=== PATIENT | female | born 1950 | race Hispanic/Latino ===

== ENCOUNTER 2019-11-22 14:35 | Outpatient (CLI) | payer MEDICARE, MEDICAID, SELFPAY ==
--- NOTE | ~2019-11-22 | CT_ITS ---
EXAMINATION: CT lung screening DATE: 11/22/2019 15:05 INDICATION: Personal history of tobacco dependence, prior smoker with 105 pack year smoking history TECHNIQUE: Computed tomography (CT) of the chest was performed without intravenous contrast. The dose -length product (DLP) was 175.42 mGy-cm. Automated exposure control and iterative reconstruction tech FOBO were employed. COMPARISON: 11/04/2018 FINDINGS: There are stable scattered pulmonary nodules measuring up to 4 mm. No new pulmonary nodule is identified. The lungs are free of acute opacities. There is mild emphysema. No pleural effusion or pneumothorax is seen. Calcified mediastinal lymph nodes are consistent with old granulomatous diseas e. No pathologically enlarged thoracic lymph nodes are identified. The heart size is normal. There is moderate thoracic spondylosis. IMPRESSION: 1. Lung-RADS category 2: Benign appearance or behavior. Continue annual screening with noncontrast lo w-dose chest CT in 12 months. Reviewed, dictated and finalized at location A. IMPRESSION: 1. Lung-RADS category 2: Benign appearance or behavior. Continue annual screeni ng with noncontrast low-dose chest CT in 12 months.
== END 2019-11-22 14:36 | disposition home or self-care (01) ==
LOC: ANHIMG 14:46
PROVIDERS: PCP Family Medicine; Visit Provider Family Medicine
DX: Z12.2 Encounter for screening for malignant neoplasm of respiratory organs (principal); Z87.891 Personal history of nicotine dependence
CPT/HCPCS: G0297

== ENCOUNTER 2020-06-27 14:24 | Outpatient (CLI) | payer MEDICARE, MEDICAID, SELFPAY ==
--- NOTE | ~2020-06-27 | MM_ITS ---
EXAMINATION: MM screening [facility] BI w [facility] HISTORY: Screening mammogram TECHNIQUE: Craniocaudal and mediolateral oblique 3-D tomosynthesis images were obtained and synthetic 2-D images were generated. CAD analysis was submitted and interpreted. COMPARISON: 05/10/2019, 04/30/2018, 01/22/2017 bilateral digital screening mammogram examinations BREAST PARENCHYMAL COMPOSITION: There are scattered areas of fibroglandular density. FINDINGS: Occasional bilateral benign calcifications. There is no evidence of suspicious mass, calcif ication, or architectural distortion to suggest malignancy in either breast. There has been no suspic ious interval change. IMPRESSION: 1. No mammographic evidence of malignancy. 2. Recommend routine screening mammography in one year. BI-RADS Category 2: Benign finding(s). Reviewed, dictated and finalized at location A.
== END 2020-06-27 14:25 | disposition home or self-care (01) ==
LOC: ANHIMG 14:26
PROVIDERS: PCP Family Medicine; Visit Provider Family Medicine
DX: Z12.31 Encounter for screening mammogram for malignant neoplasm of breast (principal)
CPT/HCPCS: 77063; 77067

== ENCOUNTER 2020-11-16 15:42 | Outpatient (CLI) | payer MEDICARE, MEDICAID, SELFPAY ==
--- NOTE | ~2020-11-16 | CT_ITS ---
EXAMINATION: CT lung screening DATE: 11/16/2020 16:05 INDICATION: History of tobacco dependence TECHNIQUE: Computed tomography (CT) of the chest was performed without intravenous contrast. The dose -length product was 213.50 mGy-cm. Automated exposure control and iterative reconstruction technique were employed. COMPARISON: Comparison to multiple prior studies sequentially, with oldest reviewed study dated 10/23. FINDINGS: Stable small bilateral pulmonary nodules, largest measuring 5 mm in the left lower lobe. No endobronchial lesions. There is a 4 mm fissural nodule on the left. No new pulmonary nodules or mass es. There is atherosclerosis. No mediastinal lymphadenopathy. The upper abdomen is unremarkable. Mild thoracic spondylosis. No acute osseous abnormality. Stable discoid atelectasis/scarring in the lingu la. IMPRESSION: 1. Lung-RADS category 2: Benign appearance or behavior. Continue annual screening with noncontrast lo w-dose chest CT in 12 months. Reviewed, dictated and finalized at location A. ATOR STARTER IMPRESSION: 1. Lung-RADS category 2: Benign appearance or behavior. Continue annual screeni ng with noncontrast low-dose chest CT in 12 months.
== END 2020-11-16 15:43 | disposition home or self-care (01) ==
LOC: ANHIMG 15:43
PROVIDERS: PCP Family Medicine; Visit Provider Family Medicine
DX: Z12.2 Encounter for screening for malignant neoplasm of respiratory organs (principal); Z87.891 Personal history of nicotine dependence
CPT/HCPCS: 71271

== ENCOUNTER 2021-09-17 15:31 | Outpatient (CLI) | payer MEDICARE, MEDICAID, SELFPAY ==
--- NOTE | ~2021-09-17 | MM_ITS ---
EXAMINATION: MM screening [facility] BI w [facility] HISTORY: Screening TECHNIQUE: Craniocaudal and mediolateral oblique 3-D tomosynthesis images were obtained and synthetic 2-D images were generated. CAD analysis was submitted and interpreted. COMPARISON: Comparison to multiple prior studies sequentially, with oldest reviewed study dated 07/09. BREAST PARENCHYMAL COMPOSITION: Breast composed of scattered areas of fibroglandular density. FINDINGS: There is no evidence of suspicious mass, calcification, or architectural distortion to sugg est malignancy in either breast. There has been no suspicious interval change. IMPRESSION: 1. No mammographic evidence of malignancy. 2. Recommend routine screening mammography in one year. BI-RADS Category 1: Negative Reviewed, dictated and finalized at location A. AZZO INSTALLER
== END 2021-09-17 15:32 | disposition home or self-care (01) ==
PROVIDERS: PCP Family Medicine; Visit Provider Family Medicine
DX: Z12.31 Encounter for screening mammogram for malignant neoplasm of breast (principal)
CPT/HCPCS: 77063; 77067

== ENCOUNTER 2022-10-03 15:33 | Outpatient (CLI) | payer MEDICARE, MEDICAID, SELFPAY ==
--- NOTE | ~2022-10-03 | CT_ITS ---
EXAMINATION: CT lung screening DATE: 10/03/2022 15:56 INDICATION: Nicotine dependence TECHNIQUE: Computed tomography (CT) of the chest was performed without intravenous contrast. Addition al 3D reconstructions utilizing coronal maximum intensity projection (MIP) were performed. Automated exposure control and iterative reconstruction technique were employed. The dose-length product was 26 4.41 mGy-cm. COMPARISON: 11/16/2020 FINDINGS: No interval change in a few calcified and noncalcified small bilateral pulmonary nodules, the largest in the left lower lobe measuring 4-5 mm. No new or enlarging pulmonary nodules. Mild atelectasis in the lingula and right middle lobe. No pulmonary edema, pneumonia or pleural effusion. Heart size is n ormal. Atherosclerotic coronary artery calcific location. No pericardial effusion. Thoracic aorta is normal in caliber. Calcified mediastinal lymph nodes and a few small splenic calcific lesions consist ent with old granulomatous disease. There are bridging osteophytes at multiple levels in the spine, c onsistent with diffuse idiopathic skeletal hyperostosis (DISH). IMPRESSION: 1. Lung-RADS category 2: Benign appearance or behavior. Continue annual screening with noncontrast lo w-dose chest CT in 12 months. Reviewed, dictated and finalized at location B. PRESS FEEDER IMPRESSION: 1. Lung-RADS category 2: Benign appearance or behavior. Continue annual screeni ng with noncontrast low-dose chest CT in 12 months.
== END 2022-10-03 15:34 | disposition home or self-care (01) ==
PROVIDERS: PCP Family Medicine; Visit Provider Family Medicine
DX: Z12.2 Encounter for screening for malignant neoplasm of respiratory organs (principal); Z87.891 Personal history of nicotine dependence
CPT/HCPCS: 71271

== ENCOUNTER 2022-10-23 13:53 | Outpatient (CLI) | payer MEDICARE, MEDICAID, SELFPAY ==
--- NOTE | ~2022-10-23 | US_ITS ---
US arterial ankle brachial ind INDICATION: Lower extremity edema TECHNIQUE: Segmental pressures and plethysmographic and Doppler waveforms of the brachial and lower e xtremity arteries were obtained. COMPARISON: None. FINDINGS: Right and left brachial artery pressures of 125 mm Hg and 122 mm Hg, respectively, are concordant (no rmal difference <= 30 mmHg). The right ankle-brachial index (SANDY) is 1.22 (normal >= 0.9-1.0). The right great toe-brachial index (TBI) is 0.93 (normal >= 0.60). The left SANDY is 1.26. The left TBI is 0.92. IMPRESSION: 1. Normal bilateral ankle-brachial indices. Reviewed, dictated and finalized at location A. BIKE RACER
--- NOTE | ~2022-10-23 | US_ITS ---
EXAMINATION:US venous doppler LE BI INDICATION:Lower extremity edema TECHNIQUE: Multiple grayscale, color flow and Doppler images of the right and left lower extremity de ep venous systems were obtained and reviewed. COMPARISON:No prior studies for comparison. FINDINGS: The common femoral, superficial femoral and popliteal veins demonstrate normal respiratory variation, augmentation and compressibility. Color flow is also seen within the posterior tibial, pe roneal, greater saphenous and profunda veins. IMPRESSION: 1: No lower extremity deep venous thrombosis. Reviewed, dictated and finalized at location A. AL GUNNER SUPERINTENDENT
== END 2022-10-23 13:54 | disposition home or self-care (01) ==
PROVIDERS: PCP Family Medicine; Visit Provider Family Medicine
DX: R60.0 Localized edema (principal); M79.605 Pain in left leg; I73.9 Peripheral vascular disease, unspecified; M79.604 Pain in right leg
CPT/HCPCS: 93922; 93970

== ENCOUNTER 2022-11-12 15:10 | Outpatient (CLI) | payer MEDICARE, MEDICAID, SELFPAY ==
--- NOTE | ~2022-11-12 | MM_ITS ---
EXAMINATION: MM screening [facility] BI w [facility] HISTORY: Screening mammogram TECHNIQUE: Craniocaudal and mediolateral oblique 3-D tomosynthesis images were obtained and synthetic 2-D images were generated. CAD analysis was submitted and interpreted. COMPARISON: 09/17/2021, 06/27/2020, 05/10/2019 BREAST PARENCHYMAL COMPOSITION: The breasts are almost entirely fatty. FINDINGS: No suspicious mass, calcification, or architectural distortion are identified in either mansi ast to suggest malignancy. There has been no suspicious interval change. IMPRESSION: 1. No mammographic evidence of malignancy. 2. Recommend routine screening mammography in one year. BI-RADS Category 1: Negative Reviewed, dictated and finalized at location A. A [employer]
== END 2022-11-12 15:11 | disposition home or self-care (01) ==
LOC: ANHIMG 15:16
PROVIDERS: PCP Family Medicine; Visit Provider Family Medicine
DX: Z12.31 Encounter for screening mammogram for malignant neoplasm of breast (principal)
CPT/HCPCS: 77063; 77067

== ENCOUNTER 2022-11-13 17:19 | Outpatient (CLI) | payer MEDICARE, MEDICAID, SELFPAY ==
--- NOTE | ~2022-11-13 | DEXA_ITS ---
Bone Density Report Name: ANGELY JETER Age: 72 Sex: Female Ethnicity: White Date of : 1950 Indication: monitoring treatment; height loss; asthma or emphysema; rheumatoid arthritis; postmenopausal Referring Provider: SAE, LUIS F Ocasio Study: Bone densitometry was performed. Exam Date: November 13, 2022 Accession number: [id number] Bone Density: Region BMD T-score Z-score Classification AP Spine(L1-L4) 1.012 -0.3 2.0 Normal Femoral Neck (Left) 0.689 -1.4 0.5 Osteopenia Total Hip (Left) 0.884 -0.5 1.2 Normal Femoral Neck (Right) 0.618 -2.1 -0.1 Osteopenia Total Hip (Right) 0.772 -1.4 0.3 Osteopenia Total Hip Mean 0.828 -1.0 0.8 Normal World Health Organization criteria for BMD impression classify patients as: Normal (T-score at or above -1.0), Osteopenia (T-score between -1.0 and -2.5), or Osteoporosis (T-score at or below -2.5). 10-year Fracture Risk: FRAX not reported because: Treated for osteoporosis Previous Exams: Region Exam Age BMD T-score BMD Change BMD Change Date g/cm2 vs Baseline vs Previous Total Hip(Left) 11/13/2022 72 0.884 -0.5 -0.041 (-4.5%) -0.056 (-5.9%) 11/04/2018 68 0.940 0.0 0.015 (1.6%) 0.016 (1.7%) 08/19/2016 66 0.924 -0.1 -0.001 (-0.1%) -0.001 (-0.1%) 08/02/2014 64 0.925 -0.1 Total Hip(Right) 11/13/2022 72 0.772 -1.4 -0.072 (-8.5%) -0.066 (-7.9%) 11/04/2018 68 0.838 -0.9 -0.006 (-0.7%) -0.001 (-0.1%) 08/19/2016 66 0.839 -0.8 -0.004 (-0.5%) -0.004 (-0.5%) 08/02/2014 64 0.843 -0.8 *Denotes significance at 95% confidence level, LSC for Total Hip = 0.027 g/cm2 Clinical Information Provided by Patient: Has rheumatoid arthritis Is being treated for osteoporosis Has used the following medications: Vitamin D, Calcium Has the following medical conditions: Asthma or Emphysema Patient maximum height was 65 Menopause Age: 46 No regular weight bearing exercise Does not regularly consume dairy products Drinks caffeinated beverages Onset of menses at age 13 Number of children 0 Impression: The patient has low bone mass, based on the Right Femoral Neck T-score. The BMD for the Total Hip(Left) decreased, changing by -5.9% since the last DXA exam. The BMD for the Total Hip(Right) decreased, changing by -7.9% since the last DXA exam. Discussion: SIGNIFICANT BONE LOSS OBSERVED. Adherence to therapy (including calcium and vitamin D intake) should be assessed. If compliance is not a factor, review management an
== END 2022-11-13 17:20 | disposition home or self-care (01) ==
PROVIDERS: PCP Family Medicine; Visit Provider Family Medicine
DX: Z78.0 Asymptomatic menopausal state (principal); F17.200 Nicotine dependence, unspecified, uncomplicated; M85.852 Other specified disorders of bone density and structure, left thigh; M85.851 Other specified disorders of bone density and structure, right thigh
CPT/HCPCS: 77080

== ENCOUNTER 2024-02-24 13:35 | Outpatient (CLI) | payer MEDICARE, MEDICAID, SELFPAY ==
--- NOTE | ~2024-02-24 | MM_ITS ---
EXAMINATION: MM screening [facility] BI w [facility] HISTORY: Screening TECHNIQUE: Craniocaudal and mediolateral oblique 3-D tomosynthesis images were obtained and synthetic 2-D images were generated. CAD analysis was submitted and interpreted. COMPARISON: Comparison to multiple prior studies sequentially, with oldest reviewed study dated 04/2017. BREAST PARENCHYMAL COMPOSITION: Not dense: There are scattered areas of fibroglandular density. FINDINGS: There is no evidence of suspicious mass, calcification, or architectural distortion to sugg est malignancy in either breast. There has been no suspicious interval change. IMPRESSION: 1. No mammographic evidence of malignancy. 2. Recommend routine screening mammography in one year. BI-RADS Category 1: Negative Reviewed, dictated and finalized at location B.
== END 2024-02-24 13:36 | disposition home or self-care (01) ==
PROVIDERS: PCP Family Medicine; Visit Provider Family Medicine
DX: Z12.31 Encounter for screening mammogram for malignant neoplasm of breast (principal)
CPT/HCPCS: 77063; 77067

== ENCOUNTER 2024-06-13 00:50 | Day surgery (SDC) | payer MEDICARE, SELFPAY ==
[2024-05-25 13:00] VITALS: BMI 42.0
--- NOTE | 2024-06-13 09:17 | SUR.PREOP ---
[place] consent offered. Pt refused.
[2024-06-13 09:33] VITALS: BP 153/75; PULSE 58; RESP 20; TEMP 36.4; O2SAT 99; BMI 39.9
--- NOTE | 2024-06-13 09:40 | WPDANESEPPF ---
Anes - Initial Pre Proc Eval Procedure: Operation Date: 06/13/24 10:30 Proposed Procedures p Colonoscopy - Jayy Goff MD Date/Time: 06/13/24 09:40 Surgeon: Jayy Goff MD Pre Op Diagnosis: Personal history colon polyps Patient Data Age: 73 Gender: F Height: 1.63 m Weight: 105.6 kg Last Vital Signs Temp 36.4 C 06/13/24 09:33 Pulse 58 L 06/13/24 09:33 Resp 20 06/13/24 09:33 BP 153/75 H 06/13/24 09:33 Pulse Ox 99 06/13/24 09:33 O2 Del Method Room Air 06/13/24 09:33 Allergies Allergy/AdvReac Type Severity Reaction Status Date / Time aspirin Allergy Unknown BLEEDING Verified 06/13/24 09:17 lisinopril Allergy Unknown Swelling Verified 06/13/24 09:17 Home Medications Medication Instructions Recorded Confirmed Type amlodipine 10 mg tablet 10 mg PO DAILY 05/25/24 06/13/24 History atorvastatin 20 mg tablet 20 mg PO DAILY 05/25/24 06/13/24 History clobetasol 0.05 % topical cream 1 applic topical DAILY PRN Itching 05/25/24 06/13/24 History dulaglutide 0.75 mg/0.5 mL 0.75 mg subcut WEEKLY 05/25/24 06/13/24 History subcutaneous pen injector (Trulicity) ergocalciferol (vitamin D2) 1,250 1,250 mcg PO DAILY 05/25/24 06/13/24 History mcg (50,000 unit) capsule famotidine 20 mg tablet 20 mg PO DAILY 05/25/24 06/13/24 History fluticasone propionate 50 50 mcg intranasal DAILY 05/25/24 06/13/24 History mcg/actuation nasal spray,suspension levothyroxine 112 mcg tablet 112 mcg PO DAILY 05/25/24 06/13/24 History metformin 500 mg tablet,extended 500 mg PO BID 05/25/24 06/13/24 History release 24 hr metoprolol succinate 100 mg 100 mg PO DAILY 05/25/24 06/13/24 History tablet,extended release 24 hr zolpidem 5 mg tablet 5 mg PO DAILY 05/25/24 06/13/24 History Calcium Adult 1 tab-cap PO DAILY 06/13/24 06/13/24 History Vitamin B-6 1 tab-cap PO DAILY 06/13/24 06/13/24 History Vitamin C 1 tab-cap PO DAILY 06/13/24 06/13/24 History albuterol 90 mcg/actuation aerosol 90 mcg inhalation DAILY PRN SOB 06/13/24 06/13/24 History inhaler hydrochlorothiazide 25 mg tablet 25 mg PO DAILY 06/13/24 06/13/24 History potassium chloride 20 mEq 20 meq PO DAILY 06/13/24 06/13/24 History tablet,extended release umeclidinium 62.5 mcg-vilanterol 1 inh inhalation DAILY 06/13/24 06/13/24 History 25 mcg/actuation powdr for inhalation (Anoro Ellipta) zinc 1 tab-cap PO DAILY 06/13/24 06/13/24 History Patient hx anesthesia problems: none Family hx anesthesia problems: none Results Review: All pre-operative results and documents have been reviewed as part of the pre-operative evaluation. [facility] Past Medical History Medical History (Updated 06/13/24 @ 09:40 by Yousif Vergara MD) HTN (hypertension) Morbid obesity EILEEN (obstructive sleep apnea) Family History Family History Other Cerebrovascular accident Diabetes mellitus Family history of arthritis Family history of blood dyscrasia Family history of cardiovascular disease Family history of elevated blood lipids Family history of genitourinary disease Family history of hearing loss Family history of migraine headaches Family history of obesity Hypertension Malignant neoplasm of prostate Social History Social History Smoking packs per day: 3 Smoking cigarettes per day: 60.0 Smoking status: Former smoker Tobacco type: cigarettes Alcohol intake: current Living arrangements: alone Spiritual care concerns: No Anes - Eval Final PreProcedure Day of Procedure 06/13/24 09:40 Patient weight: morbidly obese Heart: regular rate and rhythm Lungs: clear to auscultation Airway: Mallampati scale class II Neurological: alert and oriented Last oral intake: >/= 8 hours ASA classification: III Emergent: no Anesthetic plan: proceed Anesthesia type and monitoring: general GIVS
[2024-06-13] MEDS: LACTATED RINGERS 1,000 ML 150 ML IV CONT (09:50)
[2024-06-13 09:51] LABS: Glucose Point of Care 94 mg/dl (65-105)
--- NOTE | 2024-06-13 10:31 | PM.HPGS ---
History of Present Illness History of Present Illness Consent: Risks, benefits, and alternatives have been discussed and questions answered. Patient agrees to proceed with procedure. Chief complaint: Personal history colon polyps Narrative: Kimberly Delgado is a 73 year old female with history of colon polyp Review of Systems Review of Systems: All systems reviewed & are unremarkable except as noted in HPI and below PMFSH Past Medical History Medical History (Updated 06/13/24 @ 10:31 by Jayy Goff MD) Colon polyp HTN (hypertension) Morbid obesity EILEEN (obstructive sleep apnea) Family History Family History Other Cerebrovascular accident Diabetes mellitus Family history of arthritis Family history of blood dyscrasia Family history of cardiovascular disease Family history of elevated blood lipids Family history of genitourinary disease Family history of hearing loss Family history of migraine headaches Family history of obesity Hypertension Malignant neoplasm of prostate Social History Social History Smoking packs per day: 3 Smoking cigarettes per day: 60.0 Smoking status: Former smoker Tobacco type: cigarettes Alcohol intake: current Living arrangements: alone Spiritual care concerns: No Meds Home Medications and Allergies Home Medications Medication Instructions Recorded Confirmed Type amlodipine 10 mg tablet 10 mg PO DAILY 05/25/24 06/13/24 History atorvastatin 20 mg tablet 20 mg PO DAILY 05/25/24 06/13/24 History clobetasol 0.05 % topical cream 1 applic topical DAILY PRN Itching 05/25/24 06/13/24 History dulaglutide 0.75 mg/0.5 mL 0.75 mg subcut WEEKLY 05/25/24 06/13/24 History subcutaneous pen injector (Trulicity) ergocalciferol (vitamin D2) 1,250 1,250 mcg PO DAILY 05/25/24 06/13/24 History mcg (50,000 unit) capsule famotidine 20 mg tablet 20 mg PO DAILY 05/25/24 06/13/24 History fluticasone propionate 50 50 mcg intranasal DAILY 05/25/24 06/13/24 History mcg/actuation nasal spray,suspension levothyroxine 112 mcg tablet 112 mcg PO DAILY 05/25/24 06/13/24 History metformin 500 mg tablet,extended 500 mg PO BID 05/25/24 06/13/24 History release 24 hr metoprolol succinate 100 mg 100 mg PO DAILY 05/25/24 06/13/24 History tablet,extended release 24 hr zolpidem 5 mg tablet 5 mg PO DAILY 05/25/24 06/13/24 History Calcium Adult 1 tab-cap PO DAILY 06/13/24 06/13/24 History Vitamin B-6 1 tab-cap PO DAILY 06/13/24 06/13/24 History Vitamin C 1 tab-cap PO DAILY 06/13/24 06/13/24 History albuterol 90 mcg/actuation aerosol 90 mcg inhalation DAILY PRN SOB 06/13/24 06/13/24 History inhaler hydrochlorothiazide 25 mg tablet 25 mg PO DAILY 06/13/24 06/13/24 History potassium chloride 20 mEq 20 meq PO DAILY 06/13/24 06/13/24 History tablet,extended release umeclidinium 62.5 mcg-vilanterol 1 inh inhalation DAILY 06/13/24 06/13/24 History 25 mcg/actuation powdr for inhalation (Anoro Ellipta) zinc 1 tab-cap PO DAILY 06/13/24 06/13/24 History Allergies Allergy/AdvReac Type Severity Reaction Status Date / Time aspirin Allergy Unknown BLEEDING Verified 06/13/24 09:17 lisinopril Allergy Unknown Swelling Verified 06/13/24 09:17 Vital Signs Vital Signs - 24 hr 06/13/24 09:33 Temperature 97.6 F Pulse Rate 58 L Respiratory Rate 20 Blood Pressure 153/75 H Pulse Oximetry 99 Oxygen Delivery Room Air Exam Const: General: comfortable and no acute distress HENMT: Face/Nose/Sinus: Normal nares present Eyes: General: appearance normal, both eyes and all related structures Neck: Neck: no JVD Resp: Auscultation: clear to auscultation bilaterally Cardio: Rate: regular rate Rhythm: regular rhythm GI: Inspection: non-distended GI Palp: Yes Soft to palpation Skin: General skin exam: normal color Neuro: General: gait no
--- NOTE | 2024-06-13 10:51 | SUR.OPER ---
Ascending colon polyp not retrieved. Dr. Herrera notified.
[2024-06-13 10:53] VITALS: BP 84/35; PULSE 58; RESP 17; O2SAT 98
[2024-06-13 11:03] VITALS: BP 104/51; PULSE 48; RESP 16; O2SAT 97
[2024-06-13 11:13] VITALS: BP 118/46; PULSE 48; RESP 16; O2SAT 97
== END 2024-06-13 11:28 | disposition home or self-care (01) ==
PROVIDERS: PCP Nurse Practitioner Family; Visit Provider Internal Medicine Gastroenterology
PROC: 0DJD8ZZ Inspection of Lower Intestinal Tract, Via Natural or Artificial Opening Endoscopic (ICD-10-PCS; CPT 45378; principal; 2024-06-13 10:30)
DX: Z12.11 Encounter for screening for malignant neoplasm of colon (principal); K63.5 Polyp of colon; K64.8 Other hemorrhoids; K57.30 Diverticulosis of large intestine without perforation or abscess without bleeding; I10 Essential (primary) hypertension; G47.33 Obstructive sleep apnea (adult) (pediatric); E66.01 Morbid (severe) obesity due to excess calories; Z68.41 Body mass index [BMI] 40.0-44.9, adult; Z79.85 Long-term (current) use of injectable non-insulin antidiabetic drugs; Z79.84 Long term (current) use of oral hypoglycemic drugs; Z79.51 Long term (current) use of inhaled steroids; Z87.891 Personal history of nicotine dependence; Z80.42 Family history of malignant neoplasm of prostate; Z82.49 Family history of ischemic heart disease and other diseases of the circulatory system
CPT/HCPCS: 45385; 82948; J2704; J7120

== ENCOUNTER 2025-02-08 13:25 | Inpatient (IN) | payer MEDICARE, MEDICAID, SELFPAY ==
[2025-02-08] VITALS (28 sets, daily range): BP systolic 116–158; BP diastolic 46–85; PULSE 60–112; RESP 14–22; TEMP 36.4; O2SAT 90–100; BMI 42.7
--- NOTE | ~2025-02-08 | US_ITS ---
EXAMINATION: US abdomen limited DATE: 02/09/2025 08:56 INDICATION: Gallstones, epigastric pain, nausea and vomiting. TECHNIQUE: Multiple grayscale and Doppler ultrasound images of the abdomen were obtained. COMPARISON: None FINDINGS: The pancreatic head and body are normal in appearance. The pancreatic tail is not visualized. Liver has normal contour, with a smooth surface. There is increased parenchymal echogenicity and coarsened echotexture consistent with diffuse hepatic steatosis. Geographic regions of more hypoechoic focal fa tty sparing along the gallbladder fossa. There is a 6 cm and 7 mm more echogenic focus in the right h epatic lobe which appears to correspond to a macroscopic fat attenuation lesion on the prior CT which could represent either focally more increased hepatic steatosis or a small lipoma. No correlate is i dentified for the additional more peripheral high attenuation/enhancing subcapsular hepatic lesions i dentified on prior CT. No intrahepatic biliary duct dilation suspected. Portal venous flow was seen i n the hepatopetal, normal direction and has normal Doppler waveform. 2.5 cm shadowing gallstone at th e neck of the otherwise normal-appearing gallbladder. Sonographic Perdue sign was reported as negativ e by the wheel molder. The common bile duct measures 3-4 mm, which is normal. Visualized portion of th e right kidney demonstrates normal contour and echogenicity with no hydronephrosis. Visualized cephal ad inferior vena cava is normal. IMPRESSION: 1. Cholelithiasis with normal appearing gallbladder and no sonographic Perdue sign to suggest acute c holecystitis. 2. Diffuse hepatic steatosis with focal sparing along the gallbladder fossa. No correlate identified for the small regions of subcapsular hyperdensity/enhancement on prior CT most likely related to foca l fatty sparing or transient hepatic attenuation difference. Consider pre and postcontrast MRI for fu rther evaluation. Reviewed, dictated and finalized at location A. IMPRESSION: 1. Cholelithiasis with normal appearing gallbladder and no sonographic Perdue s ign to suggest acute cholecystitis. 2. Diffuse hepatic steatosis with focal sparing along the gallbladder fossa. No correlate identified for the small regions of subcapsular hyperdensity/enhance ment on prior CT most likely related to focal fatty sparing or transient hepati c attenuation difference. Consider pre and postcontrast MRI for further evaluat ion.
--- NOTE | ~2025-02-08 | CT_ITS ---
CTA chest abdomen pelvis Ordering provider: Citlalli Grimm PA-C History: 74 years Female with . chest pain, abd pain . Comparison: None. Technique: CT chest with IV contrast. CT abdomen and pelvis CT abdomen and pelvis with IV and with or al contrast. Radiation reduction technique utilized The dose-length product was 1840.39 mGy-cm. 100 mL Omnipaque 350 was given IV. FINDINGS: CHEST: --VISUALIZED THORACIC INLET: Normal. --MEDIASTINUM: Aorta/coronary arteries: Mild atheromatous disease. Heart/other: The heart is slightly enlarged. Lymph nodes: No mediastinal or hilar adenopathy. --LUNGS: No pulmonary nodules or masses. No infiltrates or effusions. No pneumothorax. Dependent atel ectatic changes. --MUSCULOSKELETAL: Soft tissues: The superficial soft tissues are normal. Bones: Age appropriate degenerative changes of the spine. ABDOMEN/PELVIS: --MUSCULOSKELETAL: Bones: Age appropriate degenerative changes of the spine. No suspicious bony lytic or sclerotic lesio ns. Superficial soft tissues: The superficial soft tissues are normal. --UPPER ABDOMINAL ORGANS: Liver: 9 mm enhancing lesions seen in the left lobe of the liver which may be HCC versus arteriovenou s shunting. Follow-up advised. Another focal infiltrate is also seen in the subcapsular area of the r ight lobe measuring 1.3 cm. Follow-up advised. Filling defect in the portal vein versus mixing of blood with contrast is seen. Clinical correlation and if clinically warranted ultrasound evaluation advised. Gallbladder: Cholelithiasis. Spleen: Normal. Small hypodensity suggestive of a cyst is seen in the inferior portion of the spleen. Stomach/duodenum: Thickened lower esophagus suggestive of reflux esophagitis. Pancreas: Normal. Slightly prominent pancreatic duct. Adrenals: Normal. Kidneys: Right kidney lower pole cyst is seen measuring 1.6 cm. --PELVIC ORGANS: The bladder shows slightly thickened wall may indicate cystitis. Clinical correlatio n advised. No bladder stones. --BOWEL AND MESENTERY: Colon: Mild diverticulosis without diverticulitis sigmoid colon. Slightly thickened wall of the sigmo id colon which may indicate colitis. Follow-up advised. Normal appendix. Small Bowel: Normal. No obstruction. Peritoneum/mesentery: No free air or free fluid. No mesenteric lymphadenopathy. --RETROPERITONEUM: Mild atheromatous disease of the abdominal aorta. No retroperitoneal lymphadenop athy. IMPRESSION: CHEST: 1. No pulmonary embolism. 2. No acute cardiopulmonary pathology. ABDOMEN/PELVIS: 1. No enhancing lesions in the liver. Differential include hepatocellular carcinoma versus arteriove nous shunting. Follow-up advised. 2. Filling defect in the portal vein which may be mixing of blood with contrast. Thrombus is less li alicia although cannot be excluded. Clinical correlation and if warranted ultrasound is advised. 3. Cholelithiasis. 4. Slight thickening of the wall of the sigmoid colon which may indicate colitis. Follow-up advised. 5. Thickened lower esophagus which may indicate reflux esophagitis. Reviewed, dictated and finalized at location A. IMPRESSION: CHEST: 1. No pulmonary embolism. 2. No acute cardiopulmonary pathology. ABDOMEN/PELVIS: 1. No enhancing lesions in the liver. Differential include hepatocellular carc inoma versus arteriovenous shunting. Follow-up advised. 2. Filling defect in the portal vein which may be mixing of blood with contras t. Thrombus is less likely although cannot be excluded. Clinical correlation an d if warranted ultrasound is advised. 3. Cholelithiasis. 4. Slight thickening of the wall of the sigmoid colon which may indicate colit is. Follow-up advised. 5. Thickened lower esophagus which may indicate reflux esophagitis.
--- NOTE | ~2025-02-08 | US_ITS ---
US retroperitoneal duplex ltd Ordering provider: Citlalli Grimm PA-C History: . abnormal CT . Comparison: None. FINDINGS/impression: No evidence of hepatic or portal vein thrombosis seen. Gallbladder stone. Reviewed, dictated and finalized at location A.
--- NOTE | ~2025-02-08 | XR_ITS ---
XR chest 1V portable 02/08/2025 14:28 Indication: Epigastric abdomen pain Procedure: AP portable chest Comparison: 02/08/2019 Findings: Borderline heart size with bibasilar airspace disease. Heart size normal. There is atherosc lerosis of the aorta. No pleural effusion or pneumothorax. No acute osseous abnormality. Impression: 1: Bibasilar airspace disease may represent atelectasis, edema or pneumonia. Reviewed, dictated and finalized at location A. Impression: 1: Bibasilar airspace disease may represent atelectasis, edema or pneumonia.
--- NOTE | ~2025-02-08 | MR_ITS ---
EXAMINATION: MR abdomen wo/w con DATE: 02/09/2025 13:17 INDICATION: Diffuse hepatic steatosis with indeterminate liver lesions on prior CT. TECHNIQUE: Magnetic resonance imaging (MRI) of the abdomen was performed without and with 20 mL Multi inocencia intravenous contrast. Sequences included coronal T2-weighted SS-FSE, coronal and axial FS 2D-F IESTA, axial STIR FSE, axial T2-weighted SS-FSE, axial T2-weighted FS SS-FSE, axial diffusion-weighte d SE, axial dual-echo T1-weighted FSPGR, and axial and coronal T1-weighted LAVA. Postcontrast axial T 1-weighted LAVA images were obtained in a time course. Postcontrast coronal T1-weighted LAVA images w ere obtained. COMPARISON: CT dated 02/08/2025 FINDINGS: Borderline heart size. No pericardial or pleural effusion. Mild bibasilar atelectasis. Slight signal dropout in the liver on opposed phase images consistent with mild diffuse hepatic steatosis with foca l sparing along the gallbladder fossa and melody hepatis. There is a 5 mm T1 hyperintense, fat saturat ing intrahepatic lipoma within the right hepatic lobe no abnormally enhancing hepatic lesions to sugg est neoplasm. The small regions of peripheral enhancement on the prior arterial phase CT would be mos t consistent with transient hepatic attenuation difference. Large low signal intensity gallstone at t he neck of the gallbladder. There is some dependently layering sludge in the fundus of the gallbladde r. There is a minimal amount of pericholecystic fluid between the liver and gallbladder at the gallbl adder fossa. There is focal adenomyomatosis at the fundus of the gallbladder. The gallbladder measure s 13.9 x 3.9 x 4.2 cm. Spleen, pancreas and bilateral adrenal glands are normal. There are few T2 hyp erintense nonenhancing bilateral renal cysts the largest on the right measuring 1.7 cm. There are few scattered colonic diverticula without adjacent from trace stranding to suggest of typhlitis. No keith l obstruction. Normal appendix. No pathologically enlarged abdominal or upper pelvic lymphadenopathy. Multiple tiny foci of susceptibility artifact along the periumbilical anterior abdominal wall consis tent with prior surgery potentially umbilical hernia repair. Severe cervical spondylosis with fibrofa tty degenerative endplate changes at L4-L5. Marrow signal is otherwise unremarkable. IMPRESSION: 1. . Mild diffuse hepatic steatosis with 5 mm macroscopic fat containing likely lipoma in the right h epatic lobe. No other hepatic lesions identified. No correlate identified for the appearance small il l-defined regions of peripheral enhancement at the liver on the prior arterial phase CT which would b e most consistent with transient hepatic attenuation difference. 2. Persistent gallstone at the neck of the gallbladder with trace amount of pericholecystic fluid bet ween the gallbladder and liver at the gallbladder fossa and could not exclude early acute cholecystit is although the Perdue sign was normal and the prior ultrasound. Could consider HIDA scan for more de finitive determination. 3. Focal adenomyomatosis at the fundus of the gallbladder. Reviewed, dictated and finalized at location A. IMPRESSION: 1. . Mild diffuse hepatic steatosis with 5 mm macroscopic fat containing likely lipoma in the right hepatic lobe. No other hepatic lesions identified. No alan elate identified for the appearance small ill-defined regions of peripheral enh ancement at the liver on the prior arterial phase CT which would be most consis tent with transient hepatic attenuation difference. 2. Persistent gallstone at the neck of the gallbladder with trace amount of per icholecystic fluid between the gallbladder and liver at the gallbladder fossa a nd could not exclude early acute cholecystitis although the Perdue sign was nor mal and the prior ultrasound. Could consider HIDA scan for more definitive dete rmination. 3. Focal adenomyomatosis at the fundus of the gallbladder.
--- NOTE | 2025-02-08 13:52 | ED_ITS ---
HPI - Nausea/Vomiting/Diarrhea General Chief complaint: Nausea/Vomiting/Diarrhea <Citlalli Grimm PA-C - Last Filed: 02/08/25 18:34> Stated complaint: N/V <Citlalli Grimm PA-C - Last Filed: 02/08/25 18:34> Time Seen by Provider: 02/08/25 13:33 <Citlalli Grimm PA-C - Last Filed: 02/08/25 18:34> History of Present Illness HPI Narrative: 72-year-old female with history of EILEEN, hypertension, thyroid disease s/p hernia repair presents to the emergency department for nausea and vomiting that started yesterday evening after eating a turkey sandwich. Patient states she has been having pain to her epigastrium/chest that radiates to her back with associated nausea and vomiting. She states now she is dry heaving because she does not have anything left in her stomach. She reports black stools. Denies fever but endorses chills. Denies dysuria or hematuria, cough or congestion. She is also reporting shortness of breath on my evaluation. She endorses lower extremity edema that is been there for ?a while?. Denies history of CHF or cardiac disease. She denies history of stomach ulcers. Denies EtOH use, hematochezia, hematemesis or coffee-ground emesis. Patient last had a colonoscopy on 06/13/2024 which showed a 3 mm polyp, diverticulosis with no active bleeding and small internal hemorrhoids with no active bleeding. <Citlalli Grimm PA-C - Last Filed: 02/08/25 18:34> Related Data Home medications: Home Medications ?Medication ?Instructions ?Recorded ?Confirmed ?Last Taken ?Type amlodipine 10 mg tablet 10 mg PO DAILY 05/25/24 06/13/24 06/12/24 History atorvastatin 20 mg tablet 20 mg PO DAILY 05/25/24 06/13/24 06/12/24 History clobetasol 0.05 % topical cream 1 applic topical DAILY PRN Itching 05/25/24 06/13/24 06/12/24 History dulaglutide 0.75 mg/0.5 mL 0.75 mg subcut WEEKLY 05/25/24 06/13/24 06/12/24 History subcutaneous pen injector (Trulicity) ergocalciferol (vitamin D2) 1,250 1,250 mcg PO DAILY 05/25/24 06/13/24 06/12/24 History mcg (50,000 unit) capsule famotidine 20 mg tablet 20 mg PO DAILY 05/25/24 06/13/24 06/12/24 History fluticasone propionate 50 50 mcg intranasal DAILY 05/25/24 06/13/24 06/12/24 History mcg/actuation nasal spray,suspension levothyroxine 112 mcg tablet 112 mcg PO DAILY 05/25/24 06/13/24 06/13/24 History metformin 500 mg tablet,extended 500 mg PO BID 05/25/24 06/13/24 06/12/24 History release 24 hr metoprolol succinate 100 mg 100 mg PO DAILY 05/25/24 06/13/24 06/12/24 History tablet,extended release 24 hr zolpidem 5 mg tablet 5 mg PO DAILY 05/25/24 06/13/24 06/12/24 History Calcium Adult 1 tab-cap PO DAILY 06/13/24 06/13/24 06/13/24 History Vitamin B-6 1 tab-cap PO DAILY 06/13/24 06/13/24 06/12/24 History Vitamin C 1 tab-cap PO DAILY 06/13/24 06/13/24 06/12/24 History albuterol 90 mcg/actuation aerosol 90 mcg inhalation DAILY PRN SOB 06/13/24 06/13/24 06/12/24 History inhaler hydrochlorothiazide 25 mg tablet 25 mg PO DAILY 06/13/24 06/13/24 06/12/24 History potassium chloride 20 mEq 20 meq PO DAILY 06/13/24 06/13/24 06/12/24 History tablet,extended release umeclidinium 62.5 mcg-vilanterol 1 inh inhalation DAILY 06/13/24 06/13/24 06/12/24 History 25 mcg/actuation powdr for inhalation (Anoro Ellipta) zinc 1 tab-cap PO DAILY 06/13/24 06/13/24 06/12/24 History <Citlalli Grimm PA-C - Last Filed: 02/08/25 18:34> Allergies/Adverse reactions: Allergies Allergy/AdvReac Type Severity Reaction Status Date / Time aspirin Allergy Unknown BLEEDING Verified 02/08/25 13:59 lisinopril Allergy Unknown Swelling Verified 02/08/25 13:59 <Citlalli Grimm PA-C - Last Filed: 02/08/25 18:34> Review of Systems 2 Review of Systems: All systems reviewed & are unremarkable except as noted in HPI and below <Citlalli Grimm PA-C - Last Filed: 02/08/25 18:34> [facility] Past Medical History Medical History: Medical History Colon polyp HTN (hypertension) EILEEN (obstructive sleep apnea) Morbid obesity <Citlalli Grimm PA-C - Last Filed: 02/08/25 18:34> Family History Family History: Family History Other Cerebrovascular accident Diabetes mellitus Family history of arthritis Family history of blood dyscrasia Family history of cardiovascular disease Family history of elevated blood lipids Family history of genitourinary disease Family history of hearing loss Family history of migraine headaches Family history of obesity Hypertension Malignant neoplasm of prostate <Citlalli Grimm PA-C - Last Filed: 02/08/25 18:34> Social History Social History: Social History Smoking packs per day: 3 Smoking cigarettes per day: 60.0 Smoking status: Former smoker Tobacco type: cigarettes Alcohol intake: current Living arrangements: alone Spiritual care concerns: No <Citlalli Grimm PA-C - Last Filed: 02/08/25 18:34> Exam 2 Narrative: GENERAL: Ill-appearing, uncomfortable, anxious HEAD: Normocephalic, atraumatic. EYES: EOMI. ENT: Nares clear, no rhinorrhea or epistaxis. Mucous membranes moist. NECK: Supple. CHEST: Clear to auscultation. No respiratory distress. HEART: Regular rate and rhythm. No murmur heard. Normal peripheral pulses. ABDOMEN: Quiet bowel sounds. Abdomen soft with tenderness in the epigastrium and left upper quadrant and right upper quadrant no rebound or rigidity. Rectal exam chaperoned by EDVIN Hidalgo shows no melena or hematochezia. Negative guiaic. EXTREMITIES: Normal range of motion. Pitting edema to BLE SKIN: Warm, dry, no rash. NEURO: No focal deficits. Alert and oriented x3 <Citlalli Grimm PA-C - Last Filed: 02/08/25 18:34> Course ACQUISITIONS ASSISTANT/PA Physician Supervision I agree with midlevel documentation; I performed the medical decision making component of this evaluation. <Rylee Aguilar MD - Last Filed: 02/08/25 18:42> Vital Signs Vital signs: Vital Signs Temperature 97.6 F 02/08/25 13:20 Pulse Rate 98 02/08/25 13:20 Respiratory Rate 20 02/08/25 13:20 Blood Pressure 157/70 H 02/08/25 13:20 Pulse Oximetry 97 02/08/25 13:20 Oxygen Delivery Room Air 02/08/25 13:20 Temperature 97.6 F 02/08/25 13:43 Pulse Rate 64 02/08/25 18:01 Respiratory Rate 15 02/08/25 18:01 Blood Pressure 158/73 H 02/08/25 18:01 Pulse Oximetry 90 02/08/25 18:01 Oxygen Delivery Room Air 02/08/25 17:21 Oxygen Flow Rate 3 02/08/25 14:51 <Citlalli Grimm PA-C - Last Filed: 02/08/25 18:34> Vital Signs Temperature 97.6 F 02/08/25 13:20 Pulse Rate 98 02/08/25 13:20 Respiratory Rate 20 02/08/25 13:20 Blood Pressure 157/70 H 02/08/25 13:20 Pulse Oximetry 97 02/08/25 13:20 Oxygen Delivery Room Air 02/08/25 13:20 Temperature 97.6 F 02/08/25 13:43 Pulse Rate 64 02/08/25 18:01 Respiratory Rate 15 02/08/25 18:01 Blood Pressure 158/73 H 02/08/25 18:01 Pulse Oximetry 90 02/08/25 18:01 Oxygen Delivery Room Air 02/08/25 17:21 Oxygen Flow Rate 3 02/08/25 14:51 <Rylee Aguilar MD - Last Filed: 02/08/25 18:42> MDM - Nausea/Vomiting/Diarrhea MDM Narrative Medical decision making narrative: 74-year-old female with history of hypertension, EILEEN, obesity, thyroid disease presents to the emergency department for abdominal pain, nausea and vomiting that started yesterday after eating a turkey sandwich. Triage vitals with elevated blood pressure, otherwise unremarkable. Patient is afebrile. Exam significant for the above. Patient does appear ill-appearing and uncomfortable. IV line obtained. Given reported chest pain/epigastric abdominal pain that radiates to the back, will add on CTA chest abdomen pelvis to evaluate for dissection in addition to troponin, lab work, chest x-ray. Will also add on a BNP given reported lower extremity edema, however this appears to be chronic. CBC with leukocytosis 15.5. Suspect this is reactive in nature and due to retching. Chemistries with mild hypokalemia of 3.2, otherwise unremarkable. Potassium orally repleted. Magnesium within normal limits. Normal LFTs. Lipase within normal limits. UA 3-5 RBCs, no UTI. Chest x-ray shows bibasilar airspace disease which may represent atelectasis, edema or pneumonia. Patient denies any cough or congestion, no fevers, low suspicion for PNA. Her BNP is normal when age adjusted, low suspicion for CHF. Her EKG does show AFib with RVR with a rate of 111. No hx of afib. ST depressions in V4, V5, V6 and lead 2, no ST elevations. Repeat EKG shows sinus bradycardia with rate of 59, there is improvement in the ST depressions, no ST elevations. Patient was placed on 3 L nasal cannula by nursing staff after the patient was sleeping and became hypoxic. She does have a history of EILEEN. Immediately upon awakening, patient is satting 95% and above on room air in no respiratory distress. CTA CHEST/ABD/PELVIS IMPRESSION: CHEST: 1. No pulmonary embolism. 2. No acute cardiopulmonary pathology. ABDOMEN/PELVIS: 1. No enhancing lesions in the liver. Differential include hepatocellular carcinoma versus arteriovenous shunting. Follow-up advised. 2. Filling defect in the portal vein which may be mixing of blood with contrast. Thrombus is less likely although cannot be excluded. Clinical correlation and if warranted ultrasound is advised. 3. Cholelithiasis. 4. Slight thickening of the wall of the sigmoid colon which may indicate colitis. Follow-up advised. 5. Thickened lower esophagus which may indicate reflux esophagitis. Ultrasound of portal vein shows no evidence of hepatic or portal vein thrombosis. Patient updated on results. She received Pepcid, Zofran, Reglan and morphine with improvement in symptoms. On re-evaluation she is resting comfortably in exam bed states she feels much better. I suspect overall her symptoms are due to GI in nature, possibly gastritis/esophagitis versus biliary colic versus PUD. Her Hemoccult was negative. I also discussed concern given her initial presentation and initial EKG changes for possible cardiac etiology. I feel she can benefit from admission for chest pain, trending troponins, and new onset paroxysmal afib. Patient is amenable to this. I discussed workup with [facility] hospitalist, Lynda, who agrees to admission. We did discuss initiating heparin for new onset AFib. Patient reportedly has an allergy to aspirin because she states she was hospitalized in the ICU 10 years ago for ?bleeding? in her abdomen, howeer she denies history of ulcers. Again hemoccult is negative. Lynda advises to start heparin in the ED for now given chads Vasc score of 3 and has bled score of 2 and will reevaluate on admission. <Citlalli Grimm PA-C - Last Filed: 02/08/25 18:34> Lab Data Result diagrams: 02/08/25 14:00 02/08/25 14:37 <Citlalli Grimm PA-C - Last Filed: 02/08/25 18:34> Labs: Lab Results 02/08/25 02/08/25 Range/Units 14:00 14:37 WBC 15.5 H (4.5-10.0) K/mm3 RBC 4.52 (4.2-5.4) M/mm3 Hgb 14.2 (12.0-15.0) g/dL Hct 42.8 (37.0-47.0) % MCV 94.7 (80-100) fl MCH 31.4 (26-34) pg MCHC 33.2 (32-36) g/dl RDW 12.7 (11.5-14.5) % Plt Count 318 (150-375) k/mm3 MPV 11.0 H (7.4-10.4) fl Immature Gran % (Auto) 2.9 H (0-0.5) % Neut % (Auto) 86.8 H (45.5-73.1) % Lymph % (Auto) 7.4 L (18.3-44.2) % [place] % (Auto) 2.3 L (2.6-8.5) % Eos % (Auto) 0.1 (0-4.4) % Baso % (Auto) 0.5 (0.2-1.2) % Lymph # (Auto) 1.14 (0.9-3.2) K/mm3 [place] # (Auto) 0.4 (0.1-0.6) K/mm3 Eos # (Auto) 0.0 (0-0.3) K/mm3 Baso # (Auto) 0.1 (0.0-0.1) K/mm3 Abs Immat Gran (auto) 0.45 H (0.00-0.031) K/mm3 Absolute Neuts (auto) 13.5 H (1.3-6.7) K/mm3 Absolute Nucleated RBC 0.000 (0.0-0.012) K/mm3 Nucleated RBC % 0.0 (0.0-0.2) % PT 13.6 (11.1-14.7) Seconds INR 1.0 APTT 27.0 (22.3-36.8) Seconds Sodium 137 (137-145) mmol/L Potassium 3.2 L (3.4-5.0) mmol/L Chloride 102 (98-107) mmol/L Carbon Dioxide 23 (22-30) mmol/L Anion Gap 12 (4-12) mmol/L BUN 10 (7-17) mg/dL Creatinine 0.53 L (0.7-1.0) mg/dL Estim Creat Clear Calc 94 ml/min Estimated GFR > 60 (59 - ) Glucose 182 H (65-110) mg/dL Calcium 9.2 (8.4-10.2) mg/dL Magnesium 1.8 (1.6-2.3) mg/dL Total Bilirubin 0.9 (0.2-1.3) mg/dL AST 30 (14-36) U/L ALT 28 (6-35) U/L Alkaline Phosphatase 117 (38-126) U/L Troponin I < 0.012 (0.000-0.034) ng/mL NT-Pro-B Natriuret Pep 599 H (19.9-100) pg/mL Total Protein 8.2 (6.3-8.2) g/dL Albumin 4.8 (3.5-5.1) g/dL Lipase 39 (23-300) U/L Urine Color Yellow (Yellow) Urine Appearance Clear (Clear) Urine pH 8.0 (5.0-9.0) Ur Specific [place] 1.013 (1.001-1.035) Urine Protein 2+ H (Negative) mg/dL Urine Glucose (UA) Trace H (Negative) mg/dL Urine Ketones 1+ H (Negative) mg/dL Ur Blood (Man) Negative (Negative) Urine Nitrate Negative (Negative) Urine Bilirubin Negative (Negative) Urine Urobilinogen 0.2 (<2.0) mg/dL Leukocyte Esterase Rfl Negative (Negative) JOSEFINA/UL Urine RBC 3-5 H (0-2) /hpf Urine WBC 0-5 (0-3) /hpf Ur Squamous Epith Cells None seen (Few) /hpf Urine Bacteria None seen /hpf Urine Casts 0-2 <Citlalli Grimm PA-C - Last Filed: 02/08/25 18:34> Lab Results 02/08/25 02/08/25 Range/Units 14:00 14:37 WBC 15.5 H (4.5-10.0) K/mm3 RBC 4.52 (4.2-5.4) M/mm3 Hgb 14.2 (12.0-15.0) g/dL Hct 42.8 (37.0-47.0) % MCV 94.7 (80-100) fl MCH 31.4 (26-34) pg MCHC 33.2 (32-36) g/dl RDW 12.7 (11.5-14.5) % Plt Count 318 (150-375) k/mm3 MPV 11.0 H (7.4-10.4) fl Immature Gran % (Auto) 2.9 H (0-0.5) % Neut % (Auto) 86.8 H (45.5-73.1) % Lymph % (Auto) 7.4 L (18.3-44.2) % [place] % (Auto) 2.3 L (2.6-8.5) % Eos % (Auto) 0.1 (0-4.4) % Baso % (Auto) 0.5 (0.2-1.2) % Lymph # (Auto) 1.14 (0.9-3.2) K/mm3 [place] # (Auto) 0.4 (0.1-0.6) K/mm3 Eos # (Auto) 0.0 (0-0.3) K/mm3 Baso # (Auto) 0.1 (0.0-0.1) K/mm3 Abs Immat Gran (auto) 0.45 H (0.00-0.031) K/mm3 Absolute Neuts (auto) 13.5 H (1.3-6.7) K/mm3 Absolute Nucleated RBC 0.000 (0.0-0.012) K/mm3 Nucleated RBC % 0.0 (0.0-0.2) % PT 13.6 (11.1-14.7) Seconds INR 1.0 APTT 27.0 (22.3-36.8) Seconds Sodium 137 (137-145) mmol/L Potassium 3.2 L (3.4-5.0) mmol/L Chloride 102 (98-107) mmol/L Carbon Dioxide 23 (22-30) mmol/L Anion Gap 12 (4-12) mmol/L BUN 10 (7-17) mg/dL Creatinine 0.53 L (0.7-1.0) mg/dL Estim Creat Clear Calc 94 ml/min Estimated GFR > 60 (59 - ) Glucose 182 H (65-110) mg/dL Calcium 9.2 (8.4-10.2) mg/dL Magnesium 1.8 (1.6-2.3) mg/dL Total Bilirubin 0.9 (0.2-1.3) mg/dL AST 30 (14-36) U/L ALT 28 (6-35) U/L Alkaline Phosphatase 117 (38-126) U/L Troponin I < 0.012 (0.000-0.034) ng/mL NT-Pro-B Natriuret Pep 599 H (19.9-100) pg/mL Total Protein 8.2 (6.3-8.2) g/dL Albumin 4.8 (3.5-5.1) g/dL Lipase 39 (23-300) U/L Urine Color Yellow (Yellow) Urine Appearance Clear (Clear) Urine pH 8.0 (5.0-9.0) Ur Specific [place] 1.013 (1.001-1.035) Urine Protein 2+ H (Negative) mg/dL Urine Glucose (UA) Trace H (Negative) mg/dL Urine Ketones 1+ H (Negative) mg/dL Ur Blood (Man) Negative (Negative) Urine Nitrate Negative (Negative) Urine Bilirubin Negative (Negative) Urine Urobilinogen 0.2 (<2.0) mg/dL Leukocyte Esterase Rfl Negative (Negative) JOSEFINA/UL Urine RBC 3-5 H (0-2) /hpf Urine WBC 0-5 (0-3) /hpf Ur Squamous Epith Cells None seen (Few) /hpf Urine Bacteria None seen /hpf Urine Casts 0-2 <Rylee Aguilar MD - Last Filed: 02/08/25 18:42> Discharge Plan Discharge Clinical Impression: New onset a-fib, Esophagitis, Hepatic lesion, Acute hypokalemia Chest pain Qualifiers: Chest pain type: unspecified Qualified Code(s): R07.9 - Chest pain, unspecified Cholelithiases Qualifiers: Cholelithiasis location: gallbladder Cholecystitis presence: without cholecystitis Biliary obstruction: without biliary obstruction Qualified Code(s): K80.20 - Calculus of gallbladder without cholecystitis without obstruction <Citlalli Grimm PA-C - Last Filed: 02/08/25 18:34> Patient Disposition: Still a Patient <Citlalli Grimm PA-C - Last Filed: 02/08/25 18:34> Condition: Stable <Citlalli Grimm PA-C - Last Filed: 02/08/25 18:34> Patient Language: Dominican <Citlalli Grimm PA-C - Last Filed: 02/08/25 18:34> Prescriptions: No Action atorvastatin 20 mg tablet 20 mg PO DAILY metoprolol succinate 100 mg tablet extended release 24 hr 100 mg PO DAILY clobetasol 0.05 % cream 1 applic TOPICAL DAILY PRN (Reason: Itching) famotidine 20 mg tablet 20 mg PO DAILY amlodipine 10 mg tablet 10 mg PO DAILY zolpidem 5 mg tablet 5 mg PO DAILY ergocalciferol (vitamin D2) 1,250 mcg (50,000 unit) capsule 1,250 mcg PO DAILY fluticasone propionate 50 mcg/actuation spray,suspension 50 mcg INTRANASAL DAILY metformin 500 mg tablet extended release 24 hr 500 mg PO BID levothyroxine 112 mcg tablet 112 mcg PO DAILY Trulicity 0.75 mg/0.5 mL pen injector 0.75 mg SUBCUT WEEKLY hydrochlorothiazide 25 mg Tablet 25 mg PO DAILY albuterol 90 mcg/actuation Aerosol 90 mcg INHALATION DAILY PRN (Reason: SOB) Anoro Ellipta 62.5-25 mcg/actuation Blister With Device 1 inh INHALATION DAILY potassium chloride 20 mEq Tablet Extended Release 20 meq PO DAILY Calcium Adult 1 tab-cap PO DAILY Vitamin B-6 1 tab-cap PO DAILY Vitamin C 1 tab-cap PO DAILY zinc 1 tab-cap PO DAILY <Citlalli Grimm PA-C - Last Filed: 02/08/25 18:34> Follow-up/Referrals: [place],Araceli Munoz NP [Primary Care Provider] - <Citlalli Grimm PA-C - Last Filed: 02/08/25 18:34>
[2025-02-08] MEDS: FAMOTIDINE 20 MG/2 ML VIAL IV PUSH (14:01)
[2025-02-08] MEDS: ONDANSETRON INJ 4 MG/2 ML VIAL IV PUSH (14:01)
--- OUTSIDE RECORDS SUMMARY | 2025-02-08 14:05 | XMS_ITS | CONTINUITY OF CARE DOCUMENT ---
Author Name kaylaswathi kaylaswathi Address Unknown Organization [facility] Address [address] [place] [address] Phone [phone] Care Team Providers [facility] Climate Change Analyst Name Role Phone Elva Gabriel MD Unavailable ALESHA TIMMONS, OLENA Unavailable OLENA EDUARDO MD Unavailable [phone] PROBLEMS Condition Status Date Provider Notes Other symptoms involving cardiovascular system completed - Russell Ding MD Sleep Apnea - not on CPAP completed 05/21 - Patti Christiansen NP Morbid obesity active Russell Ding MD Prediabetes - HbA1c 6.3 active Russell looney MD Hypothyroidism active Russell Ding MD Asthma, acute active Russell Ding MD HYPERTENSION active Russell Ding MD Arthritis active Russell Ding MD Chest discomfort active Russell Ding MD DYSLIPIDEMIA active Russell Ding MD Tobacco use, quit active Russell Ding MD Fatigue active Patti Christiansen NP Sleep apnea active Patti Christiansen NP Leg edema, bilateral active Elva fong MD CARDIAC MURMUR active Elva Gabriel MD Chest pain-type to be determined active Elva Gabriel MD ENCOUNTERS Date Type Provider Location Encounter Diag nosis 5 - 4 In-person encounter Office Visit Elva Gabriel MD [facility] Leg edema, bilateralCARDIAC MURMURChest pain-type to be determined 1 - 8 In-person encounter Office Visit Russell Ding MD [facility] Sleep Apnea - not on CPAPFatigueSleep apnea 0 - 0 In-person encounter Office Visit Russell Ding MD [facility] 9 - 4 In-person encounter Office Visit Russell Ding MD [facility] Other symptoms involving cardiovascular systemDYSLIPIDEMIATobacco use, quit 4 - 4 In-person encounter Office Visit Russell Dign MD [facility] Morbid obesityPrediabetes - HbA1c 6.3HypothyroidismAsthma, acuteHYPERTENSIONArthritisChest discomfortDYSLIPIDEMIA VITAL SIGNS Date Observation Value Provider Body Mass Index (Ratio) 40.19 kg/m2 Isaura Gabriel MD blood pressure, cuff size regular Ella molina [facility] blood pressure, diastolic 62 mm[Hg] Ella molina [facility] blood pressure, systolic 105 mm[Hg] Eleonora reyes [facility] oxygen saturation, oximetry 95 % [facility] /min Gissel [facility] weight E&M 249 [lb_av] [facility] height E&M 66 [in_i] [facility] Body Mass Index (Ratio) 39.54 kg/m2 Loraine Ding MD blood pressure, cuff size large Stella Cedeno blood pressure, diastolic 70 mm[Hg] Stella Cedeno blood pressure, systolic 110 mm[Hg] Rabia Cedeno oxygen saturation, oximetry 97 % Julita Cedeno respiratory rate E&M 16 /min Julita Cedeno pulse rate 59 /min Julita Cedeno weight E&M 245 [lb_av] Julita Cedeno height E&M 66 [in_i] Julita Cedeno Body Mass Index (Ratio) 39.73 kg/m2 Loraine Ding MD blood pressure, resting Yes Luana De La Torre blood pressure, diastolic 81 mm[Hg] Catarina De La [place]re blood pressure, systolic 123 mm[Hg] Jenny Hopkinsdavyfady [place] oxygen saturation, oximetry 94 % Noé De La Torre respiratory rate E&M 18 /min Pam De La Torre pulse rate 67 /min Noé Suarez silviajag weight E&M 246.2 [lb_av] Noé taveras height E&M 66 [in_i] Noé childress blood pressure, diastolic 60 mm[Hg] Catarina De La Torre blood pressure, systolic 110 mm[Hg] Jenny De La Torre pulse rate 70 /min Noé childress oxygen saturation, oximetry 95 % Noé De La Torre respiratory rate E&M 16 /min Pam De La Torre Body Mass Index (Ratio) 40.38 kg/m2 Luana De La Torre weight E&M 250.2 [lb_av] Noé taveras blood pressure, diastolic 81 mm[Hg] Wy kamille Weller blood pressure, systolic 152 mm[Hg] Daisha chandrika Janee pulse rate 68 /min Mirian Weller oxygen saturation, oximetry 94 % Mirian Weller respiratory rate E&M 15 /min Mirian Weller Body Mass Index (Ratio) 40.51 kg/m2 Sandra Weller weight E&M 251 [lb_av] Mirian Weller height E&M 66 [in_i] Mirian Weller ALLERGIES Allergy Name Onset Date Reaction Criticality Status ASA High Criticality active RESULTS Date Observation Value Provider Reference Range Interpretation Location pro brain natriuretic peptide 33.2 pg/mL [employer] 0.0 - 125.0 HISTORY OF MEDICATION USE Medication Status Instructions Dates Provider Indications Com ments levothyroxine 112 mcg tablet active Gissel Ruple metformin 500 mg tablet active Gissel Ruple clobetasol 0.05% cream active Ka yla Ruple hydrochlorothiazide 25 mg tablet active Gissel Ruple famotidine 20 mg tablet active Gissel Ruple atorvastatin 20 mg tablet active Gissel Ruple prednisone 20 mg tablet active Gissel Ruple metoprolol succinate 100 mg capsule,sprinkle,ER 24hr active Gissel Ruple amlodipine 10 mg tablet active Gissel Ruple zolpidem 5 mg tablet active Kayl a Ruple Trulicity 0.75 mg/0.5 mL pen injector active Gissel Ruple amlodipine 5 mg tablet completed ONE TAB. DAILY 201 03/11 - Gissel Ruple VITAMIN D TABLET completed 12308 international units once weekly - Gissel Ruple omeprazole 20 mg tablet,delayed release (DR/EC) completed once daily - Gissel Ruple tramadol 50 mg tablet completed as needed - Gissel Ruple metformin 500 mg tablet completed once daily - Gissel Ruple hydrochlorothiazide 25 mg tablet completed ONE TAB DAILY - Gissel Ruple AMLODIPINE BESYLATE 10 MG ORAL TABLET completed once daily - Patti Christiansen NP lisinopril 20 mg tablet completed ONE TAB. DAILY - Gissel Ruple metoprolol succinate 100 mg tablet extended release 24 hr completed ONE TAB DAILY - Gissel Hannon levothyroxine 125 mcg tablet completed ONE TAB. DAILY - Gissel Hannon SOCIAL HISTORY Date Observation Value Provider smoking status Former smoker Patti Quinones davy BROADCAST PROGRAM DIRECTOR social history reviewed E&M revi ewed - no changes required Patti Christiansen BROADCAST PROGRAM DIRECTOR cigarette use yes Julita Cedeno smoking status Former smoker Russell looney MD social history E&M S moking History: Khushi gibbons is a former smoker. Russell Ding MD social history reviewed E&M revi ewed - no changes required Russell Ding MD cigarette use yes Noé taveras social history reviewed E&M revi ewed - no changes required Russell Ding MD social history E&M Smoking Histo ry: Khushi gibbons is a former smoker. Russell Ding MD cigarette use yes Noé taveras smoking status Former smoker Noé Peguero smoking status Unknown if ever smoked Heriberto Ding MD social history E&M S moking History: Khushi gibbons is a former smoker. Russell Ding MD social history reviewed E&M revi ewed - no changes required Russell Ding MD FAMILY HISTORY Family Member Condition Father Family History of Co ronary Artery Disease: Mother Family History of Co ronary Artery Disease: INSURANCE PROVIDERS Payer name Policy type / Coverage type [place] red republican ID C [employer]PLETE [employer]ARE [id number] (PPO C-SNP) Commercial insurance company [id number] [employer] Medicaid 3 [id number] ADVANCE DIRECTIVES Name Date DISCUSSED - NO DECISION MADE TREATMENT PLAN Date Name Performer Cardiology:NONIVNASE W/U WILL CHECK EHCO AND NUC STRESS MAY NEED PET CT WILL DECIDE AFTER JACKI STRESS NUC Elva Gabriel MD Cardiology:CHECK ECHO Elva Gabriel MD Cardiology: W eight reduction advised. Elva Gabriel MD Cardiology:HAS BEEN ON PREDNISONE ONCE IN A WHILE WHEN HAVING EXASERBATION BUT DOES NOT TAKE ROUTINELYH H er updated medication list for this problem includes: Prednisone 20 Mg Tablet (Prednisone) Elva Gabriel MD Cardiology:LEG SWELL ING COULD BE RELATED OT AMLODIPINE MAY NEED TO D/C THIS AND USE ALTERNATIVE MEDRX FOR THE BP The following medications were removed from the medication list: Hydrochlorothiazide 25 Mg Tablet (Hydrochlorothiazide) ..... One tab daily Metoprolol Succinate 100 Mg Tablet Extended Release 24 Hr (Metoprolol succinate) ..... One tab daily Amlodipine 5 Mg Tablet (Amlodipine) ..... One tab. daily Lisinopril 20 Mg Tablet (Lisinopril) ..... One tab. daily Her updated medication list for this problem includes: Hydrochlorothiazide 25 Mg Tablet (Hydrochlorothiazide) Amlodipine 10 Mg Tablet (Amlodipine) BP today: 105/62 P rior BP: 110/70 (02/04/2017) Elva Gabriel MD Cardiology:STOPPED 20 YRS AGO Sa gabriel Gabriel MD Cardiology:[facility] EX[facility] VENOUS AND ARTERIL INSUFFIENCY M AY HAVE VENOUS REFLUX H REDUCED SODIIM IN DIET R ECOMEMND COMPRESISON STOCKINGS L EG SWELLING COULD BE RELATED OT AMLODIPINE MAY NEED TO D/C THIS AND USE ALTERNATIVE MEDRX FOR THE BP Elva Gabriel MD Cardiology Follow up:Currently o n CPAP. Patti Christiansen NP Cardiology Follow up:On replacem ent therapy. Patti Christiansen NP Cardiology Follow up:Weight redu ction advised. Patti Christiansen NP Cardiology Follow up:Well-contro lled. Patti Christiansen NP Cardiology Follow up:No recurren ce. Patti Christiansen NP Cardiology Follow up :I believe the etiology of the patient's fatigue is chronic and slight hypotension. I have reduced her dosage of amlodipine from 10mg qD to 5mg qD, which may also help with the patient's reported pedal edema. Patti Kuldip FRANK Cardiology Follow up:Currently o n CPAP. Patti Christiansen NP Cardiology Follow up:On replacem ent therapy. Patti Kuldip FRANK Cardiology Follow up:Weight redu ction advised. Patti Kuldip FRANK Cardiology Follow up:Well-contro lled. Patti Kuldip FRANK Cardiology Follow up:No recurren ce. Patti Kuldip FRANK Cardiology Follow up :I believe the etiology of the patient's fatigue is chronic and slight hypotension. I have reduced her dosage of amlodipine from 10mg qD to 5mg qD, which may also help with the patient's reported pedal edema. Patti Christiansen NP Cardiology Follow up Patti Tinjoe medina BROADCAST PROGRAM DIRECTOR Cardiology:Weight loss advised. Russell Ding MD Cardiology:On Metformin. Mikaela Ding MD Cardiology:On replacement therap y. Russell Ding MD Cardiology:No recurrence. Will Ding MD Cardiology:Diet controlled. Loraine Ding MD Cardiology:Blood pre ssure control is satisfactory. Russell Ding MD Cardiology:Will get blood results from your office. She will likely require Statins if lipid panel is abnormal. Russell Ding MD Cardiology:She eduardo nues to have problems with sleeping. Will arrange a home sleep study. If this is positive, she will require titration. Russell Ding MD Cardiology:On replacement therap y. Russell Ding MD Cardiology:Continues on Metformin. Weight loss is advised. Russell Ding MD Cardiology:Blood pre ssure control is satisfactory. Russell Ding MD Cardiology:Symptoms have resolved. The stress test was negative. The patient has been reassured. Russell Ding MD Cardiology:Weight reduction advi sed. Russell Ding MD Cardiology:On replacement therap y. Russell Ding MD Cardiology:Diet cont rolled. Will get her most recent lipid panel from your office. Russell Ding MD Cardiology:On Metformin. Mikaela Ding MD Cardiology:Blood pre ssure today was elevated. This will be rechecked. If the BP remains elevated, her antihypertensive medications will be adjusted. Russell Ding MD Cardiology:She has a hx of sleep apnea, however, she is not on CPAP. Will arrange a home sleep study and will need titration. Russell Ding MD Cardiology:Chest and left arm pain lasting over 12 hours and gradually improving after Tramadol. No further recurrence of this pain. She has risk factors for CAD and a strong family hisotry of CAD. Therefore, we will arrange for her to have an adenosine stress test and echocardiogram. She cerna had neck pains and although she has not experienced any radiation of this pain to the shoulder or arm, cervical radiculopathy is a possibility. Will need further testing done if the stress test shows normal perfusion and the echo shows no wall motion abnormality. Russell Ding MD Date Name Stress Regadenoson Venous Doppler Bilat eral LE - Reflux Arterial Duplex Bi-L ower EX Complete Echo PROBNP, N TERMINAL Sleep Study Home STR - Adenosine Complete Echo Sleep Study Home HISTORY OF PROCEDURES Procedure Date Procedure Name Provider Procedure Notes S tatus EKG Russell Ding MD complet ed SNOMED-CT: 166230451 [id number] Current Medications Documented Russell Ding MD completed SNOMED-CT: 73174970 Physical Exam, Performed: Pulse Exam of Foot Russell Ding MD completed EKG Russell Ding MD complet ed SNOMED-CT: 546881320 827140 Current Medications Documented Russell Ding MD completed SNOMED-CT: 06237989 Physical Exam, Performed: Pulse Exam of Foot Russell Ding MD completed EKG Russell Ding MD complet ed SNOMED-CT: 896047868 178994 Current Medications Documented Russell Ding MD completed Stress EKG Manuel Cardona MD completed Regadenoson, 4 units Russell Ding MD completed Cardiolite, 2 units Russell Ding MD completed SPECT Images Russell Ding MD compl eted SNOMED-CT: 119804921 Smoking Cessation Counseling Russell Ding MD completed SNOMED-CT: 32583120 Physical Exam, Performed: Pulse Exam of Foot Russell Ding MD completed EKG Russell Ding MD complet ed SNOMED-CT: [id number] 081057 Current Medications Documented Russell Ding MD completed
--- OUTSIDE RECORDS SUMMARY | 2025-02-08 14:06 | XMS_ITS | Data Portability ---
Author Organization [place] - [facility] [employer], Main Office Address [address] [place] [address] Assessment No assessment recorded. Plan of Treatment Reminders Order Date Submit Date Provider Last Modified By Organization Details Last Modified Time Details Appointments Follow Up 15 2024 03:45P Seu reyes MD Not available Not available Not available Lab lipid panel, serum 2024 025 [facility] (Lab), [address] [place], [address], 12/14/2024 14:21:39 CBC w/ auto diff 2024 025 [facility] (Lab), [address] [place], [address], 12/14/2024 14:04:53 TSH, serum or plasma 2024 025 [facility] (Lab), [address] [place], [address], 12/14/2024 14:45:28 CMP, serum or plasma 2024 025 [facility] (Lab), [address] [place], [address], 12/14/2024 14:21:45 vitamin D, 25-hydrox y, total, serum [address] (Lab), [address] [place], [address], 12/22/2024 09:39:56 glycohemo globin, total, blood 2024 025 [facility] (Lab), [address] [place], [address], 12/14/2024 14:40:38 microalbu min, urine 2024 025 [facility] (Lab), [address] [place], [address], 12/14/2024 15:21:18 vitamin B12 + folate, serum or blood [address] (Lab), [address] [place], [address], 12/22/2024 09:39:56 HbA1c (hemoglob in A1c), blood 2023 024 [email or web address] Not available 01/18/2024 21:42:43 BMP, serum or plasma 2023 024 FATOUMATA Not available 01/18/2024 20:09:55 microalbu min, urine 2023 024 FATOUMATA Not available 01/18/2024 21:23:14 CBC w/ auto diff 2023 024 [email or web address] Not available 01/18/2024 19:33:48 lipid panel, serum 2023 024 FATOUMATA Not available 01/18/2024 20:10:00 hepatic function panel, serum 2023 024 FATOUMATA Not available 01/18/2024 20:10:11 vitamin D, 25-hydrox y, total, serum 2023 024 [email or web address] Not available 01/25/2024 08:28:22 TSH, serum or plasma 2023 024 FATOUMATA Not available 01/18/2024 20:27:35 T4, free, serum 2023 024 FATOUMATA Not available 01/18/2024 20:15:15 Referral cardiolog ist referral - Please call patient to schedule an appointme nt. Thank you. 2024 025 FATOUMATA Gabriel MD, [address], [address], [place], [address], 12/20/2024 16:19:57 pulmonolo gist referral - Please call patient to schedule an appointme nt. Thank you. 2024 025 [email or web address] Nixon Medina MD, [address], [place], [address], 12/14/2024 17:17:44 podiatris t referral - Please call patient to schedule an appointme nt. Thank you. 2024 025 FATOUMATA Gentile DPM, [address], [place], [address], 12/12/2024 15:51:24 podiatris t referral - Please call patient to schedule an appointme nt. Thank you. 2023 024 [email or web address] Diego Gentile DPM, [address], [place], [address], 02/15/2024 09:25:40 diabetic ophthalmo logy referral - Plesase call patient to schedule an appointme nt. Thank you. 2023 024 [email or web address] [facility], [address] [facility], [address], [place], [address], 02/15/2024 09:36:33 Procedures colonosco py procedure (PROC) - *Please call pt to schedule* 2023 024 dennis rangel MD, [address], [address], [place], [address], 06/13/2024 12:01:19 Surgeries None recorded. Imaging MAMMO, screening , digital, bilateral - Please call patient to schedule. To be performed on or around 5 2024 025 [facility]), [address] [place], [address], 12/12/2024 15:45:24 bone density - Please call patient to schedule. 2024 025 [email or web address] [facility] ([facility]), [address] [place], [address], 01/11/2025 17:53:35 Medication Orders Medrol (Gilbert) 4 mg tablets in a dose pack 2024 025 [facility]/Pharmacy #2510, [address] [place], [address], 12/12/2024 15:19:59 zolpidem [address] [facility] [address] [place], [address], 05/30/2024 15:00:06 atorvasta tin 20 mg tablet 2023 024 [facility]/Pharmacy #2510, [address] [place], [address], 05/30/2024 15:00:02 Stiolto Respimat 2.5 mcg-2.5 mcg/actua tion solution for inhalatio n 2023 024 [email or web address] [facility]/Pharmacy #2510, [address] [place], [address], 05/30/2024 16:06:26 famotidin e 20 mg tablet 2023 024 [facility]/Pharmacy #2510, [address] [place], [address], 05/30/2024 14:59:57 cephalexi n 500 mg capsule 2023 024 [facility]/Pharmacy #2510, [address] [place], [address], 12/12/2024 14:45:13 Trulicity 0.75 mg/0.5 mL subcutane ous pen injector [email or web address] [address] [place], [address], 01/11/2025 14:36:02 amlodipin e 10 [address] [facility] [address] [place], [address], 05/30/2024 15:00:01 hydrochlo rothiazid e 25 mg tablet [address] [facility] [address] [place] [address], [address], 05/30/2024 15:00:00 metoprolo l succinate ER 100 mg tablet,ex tended release [address] [facility] [address] [place] [address], [address], 05/30/2024 14:59:59 levothyro xine 112 mcg tablet [address] [facility] [address] [place] [address], [address], 05/30/2024 14:59:58 zolpidem 5 mg tablet [address] [facility] [address] [place] [address], [address], 01/18/2024 15:18:13 metformin ER 500 mg tablet,ex tended release [address] [facility] [address] [place] [address], [address], 01/18/2024 15:18:00 famotidin e 20 mg tablet [address] [facility] [address] [place] [address], [address], 01/18/2024 15:18:03 metoprolo l succinate ER 100 mg tablet,ex tended release [address] [facility] [address] [place] [address], [address], 01/18/2024 15:18:01 amlodipin e 10 mg tablet [address] [facility] [address] [place], [address], 01/18/2024 15:17:59 hydrochlo rothiazid e 25 mg tablet [address] [facility] [address] [place] [address], [address], 01/18/2024 15:17:59 prednison e 20 mg tablet 2023 0[email or web address] [address] [place] [address], [address], 12/12/2024 14:45:30 ergocalci ferol (vitamin D2) 1,250 mcg (50,000 unit) capsule [address] [address] [place], [address], 01/18/2024 15:18:06 Trulicity 0.75 mg/0.5 mL subcutane ous pen injector [address] [facility] [address] [place], [address], 01/18/2024 15:18:00 levothyro xine 112 mcg tablet [address] [facility] [address] [place], [address], 01/18/2024 15:18:05 Patient TargetsNo targets recorded. Patient Instructions Encounter Date Encounter Id Patient Instructions Last Modified By Organization Details Last Modified Time 01/18/2024 [id number] dementia rating scale-2* [email or web address] Not available 01/18/2024 16:12:26 multi-dimensiona l health assessment questionnaire* [email or web address] Not available 01/18/2024 16:12:31 Personalized [facility] Plan and Screening Recommendations Advance Directives - Do you have one? Advance Directives - Do we have your advance directive on file in your health record? Primary Prevention/Interven tion (prevents or decreases the chance of common diseases from occurring) Smoking Risk: Alcohol Misuse Screening: Weight: Physical activity: Nutrition: Fall Risk (screened today): Vaccines Pneumococcal: Influenza: Your next one in the fall of this year Chronic Disease Risks Stroke: Active diagnosis, Continue current treatment plan Heart Attack: Active diagnosis, Continue current treatment plan Clogging of the Arteries: Active diagnosis, Continue current treatment plan Diabetes: Active diagnosis, Continue current treatment plan Secondary Prevention/Interven tion (detects treatable diseases before they may cause symptoms, disability, or ) Breast Cancer Screening with mammogram: Cervical/Uterine/Ov michael Cancer Screening: Osteoporosis Screening: Date Screening Last Performed: Colon Cancer Screening: Date Screening Last Performed: Eye Disease Screening: Ordered Recommended today Recommended today, but you have declined No Eye exam necessary Your next exam in: Dementia Risk: Depression Screening: Active diagnosis, Continue current treatment plan [email or web address] Not available 01/24/2024 11:18:41 12/12/2024 [id number] diabetic eye exam* [email or web address] Not availa ble 12/12/2024 17:15:27 Reason for Referral Copy Machine Operator Referral for Diab etes mellitus Please call patient to schedule an appointment. Thank you. Referring Physician: Mirian Pagan, Family Medicine, Encounter Date: 01/18/2024 Diabetic Ophthalmology Refer ral for Diabetes mellitus Plesase call patient to schedule an appointment. Thank you. Referring Physician: Mirian Pagan Family Medicine, Encounter Date: 01/18/2024 Copy Machine Operator Referral for Type 2 diabetes mellitus without complication Please call patient to schedule an appointment. Thank you. Referring Physician: Gail Moreland, Internal Medicine, Encounter Date: 12/12/2024 Edge Grinder Machine Referral for C hronic obstructive pulmonary disease Please call patient to schedule an appointment. Thank you. Referring Physician: Gail Moreland, Internal Medicine, Encounter Date: 12/12/2024 Electroplating Laborer Referral for Pe ripheral vascular disease Please call patient to schedule an appointment. Thank you. Referring Physician: Gail Moreland, Internal Medicine, Encounter Date: 12/12/2024 Results Created Date Observation Date Name Description Value Unit Range Abnormal Flag Note LastModifiedBy Organization Detail LastModifiedTime 01/18/20 24 01/18/2024 CBC/C OMPLE TE BLD COUNT W/DIF F white blood cells 8.2 x10'3 /uL 4.2-10 .8 Not Available [facility] (Lab) [address] [place], [address], 01/18/2024 19:33:48 01/18/20 24 01/18/2024 CBC/C OMPLE TE BLD COUNT W/DIF F red blood cells 4.42 x10'6 /uL 3.80-5 .20 Not Available [facility] (Lab) [address] [place], [address], 01/18/2024 19:33:48 01/18/20 24 01/18/2024 CBC/C OMPLE TE BLD COUNT W/DIF F hemoglobin 14.3 g/dL 12.0-1 5.6 Not Available [facility] (Lab) [address] [place], [address], 01/18/2024 19:33:48 01/18/20 24 01/18/2024 CBC/C OMPLE TE BLD COUNT W/DIF F hematocrit 43.1 % 35.7-4 5.7 Not Available [facility] (Lab) [address] [place], [address], 01/18/2024 19:33:48 01/18/20 24 01/18/2024 CBC/C OMPLE TE BLD COUNT W/DIF F mean red cell volume 97.5 fL 82.0-9 9.0 Not Available [facility] (Lab) [address] [facility] [place], [address], 01/18/2024 19:33:48 01/18/20 24 01/18/2024 CBC/C OMPLE TE BLD COUNT W/DIF F mean red cell hemoglobin 32.4 pg 27.0-3 3.0 Not Available [facility] (Lab) [address] [facility] [place], [address], 01/18/2024 19:33:48 01/18/20 24 01/18/2024 CBC/C OMPLE TE BLD COUNT W/DIF F mean RBC HGB concentratio n 33.2 g/dL 31.0-3 6.0 Not Available [facility] (Lab) [address] [place], [address], 01/18/2024 19:33:48 01/18/20 24 01/18/2024 CBC/C OMPLE TE BLD COUNT W/DIF F red cell distribution width 13.6 % 11.8-1 5.5 Not Available [facility] (Lab) [address] [place], [address], 01/18/2024 19:33:48 01/18/20 24 01/18/2024 CBC/C OMPLE TE BLD COUNT W/DIF F platelets 313 x10'3 /uL 150-40 0 Not Available [facility] (Lab) [address] [place], [address], 01/18/2024 19:33:48 01/18/20 24 01/18/2024 CBC/C OMPLE TE BLD COUNT W/DIF F mean platelet volume 11.5 fL 9.0-12 .4 Not Available [facility] (Lab) [address] [place], [address], 01/18/2024 19:33:48 01/18/20 24 01/18/2024 CBC/C OMPLE TE BLD COUNT W/DIF F neutrophils 64.5 % 39.0-7 2.0 Not Available [facility] (Lab) [address] [place], [address], 01/18/2024 19:33:48 01/18/20 24 01/18/2024 CBC/C OMPLE TE BLD COUNT W/DIF F lymphocytes 25.6 % 16.0-4 7.0 Not Available [facility] (Lab) [address] [place], [address], 01/18/2024 19:33:48 01/18/20 24 01/18/2024 CBC/C OMPLE TE BLD COUNT W/DIF F monocytes 6.1 % 5.0-12 .0 Not Available [facility] (Lab) [address] [place], [address], 01/18/2024 19:33:48 01/18/20 24 01/18/2024 CBC/C OMPLE TE BLD COUNT W/DIF F eosinophils 2.3 % 1.0-7. 0 Not Available [facility] (Lab) [address] [place], [address], 01/18/2024 19:33:48 01/18/20 24 01/18/2024 CBC/C OMPLE TE BLD COUNT W/DIF F basophils 1.0 % 0.0-2. 0 Not Available [facility] (Lab) [address] [place], [address], 01/18/2024 19:33:48 01/18/20 24 01/18/2024 CBC/C OMPLE TE BLD COUNT W/DIF F immature granulocytes 0.5 % 0.00-0 .50 Not Available [facility] (Lab) [address] [place], [address], 01/18/2024 19:33:48 01/18/20 24 01/18/2024 CBC/C OMPLE TE BLD COUNT W/DIF F neutrophils, absolute count 5.32 x10'3 /uL 1.5-8. 0 Not Available [facility] (Lab) [address] [place], [address], 01/18/2024 19:33:48 01/18/20 24 01/18/2024 CBC/C OMPLE TE BLD COUNT W/DIF F lymphocytes, absolute count 2.11 x10'3 /uL 1.07-3 .43 Not Available [facility] (Lab) [address] [place], [address], 01/18/2024 19:33:48 01/18/20 24 01/18/2024 CBC/C OMPLE TE BLD COUNT W/DIF F monocytes, absolute count 0.50 x10'3 /uL 0.29-0 .99 Not Available [facility] (Lab) [address] [place], [address], 01/18/2024 19:33:48 01/18/20 24 01/18/2024 CBC/C OMPLE TE BLD COUNT W/DIF F eosinophils, absolute count 0.19 x10'3 /uL 0.02-0 .53 Not Available [facility] (Lab) [address] [place], [address], 01/18/2024 19:33:48 01/18/20 24 01/18/2024 CBC/C OMPLE TE BLD COUNT W/DIF F basophils, absolute count 0.08 x10'3 /uL 0.01-0 .08 Not Available [facility] (Lab) [address] [place], [address], 01/18/2024 19:33:48 01/18/20 24 01/18/2024 CBC/C OMPLE TE BLD COUNT W/DIF F immature granulocytes ,absolute 0.04 x10'3 /uL 0.00-0 .05 Not Available [facility] (Lab) [address] [place], [address], 01/18/2024 19:33:48 01/18/20 24 01/18/2024 CBC/C OMPLE TE BLD COUNT W/DIF F nucleated red blood cells 0.0 % -0 Not Available [facility] (Lab) [address] [place], [address], 01/18/2024 19:33:48 01/18/20 24 01/18/2024 CBC/C OMPLE TE BLD COUNT W/DIF F NRBC# 0.00 x10'3 /uL Not Available [facility] (Lab) [address] [place], [address], 01/18/2024 19:33:48 01/18/20 24 01/18/2024 BASIC METAB OLIC PANEL sodium 137 mmol/ L 137-14 5 Not Available [facility] (Lab) [address] [place], [address], 01/18/2024 20:09:55 01/18/20 24 01/18/2024 BASIC METAB OLIC PANEL potassium 3.8 mmol/ L 3.5-5. 1 Not Available [facility] (Lab) [address] [place], [address], 01/18/2024 20:09:55 01/18/20 24 01/18/2024 BASIC METAB OLIC PANEL chloride 98 mmol/ L 98-107 Not Available [facility] (Lab) [address] [place], [address], 01/18/2024 20:09:55 01/18/20 24 01/18/2024 BASIC METAB OLIC PANEL carbon dioxide 31 mmol/ L 22-30 high Not Available [facility] (Lab) [address] [place], [address], 01/18/2024 20:09:55 01/18/20 24 01/18/2024 BASIC METAB OLIC PANEL anion gap 11.8 mmol/ L 14-22 low Not Available [facility] (Lab) [address] [place], [address], 01/18/2024 20:09:55 01/18/20 24 01/18/2024 BASIC METAB OLIC PANEL glucose 96 mg/dL 70-99 Not Available [facility] (Lab) [address] [place], [address], 01/18/2024 20:09:55 01/18/20 24 01/18/2024 BASIC METAB OLIC PANEL BUN 15 mg/dL 8-19 Not Available [facility] (Lab) [address] [place], [address], 01/18/2024 20:09:55 01/18/20 24 01/18/2024 BASIC METAB OLIC PANEL creatinine 0.80 mg/dL 0.66-1 .25 Not Available [facility] (Lab) [address] [place], [address], 01/18/2024 20:09:55 01/18/20 24 01/18/2024 BASIC METAB OLIC PANEL GFR >60 Refer ence Range : [place] ge GFR Healt hy Adult : >60 mL/mi n/1.7 3 m2 Chron ic Kidne y Disea se: 15-60 mL/mi n/1.7 3 m2 Kidne y Failu re: <15/m L/min /1.73 m2 www.n iddk. nih.g ov The MDRD study equat ion has not been valid ated in child roney <18 years of age; pregn ant women ; the elder ly >85 years of age; or in some racia l or ethni c subgr oups, such as Hispa nics. Outsi de the valid ated danuta eters , estim ated GFR is less accur ate, requi ring clini sweta judgm ent on a case- by-ca se basis . Clini sweta inter preta tion for other races and ages must be made by the clini dean. The MDRD study equat ion has not been valid ated for the evalu ation of serum creat inine relat ed to nutri orestes l statu s or medic ation usage . For perso ns <18 years of age, a pedia tric GFR calcu lator is avail able on the [facility] websi te: https ://ww w.kid simeon.o rg/pr ofess ional s/kdo qi/gf r_cal culat or Not Available [facility] (Lab) [address] [place], [address], 01/18/2024 20:09:55 01/18/20 24 01/18/2024 BASIC METAB OLIC PANEL calcium 9.6 mg/dL 8.4-10 .2 Not Available [facility] (Lab) [address] [place], [address], 01/18/2024 20:09:55 01/18/20 24 01/18/2024 LIPID PANEL cholesterol 243 mg/dL 140-19 9 high NIH DAYANARA NSUS RECOM MENDA TION FOR BENIGNO STERO L: ADULT CHILD LOW RISK: <200 <170 BORDE RLINE : <200- 239 ----- HIGH RISK: >240 >200 Not Available [facility] (Lab) [address] [place], [address], 01/18/2024 20:10:00 01/18/20 24 01/18/2024 LIPID PANEL triglyceride s 156 mg/dL 0-150 high NIH DAYANARA NSUS REPOR T RECOM MENDA TION FOR TRIGL YCERI SHELLI: ADULT CHILD LOW RISK: <150 ----- BODER LINE: 150-1 99 ----- HIGH RISK: >200 ----- Not Available [facility] (Lab) [address] [place], [address], 01/18/2024 20:10:00 01/18/20 24 01/18/2024 LIPID PANEL HDL cholesterol 64 mg/dL 40- Not Available [facility] (Lab) [address] [place], [address], 01/18/2024 20:10:00 01/18/20 24 01/18/2024 LIPID PANEL LDL cholesterol, calculated 148 mg/dL 0-130 high NIH DAYANARA NSUS REPOR T RECOM MENDA TIONS FOR LDL: ADULT CHILD LOW RISK <130 <110 (OPTI MAL LDL) <100 ----- BORDE RLINE : 130-1 59 ----- HIGH RISK: >160 >130 A TRIGL YCERI DE RESUL T >400 INVAL IDATE S THE CALCU LATIO N FOR LDL FRACT IONAT ION - THE LDL RESUL T WILL NOT BE REPOR JOSE. Not Available [facility] (Lab) [address] [place], [address], 01/18/2024 20:10:00 01/18/20 24 01/18/2024 HEPAT IC/LI MATT PANEL alkaline phosphatase 92 U/L 38-126 Not Available [facility] (Lab) [address] [place], [address], 01/18/2024 20:10:11 01/18/20 24 01/18/2024 HEPAT IC/LI MATT PANEL alanine aminotransfe rase 21 U/L 0-35 Not Available [facility] (Lab) [address] [place], [address], 01/18/2024 20:10:11 01/18/20 24 01/18/2024 HEPAT IC/LI MATT PANEL aspartate aminotransfe rase 24 U/L 15-37 Not Available [facility] (Lab) [address] [place], [address], 01/18/2024 20:10:11 01/18/20 24 01/18/2024 HEPAT IC/LI MATT PANEL bilirubin, total 0.70 mg/dL 0.20-1 .30 Not Available [facility] (Lab) [address] [place], [address], 01/18/2024 20:10:11 01/18/20 24 01/18/2024 HEPAT IC/LI MATT PANEL bilirubin, conjugated (direct) 0.00 mg/dL 0.00-0 .30 Not Available [facility] (Lab) [address] [place], [address], 01/18/2024 20:10:11 01/18/20 24 01/18/2024 HEPAT IC/LI MATT PANEL biliurubin,u ncong. (indirect) 0.40 mg/dL 0.00-1 .1 Not Available [facility] (Lab) [address] [place], [address], 01/18/2024 20:10:11 01/18/20 24 01/18/2024 HEPAT IC/LI MATT PANEL total protein 7.5 g/dL 6.3-8. 2 Not Available [facility] (Lab) [address] [place], [address], 01/18/2024 20:10:11 01/18/20 24 01/18/2024 HEPAT IC/LI MATT PANEL albumin 4.5 g/dL 3.0-4. 4 high Not Available [facility] (Lab) [address] [place], [address], 01/18/2024 20:10:11 01/18/20 24 01/18/2024 HEPAT IC/LI MATT PANEL globulin 3.0 g/dL 2.6-4. 2 Not Available [facility] (Lab) [address] [place], [address], 01/18/2024 20:10:11 01/18/20 24 01/18/2024 HEPAT IC/LI MATT PANEL A/G ratio 1.5 ratio 1.0-2. 0 Not Available [facility] (Lab) [address] [place], [address], 01/18/2024 20:10:11 01/18/20 24 01/18/2024 T4 FREE free T4 1.44 NG/dL 0.78-2 .19 Not Available [facility] (Lab) [address] [place], [address], 01/18/2024 20:15:15 01/18/20 24 01/18/2024 TSH thyroid-stim ulating hormone 0.890 uIU/m L 0.465- 4.680 Not Available [facility] (Lab) [address] [place], [address], 01/18/2024 20:27:35 01/18/20 24 01/18/2024 HEMOG LOBIN A1C HA1C 5.9 % 4.0-6. 0 Diabe warner Scree antionette Crite sita: <5.7% Consi stent with absen ce of diabe warner 5.7-6 .4% Consi stent with incre ased risk for diabe warner (pred iabet es) >OR=6 .5% Consi stent with diabe warner REFER ENCE: Diabe warner Care 2016, 39(Moreland ppl.1 ):s13 -s22 Not Available [facility] (Lab) [address] [place], [address], 01/18/2024 20:29:20 01/18/20 24 01/18/2024 MICRO ALBUM IN RANDO M URINE microalbumin , urine 9.5 mg/L 0.0-16 .6 Not Available [facility] (Lab) [address] [place], [address], 01/18/2024 21:23:14 01/18/20 24 01/18/2024 VITAM IN D 25-HY DROXY [id number] 29.0 NG/mL 30-100 low Vitam in D Statu s: Defic ient: <20 ng/mL Insuf ficie nt: 20-29 ng/mL Suffi cient : 30-10 0 ng/mL Not Available [facility] (Lab) [address] [place], [address], 01/18/2024 21:25:20 12/15/19 25 12/14/2024 CBC/C OMPLE TE BLD COUNT W/DIF F white blood cells 9.0 x10'3 /uL 4.2-10 .8 Not Available [facility] (Lab) [address] [place], [address], 12/14/2024 14:04:53 12/15/19 25 12/14/2024 CBC/C OMPLE TE BLD COUNT W/DIF F red blood cells 4.39 x10'6 /uL 3.80-5 .20 Not Available [facility] (Lab) [address] [place], [address], 12/14/2024 14:04:53 12/15/19 25 12/14/2024 CBC/C OMPLE TE BLD COUNT W/DIF F hemoglobin 14.0 g/dL 12.0-1 5.6 Not Available [facility] (Lab) [address] [place], [address], 12/14/2024 14:04:53 12/15/19 25 12/14/2024 CBC/C OMPLE TE BLD COUNT W/DIF F hematocrit 42.9 % 35.7-4 5.7 Not Available [facility] (Lab) [address] [place], [address], 12/14/2024 14:04:53 12/15/19 25 12/14/2024 CBC/C OMPLE TE BLD COUNT W/DIF F mean red cell volume 97.7 fL 82.0-9 9.0 Not Available [facility] (Lab) [address] [place], [address], 12/14/2024 14:04:53 12/15/19 25 12/14/2024 CBC/C OMPLE TE BLD COUNT W/DIF F mean red cell hemoglobin 31.9 pg 27.0-3 3.0 Not Available [facility] (Lab) [address] [place], [address], 12/14/2024 14:04:53 12/15/19 25 12/14/2024 CBC/C OMPLE TE BLD COUNT W/DIF F mean RBC HGB concentratio n 32.6 g/dL 31.0-3 6.0 Not Available [facility] (Lab) [address] [place], [address], 12/14/2024 14:04:53 12/15/19 25 12/14/2024 CBC/C OMPLE TE BLD COUNT W/DIF F red cell distribution width 14.0 % 11.8-1 5.5 Not Available [facility] (Lab) [address] [place], [address], 12/14/2024 14:04:53 12/15/19 25 12/14/2024 CBC/C OMPLE TE BLD COUNT W/DIF F platelets 335 x10'3 /uL 150-40 0 Not Available [facility] (Lab) [address] [place], [address], 12/14/2024 14:04:53 12/15/19 25 12/14/2024 CBC/C OMPLE TE BLD COUNT W/DIF F mean platelet volume 11.5 fL 9.0-12 .4 Not Available [facility] (Lab) [address] [place], [address], 12/14/2024 14:04:53 12/15/19 25 12/14/2024 CBC/C OMPLE TE BLD COUNT W/DIF F neutrophils 60.3 % 39.0-7 2.0 Not Available [facility] (Lab) [address] [place], [address], 12/14/2024 14:04:53 12/15/19 25 12/14/2024 CBC/C OMPLE TE BLD COUNT W/DIF F lymphocytes 29.4 % 16.0-4 7.0 Not Available [facility] (Lab) [address] [place], [address], 12/14/2024 14:04:53 12/15/19 25 12/14/2024 CBC/C OMPLE TE BLD COUNT W/DIF F monocytes 6.8 % 5.0-12 .0 Not Available [facility] (Lab) [address] [place], [address], 12/14/2024 14:04:53 12/15/19 25 12/14/2024 CBC/C OMPLE TE BLD COUNT W/DIF F eosinophils 2.3 % 1.0-7. 0 Not Available [facility] (Lab) [address] [place], [address], 12/14/2024 14:04:53 12/15/19 25 12/14/2024 CBC/C OMPLE TE BLD COUNT W/DIF F basophils 0.8 % 0.0-2. 0 Not Available [facility] (Lab) [address] [place], [address], 12/14/2024 14:04:53 12/15/19 25 12/14/2024 CBC/C OMPLE TE BLD COUNT W/DIF F immature granulocytes 0.4 % 0.00-0 .50 Not Available [facility] (Lab) [address] [place], [address], 12/14/2024 14:04:53 12/15/19 25 12/14/2024 CBC/C OMPLE TE BLD COUNT W/DIF F neutrophils, absolute count 5.43 x10'3 /uL 1.5-8. 0 Not Available [facility] [facility] ([facility] [address] [place], [address], 12/14/2024 14:04:53 12/15/19 25 12/14/2024 CBC/C OMPLE TE BLD COUNT W/DIF F lymphocytes, absolute count 2.65 x10'3 /uL 1.07-3 .43 Not Available [facility] (Lab) [address] [place], [address], 12/14/2024 14:04:53 12/15/19 25 12/14/2024 CBC/C OMPLE TE BLD COUNT W/DIF F monocytes, absolute count 0.61 x10'3 /uL 0.29-0 .99 Not Available [facility] (Lab) [address] [place], [address], 12/14/2024 14:04:53 12/15/19 25 12/14/2024 CBC/C OMPLE TE BLD COUNT W/DIF F eosinophils, absolute count 0.21 x10'3 /uL 0.02-0 .53 Not Available [facility] (Lab) [address] [place], [address], 12/14/2024 14:04:53 12/15/19 25 12/14/2024 CBC/C OMPLE TE BLD COUNT W/DIF F basophils, absolute count 0.07 x10'3 /uL 0.01-0 .08 Not Available [facility] (Lab) [address] [place], [address], 12/14/2024 14:04:53 12/15/19 25 12/14/2024 CBC/C OMPLE TE BLD COUNT W/DIF F immature granulocytes ,absolute 0.04 x10'3 /uL 0.00-0 .05 Not Available [facility] (Lab) [address] [place], [address], 12/14/2024 14:04:53 12/15/19 25 12/14/2024 CBC/C OMPLE TE BLD COUNT W/DIF F nucleated red blood cells 0.0 % -0 Not Available [facility] (Lab) [address] [place], [address], 12/14/2024 14:04:53 12/15/19 25 12/14/2024 CBC/C OMPLE TE BLD COUNT W/DIF F NRBC# 0.00 x10'3 /uL Not Available [facility] (Lab) [address] [place], [address], 12/14/2024 14:04:53 12/15/19 25 12/14/2024 LIPID PANEL cholesterol 249 mg/dL 140-19 9 high NIH DAYANARA NSUS RECOM MENDA TION FOR BENIGNO STERO L: ADULT CHILD LOW RISK: <200 <170 BORDE RLINE : <200- 239 ----- HIGH RISK: >240 >200 Not Available [facility] (Lab) [address] [place], [address], 12/14/2024 14:21:39 12/15/19 25 12/14/2024 LIPID PANEL triglyceride s 132 mg/dL 0-150 NIH DAYANARA NSUS REPOR T RECOM MENDA TION FOR TRIGL YCERI SHELLI: ADULT CHILD LOW RISK: <150 ----- BODER LINE: 150-1 99 ----- HIGH RISK: >200 ----- Not Available [facility] (Lab) [address] [place], [address], 12/14/2024 14:21:39 12/15/19 25 12/14/2024 LIPID PANEL HDL cholesterol 63 mg/dL 40- Not Available [facility] (Lab) [address] [place], [address], 12/14/2024 14:21:39 12/15/19 25 12/14/2024 LIPID PANEL LDL cholesterol, calculated 160 mg/dL 0-130 high NIH DAYANARA NSUS REPOR T RECOM MENDA TIONS FOR LDL: ADULT CHILD LOW RISK <130 <110 (OPTI MAL LDL) <100 ----- BORDE RLINE : 130-1 59 ----- HIGH RISK: >160 >130 A TRIGL YCERI DE RESUL T >400 INVAL IDATE S THE CALCU LATIO N FOR LDL FRACT IONAT ION - THE LDL RESUL T WILL NOT BE REPOR JOSE. Not Available [facility] (Lab) [address] [place], [address], 12/14/2024 14:21:39 12/15/19 25 12/14/2024 COMPR EHENS PETRA METAB OLIC PANEL sodium 139 mmol/ L 137-14 5 Not Available [facility] (Lab) [address] [place], [address], 12/14/2024 14:21:45 12/15/19 25 12/14/2024 COMPR EHENS PETRA METAB OLIC PANEL potassium 4.0 mmol/ L 3.5-5. 1 Not Available [facility] (Lab) [address] [place], [address], 12/14/2024 14:21:45 12/15/19 25 12/14/2024 COMPR EHENS PETRA METAB OLIC PANEL chloride 105 mmol/ L 98-107 Not Available [facility] (Lab) [address] [place], [address], 12/14/2024 14:21:45 12/15/19 25 12/14/2024 COMPR EHENS PETRA METAB OLIC PANEL carbon dioxide 30 mmol/ L 22-30 Not Available [facility] (Lab) [address] [place], [address], 12/14/2024 14:21:45 12/15/19 25 12/14/2024 COMPR EHENS PETRA METAB OLIC PANEL anion gap 8.0 mmol/ L 14-22 low Not Available [facility] (Lab) [address] [place], [address], 12/14/2024 14:21:45 12/15/19 25 12/14/2024 COMPR EHENS PETRA METAB OLIC PANEL glucose 134 mg/dL 70-99 high Not Available [facility] (Lab) [address] [place], [address], 12/14/2024 14:21:45 12/15/19 25 12/14/2024 COMPR EHENS PETRA METAB OLIC PANEL BUN 18 mg/dL 8-19 Not Available [facility] (Lab) [address] [facility] [place], [address], 12/14/2024 14:21:45 12/15/19 25 12/14/2024 COMPR EHENS PETRA METAB OLIC PANEL creatinine 0.74 mg/dL 0.66-1 .25 Not Available [facility] (Lab) [address] [facility] [place], [address], 12/14/2024 14:21:45 12/15/19 25 12/14/2024 COMPR EHENS PETRA METAB OLIC PANEL GFR >60 Refer ence Range : [place] ge GFR Healt hy Adult : >60 mL/mi n/1.7 3 m2 Chron ic Kidne y Disea se: 15-60 mL/mi n/1.7 3 m2 Kidne y Failu re: <15/m L/min /1.73 m2 www.n iddk. nih.g ov The MDRD study equat ion has not been valid ated in child roney <18 years of age; pregn ant women ; the elder ly >85 years of age; or in some racia l or ethni c subgr oups, such as [facility] nics. Outsi de the valid ated danuta eters , estim ated GFR is less accur ate, requi ring clini sweta judgm ent on a case- by-ca se basis . Clini sweta inter preta tion for other races and ages must be made by the clini dean. The MDRD study equat ion has not been valid ated for the evalu ation of serum creat inine relat ed to nutri orestes l statu s or medic ation usage . For perso ns <18 years of age, a pedia tric GFR calcu lator is avail able on the [facility] websi te: https :[email or web address] [place].elliott hendrix.o rg/pr ofess ional s/kdo qi/gf r_cal culat or Not Available [facility] (Lab) [address] [place], [address], 12/14/2024 14:21:45 12/15/19 25 12/14/2024 COMPR EHENS PETRA METAB OLIC PANEL alkaline phosphatase 119 U/L 38-126 Not Available [facility] (Lab) [address] [facility] [place], [address], 12/14/2024 14:21:45 12/15/19 25 12/14/2024 COMPR EHENS PETRA METAB OLIC PANEL alanine aminotransfe rase 26 U/L 0-35 Not Available [facility] (Lab) [address] [place], [address], 12/14/2024 14:21:45 12/15/19 25 12/14/2024 COMPR EHENS PETRA METAB OLIC PANEL aspartate aminotransfe rase 25 U/L 15-37 Not Available [facility] (Lab) [address] [place], [address], 12/14/2024 14:21:45 12/15/19 25 12/14/2024 COMPR EHENS PETRA METAB OLIC PANEL bilirubin, total 0.50 mg/dL 0.20-1 .30 Not Available [facility] (Lab) [address] [place], [address], 12/14/2024 14:21:45 12/15/19 25 12/14/2024 COMPR EHENS PETRA METAB OLIC PANEL calcium 9.5 mg/dL 8.4-10 .2 Not Available [facility] (Lab) [address] [place], [address], 12/14/2024 14:21:45 12/15/19 25 12/14/2024 COMPR EHENS PETRA METAB OLIC PANEL total protein 7.1 g/dL 6.3-8. 2 Not Available [facility] (Lab) [address] [place], [address], 12/14/2024 14:21:45 12/15/19 25 12/14/2024 COMPR EHENS PETRA METAB OLIC PANEL albumin 4.3 g/dL 3.0-4. 4 Not Available [facility] (Lab) [address] [place], [address], 12/14/2024 14:21:45 12/15/19 25 12/14/2024 COMPR EHENS PETRA METAB OLIC PANEL globulin 2.8 g/dL 2.6-4. 2 Not Available [facility] (Lab) [address] [place], [address], 12/14/2024 14:21:45 12/15/19 25 12/14/2024 COMPR EHENS PETRA METAB OLIC PANEL A/G ratio 1.5 ratio 1.0-2. 0 Not Available [facility] (Lab) [address] [place], [address], 12/14/2024 14:21:45 12/15/19 25 12/14/2024 HEMOG LOBIN A1C HA1C 6.2 % 4.0-6. 0 high Diabe warner Scree antionette Crite sita: <5.7% Consi stent with absen ce of diabe warner 5.7-6 .4% Consi stent with incre ased risk for diabe warner (pred iabet es) >OR=6 .5% Consi stent with diabe warner REFER ENCE: Diabe warner Care 2016, 39([place] ppl.1 ):s13 -s22 Not Available [facility] (Lab) [address] [place], [address], 12/14/2024 14:40:38 12/15/19 25 12/14/2024 TSH W/REF JACKI FT4 TSH with reflex free T4 1.620 uIU/m L 0.465- 4.680 Not Available [facility] (Lab) [address] [place], [address], 12/14/2024 14:45:28 12/15/19 25 12/14/2024 MICRO ALBUM IN RANDO M URINE microalbumin , urine 16.1 mg/L 0.0-16 .6 Not Available [facility] (Lab) [address] [place], [address], 12/14/2024 15:21:18 12/15/19 25 12/14/2024 VITAM IN B12 (AILYN SEVERO ) vb12 265 pg/mL 239-93 1 Not Available [facility] (Lab) [address] [place], [address], 12/14/2024 15:41:43 12/15/19 25 12/14/2024 FOLAT E, SERUM /PLAS MA folate 10.5 NG/mL 2.76-2 0.0 Not Available [facility] (Lab) [address] [place], [address], 12/14/2024 15:41:49 12/15/19 25 12/14/2024 VITAM IN D 25-HY DROXY vd25oh 23.5 NG/mL 30-100 low Vitam in D Statu s: Defic ient: <20 ng/mL Insuf ficie nt: 20-29 ng/mL Suffi cient : 30-10 0 ng/mL Not Available [facility] (Lab) [address] [place], [address], 12/14/2024 16:41:42 02/24/20 24 02/24/2024 MAMMO , scree antionette, digit al, bilat eral No observ ation record ed. [email or web address] [facility] [address], [place], [address], 03/29/2024 14:01:46 12/29/19 25 12/28/2024 imagi ng/di agnos tic resul t No observ ation record ed. [facility] [address], [place], [address], 12/28/2024 17:57:41 Result Notes None recorded. Problems Name Problem SNOMED Code Status Onset Date Resolution Date Notes Provider Name and Address Organization Details Recorded Time Paronych ia of toe of left foot 66978194253 362327 Completed 201904/12/2020 Not Available [facility] 3 00:54:21 Paronych ia of toe of right foot 44285793859 925575 Active 2020 Not Available [facility] 3 00:54:21 History of left total knee replacem ent 88462128431 67661 Active 2021 Not Available [facility] 3 00:54:21 Plantar fasciiti s of left foot 93080337976 012426 Completed 201902/18/2021 Not Available [facility] 3 00:54:21 Plantar fasciiti s of left foot 47337811757 175406 Completed 201904/12/2020 Not Available [facility] 3 00:54:21 Chronic back pain 613270823 Active 2016 Not Available [facility] 3 00:54:21 Disorder of thyroid gland 95788261 Active Not Available [facility] 3 00:54:21 Constipa tion 96238765 Active 2016 Not Available [facility] 3 00:54:22 Asthma 871046041 Active 2016 Not Available [facility] 3 00:54:22 Abdomina l pain 90001499 Active 2016 Not Available [facility] 3 00:54:22 Abnormal weight 50436689 Active 2016 Not Available [facility] 3 00:54:22 Morbid obesity 175340261 Active 2021 Not Available [facility] 3 00:54:22 Headache 85802747 Active 2019 Not Available [facility] 3 00:54:22 Injury of nail 823630386 Completed 202002/18/2021 Not Available [facility] 3 00:54:22 Injury of great toenail 135895239 Completed 202002/18/2021 Not Available [facility] 3 00:54:22 Unable to cut own toenails 088912514 Active 2019 Not Available [facility] 3 00:54:22 Osteopen ia 984090166 Active 2016 DEXA 10/26, 11/2022 Mirian Pagan MD [address] [place] [address], [address] , [facility] [employer] 3 10:32:15 Osteoart hritis of right knee joint 09308090870 9100 Active 2021 Not Available [facility] 3 00:54:22 Hyperthy roidism 84666250 Active 2016 Not Available [facility] 3 00:54:22 Arthriti s 9623443 Active 2016 Not Available [facility] 3 00:54:22 Hyperten sive disorder 11846966 Active 2016 Not Available [facility] 3 00:54:23 Sleep disorder 18988655 Completed 201904/12/2020 Not Available [facility] 3 00:54:23 Hypothyr oidism 36113652 Active 2019 Not Available [facility] 3 00:54:23 Obesity 085723167 Active 2019 Not Available [facility] 3 00:54:23 Gastriti s 1946699 Active 2016 Not Available [facility] 3 00:54:23 Hyperlip idemia 87420366 Active 2018 SERINA Rios, [facility] [employer] 5 12:27:12 Wheezing 36768481 Active 2016 Not Available [facility] 3 00:54:23 Pain of joint 03461942 Active 2016 Not Available [facility] 3 00:54:23 Occult blood detected in feces 03159131 Active 2016 Not Available [facility] 3 00:54:23 Osteopor osis 07092383 Active 2019 Not Available [facility] 3 00:54:23 Polyp of colon 23420150 Active 2018 [employer] 12/08/18 tubular adenoma Not Available [facility] 3 00:54:24 Muscle pain 65109594 Active 2016 Not Available [facility] 3 00:54:24 Snoring 18246930 Active 2016 Not Available [facility] 3 00:54:24 Diabetes mellitus 40842684 Active 2018 Not Available [facility] 3 00:54:24 Gastroin testinal hemorrha ge 65426656 Active 2016 received blood transfus ion Not Available [facility] 3 00:54:24 Dystroph ia unguium 45084862 Active 2019 Not Available [facility] 3 00:54:24 Vitamin D deficien cy 52840181 Active 2022 SERINA Rios, [employer] 5 12:27:22 Otalgia of right ear 1306486070 Active 2022 Mirian Pagan MD [address] [facility], [place] [address], [place], [address] , [employer] 3 15:36:03 Pain of bilatera l knee joints 79609245223 4104 Active 2022 Mirian Pagan MD [address] [facility], [address], [place], [address] , [employer] 3 15:20:19 Necrobio sis lipoidic a 4964178 Active 2022 Mirian Pagan MD [address] [facility], [facility] [address], [place], [address] , [employer] [facility] 3 15:21:10 Osteoart hritis 448043563 Active 2022 SERINA Robbins, [facility] 3 14:50:15 Pain of right knee joint 89691390886 4100 Active 2022 Doris Elias [employer] null, [facility] 3 14:15:30 Insomnia 755055610 Active 2022 Mirian Pagan MD [address], [address], [place], [address] , [facility] 3 16:32:44 Bilatera l shoulder joint pain 19501105376 229432 Active 2022 Mirian Pagan MD [address], [address], [place], [address] , [facility], [facility] 3 16:33:24 Essentia l hyperten gale 14620056 Active 2023 Mirian Pagan MD [address], [address], [place], [address] , [facility], [facility] 4 15:06:40 Tubular adenomat ous polyp of colon 036097990 Active 2023 Mirian Pagan MD [address], [address], [place], [address] , [facility], [facility] 4 15:09:08 Heartbur n 72016503 Active 2023 Mirian Pagan MD [address], [address], [place], [address] , [facility], [facility] 4 15:14:15 Cellulit is of lower limb 247725296 Active 2023 SANTO Lam [address], [address], [place], [address] , [facility], [facility] 4 14:52:59 Sciatica 47147827 Active 2024 SANTO Lma [address], [address], [place], [address] , [facility], [facility] 5 15:57:35 Type 2 diabetes mellitus without complica tion 827060198 Active 2024 Gail fong MD [address], [address], [place], [address] , [facility], [facility] 5 20:32:09 Gastroes ophageal reflux disease without esophagi tis 230780976 Active 2024 Gail fong MD [address], [address], [place], [address] , [facility], [facility] 5 20:34:38 Serum vitamin B12 below referenc e range 954862885 Active 2024 Gail fong MD [address], [address], [place], [address] , [facility], [facility] 5 20:34:54 Chronic obstruct petra pulmonar y disease 58952697 Active 2024 Gail fong MD [address], [address], [place], [address] , [facility], [facility] 5 20:35:09 Chronic low back pain 335224935 Active 2024 Gail fong MD [address], [address], [place], [address] , [facility], [facility] 5 15:18:17 Peripher al vascular disease 177600705 Active 2024 Gail fong MD [address], [address], [place], [address] , [facility], [facility] 5 15:20:09 Primary insomnia 6998106 Active 2024 Gail fong MD [address], [address], [place], [address] , [facility], [facility] 5 19:27:01 Notes:ALLERGIES BRONCHITIS G ASTROINTESTINAL BLEEDING PNEUMONIA Problem Notes None recorded. Procedures Surgical History Date Name Laterality Status Provider Name and Address Organization Details Recorded Time 4 Medicare Wellness CPT Code, subsequent completed Kathleen Meadows RN [facility] [employer] 01/18/2024 14:32:47 3 Ortho - Cortisone Injection completed Denis Grace MD [address] [facility], [facility] [address], [place], [address], [facility] [employer] 01/06/2023 15:21:38 Imaging Results None recorded. Procedure Notes None recorded. Medical Equipment None Reported. Allergies Allergen ID Allergen Name Allergen Category Reaction Reaction Severity Criticality Documentation Date Start Date Code Code System Note Provider Name and Address Organization Details Recorded Time 1176 lisinopri l medicatio n Not available Not available Not available 11/05/2022 78503 RxNorm Not Available [facility] 3 01:01:16 1177 aspirin medicatio n Not available Not available Not available 11/05/2022 1191 RxNorm GI bleed Not Available [facility] 3 01:01:16 Medications Name Sig Start Date Stop Date Status Note LastModified by Organization Details LastModified Time furosemide 40 mg tablet TAKE 1&1/2 TABLETS BY MOUTH EVERY DAY NEEDED 03/13 completed Not Available Not Available Not Available atorvastati n 40 mg tablet TAKE 1 TABLET BY MOUTH EVERY DAY active Not Available Not Available No t Available levothyroxi ne 137 mcg tablet 03/24 completed Not Available Not Available Not Available prednisone 10 mg tablet PLEASE SEE ATTACHED FOR DETAILED DIRECTION S 01/17 completed Not Available Not Available Not Available atorvastati n 20 mg tablet TAKE 1 TABLET BY MOUTH EVERY DAY active Not Available Not Available No t Available albuterol sulfate 2.5 mg/3 mL (0.083 %) solution for nebulizatio n USE 1 VIAL PER NEBULIZER 4 TIMES A DAY NEEDED active Not Available Not Available No t Available azithromyci n 250 mg tablet TAKE 2 TABLETS BY MOUTH TODAY, THEN TAKE 1 TABLET DAILY FOR 4 DAYS active Not Available Not Available No t Available benzonatate 200 mg capsule TAKE 1 CAPSULE BY MOUTH THREE TIMES A DAY NEEDED 03/13 completed Not Available Not Available Not Available hydrocodone 5 mg-acetamin ophen 325 mg tablet TAKE 1 TABLET BY MOUTH EVERY 6 HOURS NEEDED 01/17 completed Not Available Not Available Not Available lisinopril 20 mg tablet TAKE 1 TABLET BY MOUTH EVERY DAY 01/17 completed Not Available Not Available Not Available prednisone 20 mg tablet TAKE 3 TABLETS BY MOUTH EVERY MORNING FOR 5 DAYS 12/12 completed Not Available Not Available Not Available metoprolol succinate ER 100 mg tablet,exte nded release 24 hr TAKE 1 TABLET BY MOUTH EVERY DAY active Not Available Not Available No t Available clobetasol 0.05 % topical cream PLEASE SEE ATTACHED FOR DETAILED DIRECTION S active Not Available Not Available No t Available sumatriptan 50 mg tablet 03/13 completed Not Available Not Available Not Available Accu-Chek Softclix Lancets TEST BLOOD GLUCOSE DAILY DX E11.9 active Not Available Not Available No t Available doxepin 10 mg capsule TAKE ONE CAPSULE BY MOUTH AT BEDTIME NEEDED FOR INSOMNIA active Not Available Not Available No t Available tramadol 50 mg tablet TAKE 1 TABLET BY MOUTH EVERY 6 HOURS NEEDED 01/17 completed Not Available Not Available Not Available triamcinolo ne acetonide 0.1 % topical cream APPLY A THIN LAYER TOPICALLY TO THE AFFECTED AREA(S) 2 TIMES PER DAY NEEDED FOR RASH 12/12 completed Not Available Not Available Not Available hydrocortis one acetate 25 mg rectal suppository Insert 1 supposito ry twice a day by rectal route as needed for 7 days. 10/20 completed Not Available Not Available Not Available prednisone 10 mg tablets in a dose pack Take 1 tab by mouth, 3 times a day for 3 daysTake 1 tab by mouth 2 times a day for 2 daysTake 1 tab by mouth once a day for 1 day 01/17 completed Not Available Not Available Not Available Nitro-Bid 2 % transdermal ointment 03/24 completed Not Available Not Available Not Available oxycodone-a cetaminophe n 5 mg-325 mg tablet TAKE 1 TABLET BY MOUTH FOUR TIMES A DAY NEEDED active Not Available Not Available No t Available amoxicillin 875 mg tablet Take 1 tablet every 12 hours by oral route for 10 days. active Not Available Not Available No t Available famotidine 20 mg tablet TAKE 1 TABLET BY MOUTH TWICE A DAY active Not Available Not Available No t Available methocarbam ol 750 mg tablet TAKE 1 TABLET BY MOUTH THREE TIMES A DAY NEEDED FOR MUSCLE SPASMS 12/12 completed Not Available Not Available Not Available clindamycin 1 % topical gel APPLY THIN COAT TO AFFECTED AREA TWICE A DAY 12/12 completed Not Available Not Available Not Available trazodone 100 mg tablet TAKE 1 TABLET BY MOUTH AT BEDTIME NEEDED FOR INSOMNIA 12/20 completed Not Available Not Available Not Available Kenalog 10 mg/mL suspension for injection in office 01/17 completed [facility]: 0003- [phone]- 20 Not Available Not Available Not Available amlodipine 10 mg tablet TAKE 1 TABLET BY MOUTH EVERY DAY active Not Available Not Available No t Available benzonatate 100 mg capsule TAKE 1 CAPSULE BY MOUTH THREE TIMES A DAY NEEDED FOR 10 DAYS active Not Available Not Available No t Available cephalexin 500 mg capsule TAKE 1 CAPSULE BY MOUTH TWICE A DAY FOR 7 DAYS 12/12 completed Not Available Not Available Not Available levothyroxi ne 125 mcg tablet TAKE 1 TABLET BY MOUTH EVERY DAY IN THE MORNING active Not Available Not Available No t Available triamcinolo ne acetonide 0.1 % topical ointment Apply 1 applicati on twice a day by topical route as needed. active Not Available Not Available No t Available prednisone 50 mg tablet 01/17 completed Not Available Not Available Not Available Advair Diskus 250 mcg-50 mcg/dose powder for inhalation INHALE 1 PUFF TWICE A DAY (IN THE MORNING AND IN THE EVENING, APPROXIMA TELY 12 HOURS APART) 05/03 completed Not Available Not Available Not Available omeprazole 20 mg capsule,del ayed release TAKE 1 CAPSULE BY MOUTH DAILY BEFORE A MEAL 03/13 completed Not Available Not Available Not Available Banophen 25 mg capsule TAKE ONE CAPSULE BY MOUTH EVERY 6 HOURS NEEDED FOR ITCHING 03/13 completed Not Available Not Available Not Available cephalexin 500 mg tablet Take 1 tablet twice a day by oral route for 7 days. 11/25 completed Not Available Not Available Not Available hydrochloro thiazide 25 mg tablet TAKE 1 TABLET BY MOUTH EVERY DAY active Not Available Not Available No t Available mupirocin 2 % topical ointment APPLY A SMALL AMOUNT TO THE AFFECTED AREA OF TOE BY TOPICAL ROUTE 3 TIMES PER DAY 12/12 completed Not Available Not Available Not Available zolpidem 5 mg tablet Take 1 tablet every day by oral route as needed for 30 days. 2024 active Not Available Not Available Not Avai lable ergocalcife rol (vitamin D2) 1,250 mcg (50,000 unit) capsule TAKE 1 CAPSULE BY MOUTH ONE TIME PER WEEK active Not Available Not Available No t Available polyethylen e glycol 3350 17 gram/dose oral powder MIX 1 CAPFUL IN 4-6 OUNCES LIQUID AND DRINK DAILY NEEDED FOR CONSTIPAT ION 03/13 completed Not Available Not Available Not Available methylpredn isolone 4 mg tablets in a dose pack TAKE 6 TABLETS ON DAY 1 DIRECTED ON PACKAGE AND DECREASE BY 1 TAB EACH DAY NEEDED active Not Available Not Available No t Available albuterol sulfate HFA 90 mcg/actuati on aerosol inhaler TAKE 2 PUFFS BY MOUTH EVERY 4 HOURS NEEDED active Not Available Not Available No t Available fluticasone propionate 50 mcg/actuati on nasal spray,suspe nsion SPRAY 2 SPRAYS INTO EACH NOSTRIL EVERY DAY active Not Available Not Available No t Available metformin ER 500 mg tablet,exte nded release 24 hr TAKE 1 TABLET BY MOUTH TWICE A DAY active Not Available Not Available No t Available naproxen 500 mg tablet Take 1 tablet twice a day by oral route. 10/17 completed Not Available Not Available Not Available levothyroxi ne 112 mcg tablet TAKE 1 TABLET BY MOUTH EVERY DAY active Not Available Not Available No t Available Bactrim DS 800 mg-160 mg tablet Take 1 tablet every 12 hours by oral route for 7 days. 11/07 completed Not Available Not Available Not Available metformin ER 500 mg 24 hr tablet,exte nded release (gastric retention) TAKE 1 TABLET TWICE DAILY 01/17 completed Not Available Not Available Not Available cholecalcif anne-marie (vitamin D3) 1,250 mcg (50,000 unit) capsule TAKE 1 CAPSULE EVERY WEEK BY ORAL ROUTE, FOR 8 WEEKS. TAKE WITH OTC CALCIUM. active Not Available Not Available No t Available Gavilyte-C 240 gram-22.72 gram-6.72 gram-5.84 gram oral solution 03/13 completed Not Available Not Available Not Available ropivacaine (PF) 5 mg/mL (0.5 %) injection solution in office 01/17 completed Not Available Not Available Not Available OneTouch Verio test strips USE ONE STRIP TO TEST ONCE PER DAY active Not Available Not Available No t Available potassium chloride ER 20 mEq tablet,exte nded release TAKE 1 TABLET BY MOUTH EVERY DAY active Not Available Not Available No t Available Anoro Ellipta 62.5 mcg-25 mcg/actuati on powder for inhalation INHALE ONE PUFF BY MOUTH EVERY DAY active Not Available Not Available No t Available Trulicity 0.75 mg/0.5 mL subcutaneou s pen injector INJECT 0.5 ML SUBCUTANE OUSLY ONCE A WEEK active Not Available Not Available No t Available Stiolto Respimat 2.5 mcg-2.5 mcg/actuati on solution for inhalation Inhale 2 puffs po every day 2023 active Not Available Not Available Not Avai lable OneTouch Verio Flex Meter TEST ONCE PER DAY DX E11.9 active Not Available Not Available No t Available Fluzone High-Dose 8732-4538 (PF) 180 mcg/0.5 mL intramuscul ar syringe active Not Available Not Available N ot Available Proctosol HC 2.5 % topical cream perineal applicator APPLY A THIN LAYER TO AFFECTED AREA(S) 2 - 4 TIMES DAILY NEEDED active Not Available Not Available No t Available Fluzone High-Dose (PF) 180 mcg/0.5 mL intramuscul ar syringe TO BE ADMINISTE RED BY PHARMACIS T FOR IMMUNIZAT ION 03/13 completed Not Available Not Available Not Available OneTouch Delica Plus Lancet 33 gauge TEST ONCE PER DAY DX E11.9 active Not Available Not Available No t Available Fluzone High-Dose (PF) 180 mcg/0.5 mL intramuscul ar syringe TO BE ADMINISTE RED BY PHARMACIS T FOR IMMUNIZAT ION 03/13 completed Not Available Not Available Not Available Vitals Date Recorded Body height Body mass index (BMI) Body weight Body temperature Heart rate Oxygen saturation Oxygen saturation in Arterial blood by Pulse oximetry Systolic blood pressure Diastolic blood pressure Provider Name and Address Organization Details Last Updated DateTime 5 165.1 cm 41.1 kg/m2 045802. 32 g 98.3 [degF] 74 /min 76 % 76 % 124 mm[Hg] 76 mm[Hg] SERINA Rios - [email or web address] [email or web address] [facility] 5 14:50:47 Date Recorded Body height Body mass index (BMI) Body weight Body temperature Oxygen saturation Oxygen saturation in Arterial blood by Pulse oximetry Heart rate Systolic blood pressure Diastolic blood pressure Provider Name and Address Organization Details Last Updated DateTime 4 165.1 cm 40.9 kg/m2 307377. 72 g 97.2 [degF] 93 % 93 % 72 /min 132 mm[Hg] 76 mm[Hg] Kathleen Meadows RN [facility] [employer] [facility] 4 14:35:34 Date Recorded Body height Body mass index (BMI) Body weight Body temperature Heart rate Oxygen saturation Oxygen saturation in Arterial blood by Pulse oximetry Systolic blood pressure Diastolic blood pressure Provider Name and Address Organization Details Last Updated DateTime 4 165.1 cm 39.3 kg/m2 807489. 8 g 98 [degF] 65 /min 94 % 94 % 136 mm[Hg] 80 mm[Hg] Kathleen Meadows RN [facility] [employer] [facility] 4 14:46:56 Social History Question Answer Notes LastModified by Organizat ion Details LastModified Time Tobacco Smoking Status Former Smoker quit 2004 SERINA Rios, [facility] [employer] [facility] 12/12/2024 14:48:44 Do You Have An Advance Directive? No [id number] Information not available 11/05/2022 Are You Blind Or Do You Have Difficulty Seeing? No [id number] Information not available 11/05/2022 What Is Your Level Of Caffeine Consumption? Occasional [id number] Information not available 11/05/2022 How Much Tobacco Do You Chew? None MIGRATION.[id number] 7819 Information not available 11/05/2022 Are You Deaf Or Do You Have Serious Difficulty Hearing? No MIGRATION.[id number] Information not available 11/05/2022 What Type Of Diet Are You Following? REGULAR MIGRATION.[id number] Information not available 11/05/2022 Which Illicit Or Recreational Drugs Have You Used? No MIGRATION.[id number] Information not available 11/05/2022 When Did You Quit Smoking? 15+yearssinpetros tello Information not available 12/12/2024 Advance Directive- Providers Has Reviewed Directive And Consents To Follow Them (insert Provider Name With Any Objectives In Notes Field) No [id number] Information not available 11/05/2022 What Was The Date Of Your Most Recent Tobacco Screening? 12/12/2024 Information not available 12/12/2024 At What Age Did You Start Smoking Tobacco? 16 Information not available 12/12/2024 How Much Tobacco Do You Smoke? No Was 3 Ppd Information not available 12/12/2024 How Many Years Have You Smoked Tobacco? 37 MIGRATION.[id number] [id number] Information not available 11/05/2022 Do You Have Difficulty Walking Or Climbing Stairs? No MIGRATION.[id number] Information not available 11/05/2022 Sex: Unknown Functional Status Question Answer Note LastModified by Organizat ion Details LastModified Time Do you or have you ever used any other forms of tobacco or nicotine? No Information not available 12/12/2024 What is your level of alcohol consumption? None MIGRATION.[id number] Information not available 11/05/2022 Do you or have you ever used smokeless tobacco? Never used smokeless tobacco MIGRATION.[id number] 026 Information not available 11/05/2022 Do you have difficulty doing errands alone? No MIGRATION.[id number] 026 Information not available 11/05/2022 Do you have difficulty dressing or bathing? No MIGRATION.[id number] 026 Information not available 11/05/2022 Do you or have you ever used e-cigarettes or vape? Never used electronic cigarettes MIGRATION.[id number] 026 Information not available 11/05/2022 What is your exercise level? Occasional MIGRATION.[id number] 026 Information not available 11/05/2022 Mental Status Question Answer Note LastModified by Organizat ion Details LastModified Time Do you have difficulty concentrating, remembering or making decisions? No [id number] Information not available 11/05/2022 Family History Relationship Description Onset Age of this Age Resolved Age Notes LastModified by Organization Details LastModified Time Unspecified Relation Hypertensive disorder [id number] Not available 11/05/2022 00:47:36 Unspecified Relation Diabetes mellitus [id number] Not available 11/05/2022 00:47:36 Medical History Condition Response ARTHRITIS Y DIABETES, TYPE Y HYPERTENSION Y OSTEOPOROSIS Y Gynecological History Statement/Question Response Current Control Method Menopause Date of LMP Breast Problems no Obstetrics History GPAL:G 0 P 0 0 0 0 Immunizations Vaccine Type Date Status Note Provider Nam e and Address Organization Details Recorded Time influenza, unspecified formulation 2 completed Not Available [facility] 11/05/2022 01:01:02 COVID-19, mRNA, LNP-S, PF, 30 mcg/0.3 mL dose 1 completed Not Available [facility] 11/05/2022 01:01:02 COVID-19, mRNA, LNP-S, PF, 30 mcg/0.3 mL dose 1 completed Not Available [facility] 11/05/2022 01:01:03 pneumococcal polysaccharide PPV23 2 completed Not Available [facility] 11/05/2022 01:01:03 Influenza, high-dose, quadrivalent, PF 1 completed Not Available [facility] 11/05/2022 01:01:03 Pneumococcal conjugate PCV 13 0 completed Not Available [facility] 11/05/2022 01:01:03 Influenza, high-dose, trivalent, PF 7 completed Not Available [facility] 11/05/2022 01:01:03 Influenza, high-dose, quadrivalent, PF 3 completed Mirian Pagan MD [address] [facility], [facility] [address], [place], [address], [facility] [place] [employer] 08/02/2023 09:02:16 Past Encounters Encounter ID Performer Location Encounter Start Date Encounter Closed Date Diagnosis/Indication Diagnosis SNOMED-CT Code Diagnosis ICD10 Code Diagnosis Note [id number] Mirian Pagan MD [facility] [address] [facility] [address] [place] [address] 11/07/2020 00:00:00 11/08/2020 08:14:26 [id number] Diego Gentile DPM [facility] [place] [address] [facility] [address] [place] [address] 11/15/2020 00:00:00 11/28/2020 13:02:19 [id number] Mirian Pagan MD [facility] [place] [address] [place] [address] 01/07/2021 00:00:00 01/07/2021 17:29:41 [id number] Diego Gentile DPM [facility] [place] [address] [facility] [address] [place] [address] 02/14/2021 00:00:00 02/18/2021 09:22:59 [id number] Mirian Pagan MD [facility] [place] [address] [facility] [address] [place] [address] 06/18/2021 00:00:00 06/18/2021 19:04:03 [id number] Mirian Pagan MD [facility] [place] [address] [facility] [address] [place] [address] 07/25/2021 00:00:00 07/29/2021 08:24:23 [id number] Mirian Pagan MD [facility] [place] [address] [facility] [address] [place] [address] 03/05/2022 00:00:00 03/05/2022 15:14:45 [id number] Denis Grace MD [facility] [place] [address] [facility] [address] [place] [address] 03/13/2022 00:00:00 03/13/2022 14:55:59 [id number] Denis Grace MD [facility] [place] [address] [facility] [address] [place] [address] 04/10/2022 00:00:00 04/10/2022 13:53:47 [id number] CLARITA Carmen [facility] [place] [address] [place] [address] 04/30/2022 00:00:00 04/30/2022 16:20:44 [id number] Mirian Pagan MD [facility] [place] [address] [place] [address] 07/29/2022 00:00:00 08/05/2022 08:35:25 [id number] Mirian Pagna MD [facility] Primary Care [place] [address] [place] [address] 09/09/2022 00:00:00 09/09/2022 16:08:07 [id number] Mirian Pagan MD [facility] [place] [address] [place] [address] 10/16/2022 00:00:00 10/16/2022 15:41:52 [id number] Mirian Pagan MD [facility] Primary [facility] [place] [address] [place] [address] 11/25/2022 15:01:24 11/25/2022 16:04:34 Diabetes mellitus 10382255 E11.9 continue current [facility] labs Hyperlipidemia 33935108 E78.5 Z79.899 Hypothyroidism 24078666 E03.9 Vitamin D deficiency 347 98068 E55.9 Otalgia of right ear 945 0062304 H92.01 pt requests ENT referral [id number] Mirian Pagan MD [facility] [place] [address] [facility] [address] [place] [address] 12/31/2022 14:53:11 12/31/2022 15:35:04 Pain of bilateral knee joints 6452303306 73823 M25.561 M25.562 ortho referral given 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 [place] [address] 01/06/2023 14:45:09 01/06/2023 15:21:34 Osteoarthritis 705466669 M17.11 History of left total knee replacement 8239054469 430082 Z96.652 [id number] Denis Grace MD [facility] [place] [address] [place] [address] 02/05/2023 14:10:16 02/05/2023 15:45:16 History of left total knee replacement 8721400481 876162 Z96.652 Pain of ri ght knee joint 2490095295 72929 M25.561 [id number] Mirian Pagan MD [facility] Primary Care [address] [place] [address] 04/01/2023 15:36:41 04/01/2023 16:39:41 Insomnia 773236034 G47.00 has failed benadryl, melatonin, doxepin, trazodonez olpidem 5 mg po qhs is helpful Bilateral shoulder joint pain 9937591352 0849171 M25.511 M25.512 Pt understand s this medication has risk for abuse/depe ndence and agrees to take it only as prescribed and to guard from loss/theft [id number] Mirian Pagan MD [facility] Primary Care [address] [place] [address] 07/15/2023 15:13:11 07/15/2023 15:41:47 Diabetes mellitus 84614325 E11.9 continue current [facility] labs Hyperlipidemia 63106461 E78.5 Z79.899 Hypothyroidism 42652420 E03.9 Vitamin D deficiency 347 33536 E55.9 Insomnia 142106189 G47.0 0 has failed benadryl, melatonin, doxepin, trazodonez olpidem 5 mg po qhs is helpful, ok to continue prn Administra tion of influenza vaccine 60955640 Z23 [id number] Mirian Pagan MD [facility] Primary Care [address] [place] [address] 01/18/2024 14:28:01 01/18/2024 15:26:54 Adult health examination 681811201 Z00.00 No longer qualifies for LDCT-nonsm oker >15 years Mammogram order given colonoscop y done 12/08/18-tub ular adenoma-re peat ordered DEXA done 11/27-osteo penia repeat 2024 Prevnar 13 done 11/03/19Rec ommend covid boosterRec ommend RSVFlu vaccine annually Pneumovax 23 given 2022 Fasting labs drawn Screening for disorder 181020290 Z13.9 Asthma 717135156 J45.90 9 Diabetes mellitus 549821 09 E11.9 continue current medspodiat ry referraldi abetic eye exam referralch imani labs Hyperlipidemia 61749581 E78.5 Z79.899 Hypothyroidism 76954633 E03.9 Osteopenia 216701872 M85 .80 Vitamin D deficiency 347 58477 E55.9 Insomnia 030735037 G47.0 0 has failed benadryl, melatonin, doxepin, trazodonez olpidem 5 mg po qhs is helpful, ok to continue prn Essential hypertension 05878189 I10 Screening mammography 24 288036 Z12.31 Tubular ad enomatous polyp of colon 927853922 D12.6 Headache 51882182 R51.9 Type 2 kareem betes mellitus without complication 411035983 E11.9 Heartburn 18666715 R12 [id number] REEMA Neumann-Elaina [facility] Primary Care [address] [place] [address] 03/17/2024 16:32:16 03/17/2024 16:54:44 [id number] REEMA Lam-Elaina [facility] Primary Care [address] [place] [address] 05/30/2024 14:37:27 05/30/2024 14:58:41 Cellulitis of lower limb 572194198 L03.119 Discussed medication compliance and completing full prescripti on even if symptoms improve. patient will follow up if symptoms do not improve after completion of antibiotic s. Essential hypertension 48934373 I10 Hyperlipidemia 46267010 E78.5 Heartburn 40505176 R12 Hypothyroidism 59082933 E03.9 Type 2 kareem betes mellitus without complication 198592489 E11.9 Insomnia 890608408 G47.0 0 Renewal of prescription 544070367 Z76.0 [id number] Gail fong MD [facility] Primary Care [address] [place] [address] 12/12/2024 14:36:53 12/12/2024 15:21:57 Screening - NAD 691399978 Z13.9 C-scope: Dr Le: 01/18/2024 : No further Mammogram: Get this PAP: Does not do this DEXA: Get this Get yearly flu shot, can do Tdap if not doneCan do COVID 19 boosters, and shingrix vaccineCan do RSV vaccineCan do prevnar #20 vaccine RTC in 3 months, do labs Postmenopausal state 764 61957 Z78.0 Screening mammography 24 931327 Z12.31 Essential hypertension 41267027 I10 On amlodipine 10mg dailyOn HCTZ 25mg dailyOn metoprolol ER 100mg dailyGet labs Hyperlipidemia 63149335 E78.5 On atorvastat in 20mg dailyGet labs Hypothyroidism 84220261 E03.9 On levothyrox ine 112mcgs dailyGet labs Type 2 kareem betes mellitus without complication 671209952 E11.9 On metformin ER 500mg bidOn trulicity 0.75mg weekly Insomnia 152520269 G47.0 0 On zolpidem 5mg daily, OK to renew, take ONLY as needed Gastroesop hageal reflux disease without esophagitis 079489280 K21.9 On famotidine Vitamin D deficiency 347 13749 E55.9 Serum calderon min B12 below reference range 430933105 R79.89 Chronic ob structive pulmonary disease 16806055 J44.9 On albuterol HHNsOn albuterol Deandre Guzman states that she does well with this Chronic low back pain 27 5383300 M54.[address] [place] [facility] [place] methocar[place] mol, not taking anymoreWil l treat with MDP as she has had this in the past with good reliefIf not better may need to see pain management Peripheral vascular disease 576407940 I73.9 Mild +1 pitting edema lillie ankles with mild rednessGet a referral to cardiology [id number] Gail fong MD [facility] [place] [address] [facility] [address] [place] [address] 12/14/2024 08:34:48 12/14/2024 09:29:53 Health Concerns Section Related Observation LastModified by Organization Detai ls LastModified Time None Recorded Concern Status LastModified by Organization Details LastModified Time None Recorded Advance Directives Directive N: Payers Encounter Date Sequence Insurance Name Policy Number Policy Barlow Covered Member ID Barlow Member ID Guarantor Name 01/18/2024 1 [place] Kimberly Danny [id number] Kimberly Danny 03/17/2024 1 [place] Kimberly Danny [id number] Kimberly Danny 05/30/2024 1 [place]ly Danny [id number] Kimberly Danny 12/12/2024 2 [place] Kimberly Danny [id number] Kimberly Danny 12/12/2024 1 [facility] (MEDICARE REPLACEMENT/A DVANTAGE - PPO) [id number] Kimberly Danny [id number] Kimberly Danny 12/14/2024 2 [place] Kimberly Danny [id number] Kimberly Danny 12/14/2024 1 [facility] (MEDICARE REPLACEMENT/A DVANTAGE - PPO) [id number] Kimberly Danny [id number] Kimberly Danny Notes Date Note Type Note Provider Name and Address Organization Details Recorded Time 01/18/2024 text/html swelling in b/l LE recent headaches that come and go, can occur in clusters, can wake her at nightheadache pain is base of neck, temples and behind eyes home blood pressures are excellent Mirian Pagan MD [address], [facility] [address], [place], [address], [facility] 01/24/2024 11:19:01 05/30/2024 text/html Patient is a 73 year old female that presents to the office for follow up. Patient reports she is doing well on current medications. Patient denies chest pain and shortness of breath, nausea vomiting and diarrhea. Patient reports swelling and redness to left lower extremity. Patient reports symptoms have been ongoing for a couple of months. Patient denies fevers. Patient denies treatment of symptoms prior to arrival. SANTO Lam [address], [facility] [address], [place], [address], [employer] [facility] 05/30/2024 15:03:52 12/12/2024 text/html OV 12/12/2024:He re to establish care Present Hx:COPDGERDHTNHypot hyroidismDMIIInsomn ia Gail Moreland MD [address], [address], [place], [address], [employer] 12/12/2024 15:31:43 OBGyn Episode No OBEpisode recorded.
--- OUTSIDE RECORDS SUMMARY | 2025-02-08 14:06 | XMS_ITS | Continuity of Care Document ---
Author Organization [facility] Address [address] [facility] [place] [address] Phone Care Team Providers Care Frame Bender Name Role Phone Terence Malik MD Unavailable Unavailable Allergies, Adverse Reactions, Alerts Substance Reaction Status Criticality aspirin Active No Information Medications Medication Instructions Dosage Effective Dates (start - stop) Status Comments Imitrex 50 mg tablet take 1 tablet by oral route 50 MG - Active take one at onset of headache, may repeat x one in two hours, max 2/24 hours omeprazole 20 mg capsule,delayed release take 1 capsule (20MG) by oral route every day before a meal 20 MG - Active tramadol 50 mg tablet take 1 tablet (50MG) by oral route every 6 hours as needed - Active PRN for pain, avoid drivnig or operate machiens albuterol sulfate 2.5 mg/3 mL (0.083 %) solution for nebulization inhale 3 milliliter (2.5MG) by nebulization route 2 times every day 2.5 MG - Active 496 Advair Diskus 250 mcg-50 mcg/dose powder for inhalation inhale 1 puff by inhalation route 2 times every day in the morning and evening approximately 12 hours apart 1.00 puff - Active Norvasc 10 mg tablet take 1 tablet by oral route every day 10 MG - Active Toprol XL 100 mg tablet,extended release take 1 tablet (100MG) by oral route every day - Active hydrochlorothiazide 25 mg tablet take 1 tablet (25MG) by oral route every day - Active lisinopril 20 mg tablet take 1 tablet (20MG) by oral route every day - Active Vitamin D2 50,000 unit capsule take 1 capsule by oral route every week - Active calcium citrate 200 mg (950 mg) tablet as directed - Active take as instructed by the [facility] box label Procedures Procedure Date OFFICE/OUTPATIENT VISIT, EST OFFICE/OUTPATIENT VISIT, EST OFFICE/OUTPATIENT VISIT, EST OFFICE/OUTPATIENT VISIT, EST PREV VISIT, EST, 65 & OVER OFFICE/OUTPATIENT VISIT, EST OFFICE/OUTPATIENT VISIT, EST OFFICE/OUTPATIENT VISIT, EST OFFICE/OUTPATIENT VISIT, EST OFFICE/OUTPATIENT VISIT, EST OFFICE/OUTPATIENT VISIT, EST OFFICE/OUTPATIENT VISIT, EST OFFICE/OUTPATIENT VISIT, EST OFFICE/OUTPATIENT VISIT, NEW Advance Directives Directive Yes / No Effective Date File Name No Information Encounters Encounter Description Practice Location Reason(s) For Visit Diagnoses Date Provider Providers Copied on Encounter OFFICE/OUTPA TIENT VISIT, EST [facility], [address] [place], [place], [id number], [place] tel:[phone] [facility] headache1 (chief complaint)pelv ic pain1 (chief complaint)podi atry1 (chief complaint) HeadachePelvic painLumbago [address], [address] , [place]. tel:[phone] Referring Provider: Adama Barron [address], [address]. tel:[phone] OFFICE/OUTPA TIENT VISIT, [facility], [address] [employer] [place], [place], [address], [place] tel:[phone] [facility] HTN (chief complaint)GERD 1 (chief complaint)back pain1 (chief complaint)hep c (chief complaint) Essential (primary) hypertensionGER D w/o esophagitisLumb agoDisorder of bone density and structure, unspecified [address], [address], [place], [place], [address] , [place]. tel:[phone] Referring Provider: Terence Malik, [address], [place], [place], [address]. tel:[phone] [facility], [address], [place], [place], [address], [place] tel:[phone] [facility] No Information [address], [address], [place], [place], [address] , [place]. tel:[phone] OFFICE/OUTPA TIENT VISIT, [facility], [address], [place], [place], [address], [place] [phone] [facility] GERD1 (chief complaint)HCTZ (chief complaint)pain 1 (chief complaint)oste openia1 (chief complaint) GERD w/o esophagitisEsse ntial (primary) hypertensionChr onic pain syndromeDisorde r of bone density and structure, unspecified [address], [address], [place], [place], [address] , [place]. tel:[phone] Referring Provider: Adama Barron [address], [place], [place], [address]. tel:[phone] OFFICE/OUTPA TIENT VISIT, [facility], [address], [place], [place], [address], [place] tel:[phone] [facility] thyroid1 (chief complaint)DM (chief complaint)HLP (chief complaint)arm pain1 (chief complaint) HypothyroidismT ype 2 diabetes mellitus without complicationsHy perlipidemiaPai n in left upper arm [address], [address], [place], [place], [address] , [place]. tel:[phone] Referring Provider: Adama Barron [address], [place], [place], [address]. tel:[phone] PREV VISIT, EST, 65 & OVER [facility], [address], [place], [place], [address], [place] tel:[phone] [facility] Medicine axillary (chief complaint)HTN (chief complaint)GERD 1 (chief complaint)slee p apnea (chief complaint)PHys ical (chief complaint) COPDChronic pain syndromeEssenti al (primary) hypertensionLym phadenopathyEnc ntr for general adult medical exam w/o abnormal findingsEncount er for general adult medical exam w abnormal findings [address], [address], [place], [place], [address] , [place]. tel:[phone] Referring Provider: Adama Barron [address], [place], [place], [address]. tel:[phone] OFFICE/OUTPA TIENT VISIT, [facility], [address], [place], [place], [address], [place] tel:[phone] [facility] hemorrhoid (chief complaint)hypo thyroidism (chief complaint)pre DM (chief complaint)precision devices inspector/tester genia pain (chief complaint) Metabolic syndromeHypothy roidismChronic pain syndrome [address], [address], [place], [place], [address] , [place]. tel:[phone] Referring Provider: Adama Barron [address], [place], [place], [address]. tel:[phone] OFFICE/OUTPA TIENT VISIT, [facility], [address], [place], [place], [address], [place] [phone] [facility] Medicine GERD1 (chief complaint)hypo thyroidism (chief complaint)HTN (chief complaint)COPD (chief complaint)shira st nodule (chief complaint) Essential (primary) hypertensionHyp othyroidismGERD w/o esophagitisCOPD Nov-0 [address], [address], [place], [place], [address] , [place]. tel:[phone] Referring Provider: Adama Barron [address], [place], [place], [address]. tel:[phone] OFFICE/OUTPA TIENT VISIT, [facility], [address], [place], [place], [address], [place] tel:[phone] [facility] Metabolic (chief complaint)GERD (chief complaint)HTN (chief complaint)back pain (chief complaint) Unspecified essential hypertensionUns pecified hypothyroidismE sophageal refluxMetabolic syndromeDietary surveillance and counseling May- [address], [address], [place], [place], [address] , [place]. [phone] Referring Provider: Adama Barron [address] [facility] [address], [place], [place], [address]. tel:[phone] OFFICE/OUTPA TIENT VISIT, [facility], [address] [place], [address], [place] tel:[phone] [facility] DM (chief complaint)HTN (chief complaint)oste openia (chief complaint)precision devices inspector/tester genia pain (chief complaint) Dietary surveillance and counselingMetab olic syndrome XDisorder of bone and cartilage, unspecifiedUnsp ecified essential hypertension May-0 [address], [address], [place], [place], [address] , [place]. [phone] Referring Provider: Adama Barron [facility] [address], [place], [place], [address]. tel:[phone] OFFICE/OUTPA TIENT VISIT, [facility], [address], [place], [place], [address], [place] tel:[phone] [facility] hyperglycemia (chief complaint)HLP (chief complaint)leatha turia (chief complaint)oste openia (chief complaint)HTN (chief complaint) Dietary surveillance and counselingHyper glycemiaHematur iaOther and unspecified hyperlipidemiaO steopenia Apr- 5 [address], [place], [place], [address] , [place]. [phone] Referring Provider: Adama Barron [address], [place], [place], [address]. tel:[phone] OFFICE/OUTPA TIENT VISIT, [facility], [address] [employer] [place], [place], [address], tel:[phone] [facility] HTN (chief complaint)COPD (chief complaint)GERD (chief complaint)hypo thyroidism (chief complaint)precision devices inspector/tester genia pain (chief complaint) Dietary surveillance and counselingEsoph ageal refluxUnspecifi ed hypothyroidismU nspecified essential hypertensionChr onic airway obstruction, not elsewhere classified [address] [facility] [address], [place], [place], [address] , [place]. tel:[phone] Referring Provider: Terence Malik, [address] [facility] [address], [place], [place], [address]. tel:[phone] OFFICE/OUTPA TIENT VISIT, [facility], [address] [place] [address] [employer] [place], [address], [place] tel:[phone] [facility] osteopenia (chief complaint)thyr oid noudle (chief complaint)GERD (chief complaint)HLP (chief complaint)calderon mi D (chief complaint) Dietary surveillance and counselingDisor kim of bone and cartilage, unspecifiedOthe r and unspecified hyperlipidemiaG ERDHypothyroidi sm [address], [address], [place], [place], [address] , [place]. tel:[phone] Referring Provider: Adama Barron [address], [place], [place], [address]. tel:[phone] OFFICE/OUTPA TIENT VISIT, [facility], [address] [place] [address] [employer] [place], [address], [place] tel:[phone] [facility] COPD (chief complaint)HTN (chief complaint)GERD (chief complaint)Hypo thyroidism (chief complaint)back pain (chief complaint) Dietary surveillance and counselingCOPDH ypertension, UnspecifiedHypo thyroidismGERD [address], [address], [place], [place], [address] , [place]. [phone] Family History Family Member Type Diagnosis Age At Onset Brother Problem (finding) Alive and well Father Problem (finding) Hypertension Father Problem (finding) Coronary artery disease Mother Problem (finding) Leukemia Payers Payer name Insurance type Covered libertarian ID Authoriza tion(s) No Information Social History Type Description Quantity Date Captured Comments Alcohol Use Details Caffeine Use Details Unknown Tobacco Use Status Non-smoker Smoking Status Former smoker Sex Female Vital Signs Date / Time: Height Weight BMI Pulse Rate Blood Pressure Temperature Respiratory Rate Body Surface Area Head Circumference BMI percentile Pulse Ox Inhaled Ox 11:46 AM 167.64 cm 247.40 lbs 39.9 3 kg/m eter (2) 61 /min 135/80 mm[Hg] 97.0 F 16 /min Chief Complaint And Reason For Visit From encounter dated '02/25/2017 10:45'. headache1 (chief complaint). Description: Pt states that she has history of vague intermittent headache and she cc/o acute onset of severe headache on right side with throbbing headache with nausea but no photophobia. Pt states that it occures last week x 3 days. Pt denies any head injury. Pt states that she never had the headache that severe in the past. Pt took ultram which helped. Pt denies any headache now. pelvic pain1 (chief complaint). Description: Pt c/o new onset of low pelvic pain for several monthsPt feels like crampy pain. Pt denies any vaginal bleeding Pt feels sharp pain. Pt is postmeno. Pt denie any acute pain. Pt states that pain comes and goes. Pt has regular bm. Pt denies any blood in stool or diarrhea. Pt denies any UTI symptoms podiatry1 (chief complaint). Description: Pt was told by PT that she need to see podiatry due to uneven leg length and she needs to get insole to help her stay balanced to avoid back pain Plan Of Treatment Date Type Action Status Referral Ordered: Podiatry (related to Lumbago) ordered Referral Ordered: Referrals: Podiatry. Evaluate and treat ordered Referral Ordered: US, PELVIC (NONOBSTETRIC); ordered Referral Ordered: Pain Medicine (related to Lumbago) ordered Referral Ordered: Referrals: Pain Medicine. Evaluate and treat ordered Referral Ordered: DXA BONE DENSITY, AXIAL ordered Referral Ordered: Cardiology (related to Pain in left upper arm) ordered Referral Ordered: Referrals: Cardiology ordered Referral Ordered: Pulmonology (related to COPD) ordered Referral Ordered: Referrals: Pulmonology. Evaluate and treat ordered Referral Ordered: Jane Morrison (related to Metabolic syndrome) ordered Referral Referred To: Jane Morrison [facility] [facility]
[address] [place], [place], [id number] Ordered: Referrals: Jane Morrison. Evaluate and treat ordered Referral Ordered: COLONOSCOPY AND BIOPSY ordered Referral Ordered: US THYROID ordered Referral Ordered: MAMMOGRAM, SCREENING ordered History Of Present Illness Encounter Date Complaint History Of Prese nt Illness headache1 Pt states that s he has history of vague intermittent headache and she cc/o acute onset of severe headache on right side with throbbing headache with nausea but no photophobia. Pt states that it occures last week x 3 days. Pt denies any head injury. Pt states that she never had the headache that severe in the past. Pt took ultram which helped. Pt denies any headache now. pelvic pain1 Pt c/o new onset of low pelvic pain for several months Pt feels like crampy pain. Pt denies any vaginal bleeding Pt feels sharp pain. Pt is postmeno. Pt denie any acute pain. Pt states that pain comes and goes. Pt has regular bm. Pt denies any blood in stool or diarrhea. Pt denies any UTI symptoms podiatry1 Pt was told by Khushi Barth that she need to see podiatry due to uneven leg length and she needs to get insole to help her stay balanced to avoid back pain HTN Pt has HTN. Pt t akes toprol and norvasc, and lisinoril and HCTZ. Her BP is stable. Pt denies any chest pain or headache GERD1 Pt has GERD wiho ut zabala pt takes omeprazole PRN only back pain1 Pt has chronic l ow back pain. Pt denies any loss of bowel or bladder control Pt denies any worsening adiel. hep c Pt needs one tanisha e hep c screening Pt does not use iv drug GERD1 Pt has chronic G ERD Pt takes omeprazole and doing ok. Pt denies any worsenign symptoms HCTZ Pt atkes norvsC, TOPROL AND LISINOPRIL and her BP is stable. Pt needs refill on HCZ. Pt states that she is out of HCZ pain1 Pt has low back and knee pain. Pt takes ultram PRN and doing ok. Pt denies any worsenign adiel osteopenia1 Pt atkes calcium and vitmain D and is trying weight bearing exercise. Pt denies any fx thyroid1 Pt has high thyr oid. Pt denies any chest pain. Pt is on 137 mcg of synthroid. DM Pt unable to jennifer e metformin. Pt is not on anything. Her A1c is 6.3. Pt states that her morning BG is around 99. Pt denies any polyuria polydipsia HLP Pt has HLP .Pt d oes not want to take meds arm pain1 Pt states that s he has rather severe left arm pain last pain Pt denies any chest pain .Pt denies any SOB Pt denies any diaphoresis. Pt states that left arm pain resolved. PT states that the pain was sharp and last all night and was sharp. Pt denie any radiatoin of pain down to left arm axillary Pt c/o lymphnode swelling bilateral axillary area for several months Pt notices some pain. Pt denies any fever, chilll HTN Pt takes toprol, norvasc, lisinopril and hcTZ. Her PB Is stable GERD1 Pt has gERd with esophagitis but no balwinder per pt Pt takes omerpzole. Pt denies any GERD or abd pain sleep apnea Relevant history : a BMI of 40.19. Additional information: Pt has sleep apnea Pt has CPAP but she does not know the setting so she does not use cpap at all. Pt has insomnia and fatigue. PHysical Pt needs annual physical Pt sees Dr morrison and she takes metofrmin and synthroid. Pt has HTn and she takes norvasc, lisinoprilm, hctz and toprol. Her BP is stable. Pt has chornic back and knee pain. Pt takes ultram PRN for pain. Pt has GERD with esophagitis. Pt takes omeprzole Pt denies any abd pain. Pt denies any other complaints hemorrhoid hypothyroidism Pt takes synthro id. Pt had benign thryoid ultrasound. Pt wants to sees Dr. morrison. Pt just wants 2nd opinion pre DM Pt is prediabeti c. Pt unable to tolerate metformin Pt denies any polyuria, polydipsia. Pt wants to see dr. morrison Pt denies any polyuria,polydipsia chronic pain Pt has chronic k nee pain. Pt takes ultram for pain Pt denies any worsening pain. Pt wants a prescription walker. Sometimes she needs rest after walking for a while GERD1 Pt has GERD and she takes omeprazole. Pt states that she has GERD without omerpazole. Pt denies any abd pain hypothyroidism Pt takes synthro id. Pt needs refill Pt has history of benign thyroid nodule HTN Pt takse lisinor ip,l norvasc and HCTZ and toprol. Her BP is stable. Pt denies any chest pain or headache COPD Pt has COPD. Pt does not smoke. Pt takes advair and also albuteorl neb. Pt uses neb several times per week. Pt denies any acute SOB breast nodule Pt c/o breast no dule left breast but no pain for several months. Pt denies any right breast issue. Pt denie sany nipple discharge Metabolic Pt has metabolic syndrome. Pt supooses to start metformin but has not yet. Pt is traveling to [place] tomorrow and she does not want to have diarrhea while traviling. Pt states that she will try to start metformin once arriving to [place] GERD Additional infor mation:Pt takes omeprazole. Pt doing ok. Pt denies any abd pain or any GERd symptoms. Pt denies any nauea, vomiting. HTN Pt takes norvasc , lisinopril, H TZ and toprol. She has been taking norvasc 10 mg and her BP is better today. Pt denies any dizziness, water retention, chest pain back pain Additional infor mation: Pt has chronic low back and knee pain. Pt takes ultram for pain. Pt failed NSAID. Pt has 5/10 pain daily. Pt has some scaitica but no numbness. Pt denies any loss of bowel or bladder control. Pt denies any knee swelling. DM Pt is borderline diabetic. Her A1c is 6.3. Pt denies any polyuria, polydipsia HTN Pt takes norvasc and lisinopril and toprol. Her BP is high today. Pt denies any chest pain or headache osteopenia Additional infor mation: Pt has osteopenia. Pt does not want to try fosamax at this point, Pt is taking calcium and vitamin D and weight bearing exercise. chronic pain Pt has chronic b ack and knee pain. Pt has mild sciatica down to both hip. Pt denies any worsenign apin. Pt denies any loss of bowel or bladder control hyperglycemia Pt has mild hype rglycemia Pt denies any polyuria, polydiipsia. HLP Pt has HLP. Pt i s not any special diet hematuria Pt denies any UT I symptoms. Pt has mild hematuria. osteopenia Additional infor mation: Pt has low vitamin D and also osteopenia. Pt deferred fosamax in the past. HTN Pt ussually take s lisinoril, norvasc, HCT and toprol in AM. Pt missed her dose today. Her BP is high today. Pt denies any chest pain or headache HTN Pt takes toprol, norvasc and lisinopril for HTN. [place] and needs refills. Her BP is ok. Pt has been getting meds in [place] until now. Pt denies any chest pain or headache COPD Pt still smoking . Pt uses advair and also alb neb, Pt denies any worsening SOB hypothyroidism Pt takes synthro id. Pt doing ok. Pt denies any fatigue, weight gain, palpitation chronic pain Pt has chronic l ow back and knee pain. Pt denies any loss of bowel or bladder control. Pt denies any sciatica. Pt denies any worsening pain GERD Associated sympt oms include back pain, dyspnea and heartburn. Pertinent negatives include constipation, diarrhea, fever, hematuria, rash, vaginal discharge, vomiting, weight gain and weight loss.Additional information:Pt takes omeprzole and doing ok. Pt denies any GERd symptoms. Pt denies any abd pain. Instructions Date Instruction Additional Infor andrea Prescribed Diet Educ ation/Lifestyle Education Regarding Diet Related to Dietary Surveillance and Counseling Prescribed Activity and Exercise Education Related to Dietary Surveillance and Counseling Prescribed Diet Educ ation/Lifestyle Education Regarding Diet Related to Dietary Surveillance and Counseling Prescribed Activity and Exercise Education Related to Dietary Surveillance and Counseling Prescribed Diet Educ ation/Lifestyle Education Regarding Diet Related to Dietary Surveillance and Counseling Prescribed Activity and Exercise Education Related to Dietary Surveillance and Counseling Prescribed Activity and Exercise Education Related to Dietary Surveillance and Counseling Prescribed Diet Educ ation/Lifestyle Education Regarding Diet Related to Dietary Surveillance and Counseling Prescribed Diet Educ ation/Lifestyle Education Regarding Diet Related to Dietary Surveillance and Counseling Prescribed Activity and Exercise Education Related to Dietary Surveillance and Counseling Prescribed Activity and Exercise Education Related to Dietary Surveillance and Counseling Prescribed Diet Educ ation/Lifestyle Education Regarding Diet Related to Dietary Surveillance and Counseling Prescribed Diet Educ ation/Lifestyle Education Regarding Diet Related to Dietary Surveillance and Counseling Prescribed Activity and Exercise Education Related to Dietary Surveillance and Counseling Prescribed Activity and Exercise Education Related to Dietary Surveillance and Counseling Prescribed Diet Educ ation/Lifestyle Education Regarding Diet Related to Dietary Surveillance and Counseling Prescribed Diet Educ ation/Lifestyle Education Regarding Diet Related to Dietary Surveillance and Counseling Prescribed Activity and Exercise Education Related to Dietary Surveillance and Counseling Prescribed Activity and Exercise Education Related to Dietary Surveillance and Counseling Prescribed Diet Educ ation/Lifestyle Education Regarding Diet Related to Dietary Surveillance and Counseling Prescribed Diet Educ ation/Lifestyle Education Regarding Diet Related to Dietary Surveillance and Counseling Prescribed Activity and Exercise Education Related to Dietary Surveillance and Counseling Dietary counseling Related to Di etary surveillance counseling Decrease caloric intake Related to Dietary surveillance counseling Dietary counseling Related to Di etary surveillance counseling Decrease caloric intake Related to Dietary surveillance counseling Assessments Type Assessment Date assessment Headache assessment Pelvic pain assessment Lumbago Mental Status Date Cognitive Assessment Orientation - [place] ed to time, place, person, situation.
[2025-02-08 14:08] LABS: Basophils Absolute Auto 0.1 K/mm3 (0.0-0.1); Basophils Percent Auto 0.5 % (0.2-1.2); Eosinophils Percent Auto 0.1 % (0-4.4); Hematocrit 42.8 % (37.0-47.0); Hemoglobin 14.2 g/dL (12.0-15.0); Immature Granulocyte Absolute 0.45 K/mm3 (0.00-0.031); Immature Granulocyte Percent A 2.9 % (0-0.5); Lymphocytes Absolute Auto 1.14 K/mm3 (0.9-3.2); Lymphocytes Percent Auto 7.4 % (18.3-44.2); Mean Corpuscular HGB Conc 33.2 g/dl (32-36); Mean Corpuscular Hemoglobin 31.4 pg (26-34); Mean Corpuscular Volume 94.7 fl (80-100); Monocytes Absolute Auto 0.4 K/mm3 (0.1-0.6); Monocytes Percent Auto 2.3 % (2.6-8.5); Neutrophils Absolute Auto 13.5 K/mm3 (1.3-6.7); Neutrophils Percent Auto 86.8 % (45.5-73.1); Platelet Count Result 318 k/mm3 (150-375); Red Blood Count 4.52 M/mm3 (4.2-5.4); Red Cell Distribution Width 12.7 % (11.5-14.5); White Blood Count 15.5 K/mm3 (4.5-10.0)
--- NOTE | 2025-02-08 14:14 | ECG_ITS ---
Test Date: 2025-02-08 14:55:40 Measurements Intervals [place] Rate: 111 P: 0 RI: 0 QRS: -6 QRSD: 96 T: 209 QT: 288 QTc: 393 Interpretive Statements ATRIAL FIBRILLATION WITH RAPID VENTRICULAR RESPONSE DELAYED PRECORDIAL R/S TRANSITION LEFT VENTRICULAR HYPERTROPHY WITH ST-T CHANGE CONSIDER INFERIOR INFARCT, AGE INDETERMINATE ST-T WAVE ABNORMALITY IN ANTEROLATERAL LEADS- CONSIDER ISCHEMIA ABNORMAL ECG No previous ECG available for comparison Electronically Signed On 02-08-2025 14:59:08 CDT by Beck Lopez D.O.
[2025-02-08 14:33] LABS: Prothrombin Time 13.6 Seconds (11.1-14.7)
[2025-02-08] MEDS: METOCLOPRAMIDE HCL INJ 10 MG/2 ML VIAL IV PUSH (14:38)
[2025-02-08] MEDS: MORPHINE SULFATE (*CRX) 4 MG/ML INJ IV PUSH (14:38)
[2025-02-08 14:51] LABS: Add Urine Microscopic? YES; Appearance Urine Clear (Clear); Bacteria Urine None Seen /hpf; Bilirubin Urine Negative (Negative); Blood Urine Negative (Negative); Color Urine Yellow (Yellow); Glucose Urine UA Trace mg/dL (Negative); Ketones Urine 1+ mg/dL (Negative); Leukocyte Esterase Ur Negative LEU/UL (Negative); Nitrate Urine Negative (Negative); Non Pathogenic Casts 0-2; Protein Urine 2+ mg/dL (Negative); Specific Grav Ur 1.013 (1.001-1.035); Squamous Epithelial Cell Urine None Seen /hpf (Few); Urobilinogen Urine 0.2 mg/dL (<2.0); WBC Urine 0-5 /hpf (0-3)
[2025-02-08 15:01] LABS: Alanine Aminotransferase 28 U/L (6-35); Albumin Level 4.8 g/dL (3.5-5.1); Alkaline Phosphatase 117 U/L (38-126); Anion Gap 12 mmol/L (4-12); Aspartate Amino Transferase 30 U/L (14-36); Bilirubin,Total 0.9 mg/dL (0.2-1.3); Blood Urea Nitrogen 10 mg/dL (7-17); Calcium 9.2 mg/dL (8.4-10.2); Carbon Dioxide 23 mmol/L (22-30); Chloride 102 mmol/L (98-107); Estimated CRCL calculation 94 ml/min; Estimated Glomerular Filt Rate > 60; Glucose 182 mg/dL (65-110); Lipase 39 U/L (23-300); Magnesium 1.8 mg/dL (1.6-2.3); Potassium 3.2 mmol/L (3.4-5.0); Sodium 137 mmol/L (137-145); Total Protein 8.2 g/dL (6.3-8.2)
[2025-02-08 15:14] LABS: NT Pro B Type Natriuretic Pept 599 pg/mL (19.9-100); Troponin I < 0.012 ng/mL (0.000-0.034)
[2025-02-08] MEDS: POTASSIUM CHLORIDE 20 MEQ PACKET (FOR LIQUID) 40 MEQ PO (17:26)
--- NOTE | 2025-02-08 17:29 | ECG_ITS ---
Test Date: 2025-02-08 17:50:52 Measurements Intervals [place] Rate: 59 P: 4 UT: 158 QRS: -3 QRSD: 96 T: -21 QT: 429 QTc: 427 Interpretive Statements SINUS BRADYCARDIA DELAYED PRECORDIAL R/S TRANSITION LEFT VENTRICULAR HYPERTROPHY WITH ST-T CHANGE ST-T WAVE ABNORMALITY IN ANT/INF LEADS- CONSIDER ISCHEMIA ABNORMAL ECG Compared to ECG 02/08/2025 14:55:40 Atrial fibrillation no longer present Electronically Signed On 02-08-2025 19:59:00 CDT by Beck Lopez D.O.
[2025-02-08] MEDS: HEPARIN SODIUM 5,000 UNITS/ML VIAL 6000 UNITS IV PUSH (18:42)
[2025-02-08] MEDS: HEPARIN SOD/D5W 100 UNITS/ML 25,000 UNITS/250 ML BAG 14 UNITS IV CONT (18:43)
[2025-02-08 19:24] LABS: Troponin I < 0.012 ng/mL (0.000-0.034)
--- NOTE | 2025-02-08 20:52 | PM.IMHP ---
H&P: HPI History of Present Illness Date/Time: 02/08/25 20:52 Chief Complaint: Nausea/vomiting, epigastric pain, new A-fib RVR, possible new CHF (leg swelling and cardiomegaly) Narrative: This is a 74 year old female patient who is admitted for new onset atrial fibrillation with RVR s/p spontaneous conversion back to sinus rhythm along with a few other concerns including possible new onset CHF, gallstones with prolonged nausea/vomiting/epigastric pain. She presented to the hospital due to severe abdominal pain and persistent vomiting that began after eating a turkey sandwich with tomato, mayonnaise, and guacamole (avocado) last night. She vomited throughout the night and todday, was unable to sleep, and experienced significant pain, which led her to call an ambulance. In the ER, she received morphine and Reglan, which provided some relief after Zofran was ineffective. She has not taken any other medications since yesterday, except for her morning dose of levothyroxine, which she states she may have vomited. She also reports a history of asthma, for which she uses inhalers only as needed, and uses CPAP for sleep apnea. She did not use her inhaler today. RN placed patient on oxygen on arrival to the IMU for dyspnea which she states is helping greatly. She said she probably would not use CPAP tonight because the oxygen is helping her a lot. She has noticed swelling and pain in her legs for the past three months, which is new and concerning to her. She is diabetic and is worried about the cause of the swelling. She showed a photo of the swelling which was very significant in appearance and has a follow-up appointment next month with new PCP. She has a history of hypertension and is on amlodipine and HCTZ, which may be contributing to the leg swelling and hypokalemia. Chest x-ray shows cardiomegaly and labs with elevated BNP 599. She reports intermittent left rib pain associated with movement and RUQ abdominal/back pain with movement and palpation. She has a history of colon polyps (removed 20 years ago), and recent imaging (CT scan) revealed two masses in her liver, which could be tumors or arteriovenous in nature. She has osteoporosis and is scheduled for a bone scan and mammogram in April. She reports her Primary Care Provider moved to [place] so she just established with a new provider who works for [employer] but sees patients in [place]. She lives alone in [place] and has family (nieces and nephews) nearby, but no children. She also has a history of knee replacement and an abdominal hernia. She has also had colon polyps removed twice: first time about 20 years ago and again more recently with Dr. Le. She is originally from [place] and speaks limited [place], but uses translation services as needed. She previously lived in [place], [place], where she spoke mostly [place], and finds it challenging to learn [place] at her age, but tries her best. She experiences chronic insomnia and uses zolpidem at night for sleep. She did not sleep last night due to vomiting. She was started on heparin drip due to afib, new onset, and elevated CHADS-VASC score but this will be stopped for possible liver biopsy. Review of Systems Review of Systems: All systems reviewed & are unremarkable except as noted in HPI and below PMFSH Past Medical History Medical History (Updated 02/09/25 @ 00:07 by Max Ford APRN) Type 2 diabetes mellitus Metabolic syndrome Abnormal glucose Hypothyroidism Colon polyp HTN (hypertension) EILEEN (obstructive sleep apnea) Morbid obesity Family History Family History Other Cerebrovascular accident Diabetes mellitus Family history of arthritis Family history of blood dyscrasia Family history of cardiovascular disease Family history of elevated blood lipids Family history of genitourinary disease Family history of hearing loss Family history of migraine headaches Family history of obesity Hypertension Malignant neoplasm of prostate Social History Social History Smoking packs per day: 3 Smoking cigarettes per day: 60.0 Smoking status: Former smoker Tobacco type: cigarettes Alcohol intake: current Living arrangements: alone Spiritual care concerns: No Meds Home Medications and Allergies Home Medications ?Medication ?Instructions ?Recorded ?Confirmed ?Type amlodipine 10 mg tablet 10 mg PO DAILY 05/25/24 02/08/25 History atorvastatin 20 mg tablet 20 mg PO DAILY 05/25/24 02/08/25 History clobetasol 0.05 % topical cream 1 applic topical DAILY PRN Itching 05/25/24 02/08/25 History dulaglutide 0.75 mg/0.5 mL 0.75 mg subcut WEEKLY 05/25/24 02/08/25 History subcutaneous pen injector ([facility]) ergocalciferol (vitamin D2) 1,250 1,250 mcg PO WEEKLY 05/25/24 02/08/25 History mcg (50,000 unit) capsule famotidine 20 mg tablet 20 mg PO DAILY 05/25/24 02/08/25 History fluticasone propionate 50 50 mcg intranasal DAILY 05/25/24 02/08/25 History mcg/actuation nasal spray,suspension levothyroxine 112 mcg tablet 112 mcg PO DAILY 05/25/24 02/08/25 History metformin 500 mg tablet,extended 500 mg PO BID 05/25/24 02/08/25 History release 24 hr metoprolol succinate 100 mg 100 mg PO DAILY 05/25/24 02/08/25 History tablet,extended release 24 hr zolpidem 5 mg tablet 5 mg PO QHS 05/25/24 02/08/25 History Calcium Adult 1 tab-cap PO DAILY 06/13/24 02/08/25 History Vitamin B-6 1 tab-cap PO DAILY 06/13/24 02/08/25 History Vitamin C 1 tab-cap PO DAILY 06/13/24 02/08/25 History albuterol 90 mcg/actuation aerosol 90 mcg inhalation DAILY PRN SOB 06/13/24 02/08/25 History inhaler hydrochlorothiazide 25 mg tablet 25 mg PO DAILY 06/13/24 02/08/25 History umeclidinium 62.5 mcg-vilanterol 1 inh inhalation DAILY 06/13/24 02/08/25 History 25 mcg/actuation powdr for inhalation (Anoro Ellipta) zinc 1 tab-cap PO DAILY 06/13/24 02/08/25 History Allergies Allergy/AdvReac Type Severity Reaction Status Date / Time aspirin Allergy Unknown BLEEDING Verified 02/08/25 13:59 lisinopril Allergy Unknown Swelling Verified 02/08/25 13:59 Vital Signs Vital Signs - 24 hr 02/08/25 13:20 02/08/25 13:43 02/08/25 14:51 Temperature 36.4 C 36.4 C Pulse Rate 98 112 H Respiratory Rate 20 20 Blood Pressure 157/70 H 157/70 H Pulse Oximetry 97 100 97 Oxygen Delivery Room Air Nasal Cannula Oxygen Flow Rate 3 02/08/25 15:00 02/08/25 15:01 02/08/25 15:41 Temperature Pulse Rate 62 62 Respiratory Rate 19 15 Blood Pressure 148/85 H 134/68 Pulse Oximetry 97 94 97 Oxygen Delivery Room Air Oxygen Flow Rate 02/08/25 15:45 02/08/25 16:45 02/08/25 17:21 Temperature Pulse Rate 64 60 Respiratory Rate 14 15 Blood Pressure 132/69 149/82 H Pulse Oximetry 96 98 94 Oxygen Delivery Room Air Oxygen Flow Rate 02/08/25 18:01 02/08/25 18:02 02/08/25 18:25 Temperature Pulse Rate 64 61 63 Respiratory Rate 15 14 21 H Blood Pressure 158/73 H Pulse Oximetry 90 90 95 Oxygen Delivery Oxygen Flow Rate 02/08/25 18:30 02/08/25 18:45 02/08/25 18:46 Temperature Pulse Rate 68 63 64 Respiratory Rate 20 15 15 Blood Pressure 141/65 H Pulse Oximetry 97 95 Oxygen Delivery Oxygen Flow Rate 02/08/25 19:00 02/08/25 19:23 02/08/25 19:31 Temperature Pulse Rate 67 73 63 Respiratory Rate 16 17 16 Blood Pressure Pulse Oximetry 95 98 97 Oxygen Delivery Oxygen Flow Rate 02/08/25 19:50 02/08/25 20:05 02/08/25 20:15 Temperature Pulse Rate 61 68 65 Respiratory Rate 20 17 16 Blood Pressure Pulse Oximetry 98 97 97 Oxygen Delivery Oxygen Flow Rate 02/08/25 20:16 02/08/25 20:30 Temperature Pulse Rate 65 63 Respiratory Rate 17 16 Blood Pressure 138/67 Pulse Oximetry 98 96 Oxygen Delivery Oxygen Flow Rate Exam Narrative: GENERAL: Awake, alert, oriented, no acute distress HEAD: Normocephalic, atraumatic. EYES: EOMI. ENT: Nares clear, no rhinorrhea or epistaxis. Mucous membranes moist. NECK: Supple. CHEST: Clear to auscultation. No respiratory distress. Point tenderness to left lateral rib cage with movement/palpation HEART: Regular rate and rhythm. Normal peripheral pulses. ABDOMEN: Right upper flank tender to point palpation or with movement, RUQ/epigastric tender to palpation without rebound or guarding EXTREMITIES: Normal range of motion. 2+ edema bilateral lower extremities SKIN: Warm, dry, no rash. NEURO: No focal deficits. Alert and oriented x3 H&P: Results Labs Labs: Short CBC 02/08/25 Range/Units 14:00 WBC 15.5 H (4.5-10.0) K/mm3 Hgb 14.2 (12.0-15.0) g/dL Hct 42.8 (37.0-47.0) % Plt Count 318 (150-375) k/mm3 BMP 02/08/25 14:37 Sodium 137 Potassium 3.2 L Chloride 102 Carbon Dioxide 23 BUN 10 Creatinine 0.53 L Glucose 182 H Calcium 9.2 Cardiac Enzymes 02/08/25 02/08/25 Range/Units 14:37 18:34 Troponin I < 0.012 < 0.012 (0.000-0.034) ng/mL Liver Function 02/08/25 Range/Units 14:37 Total Bilirubin 0.9 (0.2-1.3) mg/dL AST 30 (14-36) U/L ALT 28 (6-35) U/L Alkaline Phosphatase 117 (38-126) U/L Albumin 4.8 (3.5-5.1) g/dL Urine 02/08/25 Range/Units 14:37 Urine Color Yellow (Yellow) Urine Appearance Clear (Clear) Urine pH 8.0 (5.0-9.0) Ur Specific [place] 1.013 (1.001-1.035) Urine Protein 2+ H (Negative) mg/dL Urine Glucose (UA) Trace H (Negative) mg/dL ECG Attestation: I personally reviewed and interpreted this ECG as follows: ECG completion date: 02/08/25 ECG completion time: 14:55 Prior ECG tracings: not available for review Interpretation: Atrial fibrillation with rapid ventricular rate, rate 111, QRS duration 96, QTC 393, QRS axis -6?, mild ST segment depression in V4 V5 Lead 1 and Lead [address] scan - abdomen: Radiologist's impression: CTA chest abdomen pelvis Ordering provider: Citlalli Grimm PA-C History: 74 years Female with . chest pain, abd pain . Comparison: None. Technique: CT chest with IV contrast. CT abdomen and pelvis CT abdomen and pelvis with IV and with oral contrast. Radiation reduction technique utilized The dose-length product was 1840.39 mGy-cm. 100 mL Omnipaque 350 was given IV. FINDINGS: CHEST: --VISUALIZED THORACIC INLET: Normal. --MEDIASTINUM: Aorta/coronary arteries: Mild atheromatous disease. Heart/other: The heart is slightly enlarged. Lymph nodes: No mediastinal or hilar adenopathy. --LUNGS: No pulmonary nodules or masses. No infiltrates or effusions. No pneumothorax. Dependent atelectatic changes. --MUSCULOSKELETAL: Soft tissues: The superficial soft tissues are normal. Bones: Age appropriate degenerative changes of the spine. ABDOMEN/PELVIS: --MUSCULOSKELETAL: Bones: Age appropriate degenerative changes of the spine. No suspicious bony lytic or sclerotic lesions. Superficial soft tissues: The superficial soft tissues are normal. --UPPER ABDOMINAL ORGANS: Liver: 9 mm enhancing lesions seen in the left lobe of the liver which may be HCC versus arteriovenous shunting. Follow-up advised. Another focal infiltrate is also seen in the subcapsular area of the right lobe measuring 1.3 cm. Follow-up advised. Filling defect in the portal vein versus mixing of blood with contrast is seen. Clinical correlation and if clinically warranted ultrasound evaluation advised. Gallbladder: Cholelithiasis. Spleen: Normal. Small hypodensity suggestive of a cyst is seen in the inferior portion of the spleen. Stomach/duodenum: Thickened lower esophagus suggestive of reflux esophagitis. Pancreas: Normal. Slightly prominent pancreatic duct. Adrenals: Normal. Kidneys: Right kidney lower pole cyst is seen measuring 1.6 cm. --PELVIC ORGANS: The bladder shows slightly thickened wall may indicate cystitis. Clinical correlation advised. No bladder stones. --BOWEL AND MESENTERY: Colon: Mild diverticulosis without diverticulitis sigmoid colon. Slightly thickened wall of the sigmoid colon which may indicate colitis. Follow-up advised. Normal appendix. Small Bowel: Normal. No obstruction. Peritoneum/mesentery: No free air or free fluid. No mesenteric lymphadenopathy. --RETROPERITONEUM: Mild atheromatous disease of the abdominal aorta. No retroperitoneal lymphadenopathy. IMPRESSION: CHEST: 1. No pulmonary embolism. 2. No acute cardiopulmonary pathology. ABDOMEN/PELVIS: 1. No enhancing lesions in the liver. Differential include hepatocellular carcinoma versus arteriovenous shunting. Follow-up advised. 2. Filling defect in the portal vein which may be mixing of blood with contrast. Thrombus is less likely although cannot be excluded. Clinical correlation and if warranted ultrasound is advised. 3. Cholelithiasis. 4. Slight thickening of the wall of the sigmoid colon which may indicate colitis. Follow-up advised. 5. Thickened lower esophagus which may indicate reflux esophagitis. Reviewed, dictated and finalized at location A. US - abdomen: Radiologist's impression: US retroperitoneal duplex ltd Ordering provider: Citlalli Grimm PA-C History: . abnormal CT . Comparison: None. FINDINGS/impression: No evidence of hepatic or portal vein thrombosis seen. Gallbladder stone. Reviewed, dictated and finalized at location A. Chest x-ray: Radiologist's impression: XR chest 1V portable 02/08/2025 14:28 Indication: Epigastric abdomen pain Procedure: AP portable chest Comparison: 02/08/2019 Findings: Borderline heart size with bibasilar airspace disease. Heart size normal. There is atherosclerosis of the aorta. No pleural effusion or pneumothorax. No acute osseous abnormality. Impression: 1: Bibasilar airspace disease may represent atelectasis, edema or pneumonia. Reviewed, dictated and finalized at location A. Assessment and Plan Assessment and plan (1) New onset a-fib: Code(s): I48.91 - Unspecified atrial fibrillation Status: Acute Assessment and Plan: -Initial EKG a-fib RVR with spontaneous conversion -Potassium 3.2, magnesium 1.8--replaced both, recheck in AM -Heparin drip started due to elevated CHADS-VASC score -CXR with cardiomegaly, BNP mildly high -CT findings of esophagitis, prior GI bleed with aspirin -Rectal exam with occult stool negative (2) Cholelithiases: Qualifiers: Biliary obstruction: without biliary obstruction Cholecystitis presence: without cholecystitis Cholelithiasis location: gallbladder Qualified Code(s): K80.20 - Calculus of gallbladder without cholecystitis without obstruction Code(s): K80.20 - Calculus of gallbladder without cholecystitis without obstruction Status: Acute Assessment and Plan: -Patient describes epigastric pain with unrelenting nausea/vomiting for 24 hours. -Gallstone on CT scan -Will order Ultrasound for tomorrow -PRN pain and nausea medications ordered -NPO after 0300 (3) Hepatic lesion: Code(s): K76.9 - Liver disease, unspecified Status: Acute Assessment and Plan: -Two lesions noted in the liver, possible arteriovenous shunting vs HCC -Will consult IR to see about biopsy -Will stop heparin in order to potentially get biopsy (4) Acute hypokalemia: Code(s): E87.6 - Hypokalemia Status: Acute Assessment and Plan: -Replaced as above, continue to monitor -Likely made worse by HCTZ (5) Type 2 diabetes mellitus: Code(s): E11.9 - Type 2 diabetes mellitus without complications Status: Acute Assessment and Plan: -A1c 5.9, patient takes Trulicity and metformin -Hold home meds, SSI moderate dose -NPO at 0300 for possible biopsy of liver (6) Esophagitis: Code(s): K20.90 - Esophagitis, unspecified without bleeding Status: Acute Assessment and Plan: -Pantoprazole ordered -Prior GI bleed, not current -Imaging finding may be due to profuse vomiting over past 24 hours (7) HTN (hypertension): Code(s): I10 - Essential (primary) hypertension Status: Acute Assessment and Plan: -History of HTN, blood pressure checked -Leg swelling noted, may need to change amlodipine to something else (8) EILEEN (obstructive sleep apnea): Code(s): G47.33 - Obstructive sleep apnea (adult) (pediatric) Status: Acute Assessment and Plan: -Dyspnea noted, oxygen applied by nursing -AutoPap ordered but patient may decline use -She should be encouraged to have someone bring her home CPAP unit if still admitted overnight tomorrow. (9) Hypothyroidism: Code(s): E03.9 - Hypothyroidism, unspecified Status: Acute Assessment and Plan: -Continue home medication -TSH mildly low, Reflex pending (10) Insomnia: Code(s): G47.00 - Insomnia, unspecified Status: Chronic Assessment and Plan: -Hold zolpidem while in hospital -Ordered 0.5 mg alprazolam and 100 mg trazodone QHS for sleep initiation and sleep duration Plan -Cardiology consulted -Echo cardiogram ordered -RUQ US ordered for gallstone, epigastric pain, nausea/vomiting--patient may benefit from General Surgery referral or consult Quality VTE Prophylaxis VTE prophylaxis: mechanical ordered and pharmacologic ordered (heparin (on hold pending possible biopsy and cardiology consult)) Total time spent on this patient 100 minutes Hospitalist MIPS Advance Care Plan I have confirmed that the patient's Advanced Care Plan is present, code status is documented, or surrogate decision maker is listed in patient medical record.: Yes Medication Reconciliation I have utilized all available resources to obtain, update and review the patients current medications (includes all prescriptions, OTC, herbals, cannabis, and nutritional supplements).: Yes
--- NOTE | 2025-02-08 21:28 | ADMGEN ---
This patient, Kimberly Delgado, was admitted to IMU Room 200-01. Patient/family oriented to hospital policies and general routines including ID bracelet, bed and alarms, visiting hours, pain management, procedures, bathroom and other care routines, personal items, smoking policy, room service/diet, and visiting hours. Information on how to activate the Rapid Response Team has been discussed. Patient/Family are encouraged to report perceived risks to care and to ask questions if they do not understand what they are told or what they should do.
[2025-02-08 22:21] LABS: Troponin I < 0.012 ng/mL (0.000-0.034)
[2025-02-08 22:28] LABS: Hemoglobin A1C 5.9 % (<5.7)
[2025-02-08 22:45] LABS: Thyroid Stimulating Hormone Reflex 0.453 uIU/mL (0.465-4.68)
[2025-02-08] MEDS: POTASSIUM CHLORIDE 20 MEQ ER TABLET 40 MEQ PO (22:47)
[2025-02-08] MEDS: MAGNESIUM SULF 1 GM/D5W 100 ML 1 GM/100 ML BAG IVPB (22:47)
[2025-02-08 23:40] LABS: Folic Acid 13.7 ng/mL (2.76->20)
[2025-02-09] VITALS (18 sets, daily range): BP systolic 98–138; BP diastolic 34–74; PULSE 48–90; RESP 16–20; TEMP 36.5–37.2; O2SAT 96–100
--- NOTE | 2025-02-09 | ECHO_ITS ---
Patient Info Name: Kimberly Delgado Age: 74 years : 1950 Gender: Female Ht: 64 in Wt: 250 lbs BSA: 2.32 m2 HR: 90 bpm BP: 131 / 74 mmHg Technical Quality: Good Exam Date: 02/09/2025 9:46 AM Patient Status: I Admit Date: 02/09/2025 Exam Type: CA echo doppler color flow Complete two-dimensional, color flow and Doppler transthoracic echocardiogram is performed with contrast to opacify the left ventricle and to improve the deliniation of the left ventricle endocardial borders. Staff Referring Physician: Sanjay Wolf MD Web Application Developer: Laurie Garcia Attending Provider: Diogo Elise Contrast/Agitated Saline Contrast/Ag. Saline: Definity Amount: 2.00 ml Administered By: Laurie Garcia Existing IV Access: Yes IV Access Condition: patent with no signs of infiltration Summary 1. There is normal biventricular size and systolic function. 2. There are no regional wall motion abnormalities. 3. There are no significant valvular abnormalities. Left Ventricle The left ventricle is normal in size and systolic function. The left ventricular ejection fraction is visually estimated to be 55-60%. Contrast was used to enhance the endocardial borders. There are no regional wall motion abnormalities. Right Ventricle The right ventricle is normal in size and systolic function. Left Atria The left atrium is normal size. Right Atria The right atrium is normal size. Atrial Septum The atrial septum is grossly normal. Aortic Valve The aortic valve is trileaflet and opens well. There is no aortic regurgitation. Pulmonic Valve The pulmonic valve is grossly normal. There is trace pulmonic valve regurgitation. Mitral Valve The mitral valve opens well. There is annular calcification. There is no significant mitral regurgitation. Tricuspid Valve The tricuspid valve is grossly normal. There is mild tricuspid regurgitation. Pericardium/Pleural Pericardium is normal in appearance with no evidence for significant pericardial effusion. Inferior Vena Cava Inferior vena cava is not well visualized. Aorta The aortic root at the level of the sinus of Valsalva measures 3.5 cm in diameter. Left Ventricular Outflow Tract Name Value Normal LVOT 2D LVOT Diameter 2.0 cm LVOT Doppler LVOT Peak Velocity 150 cm/s LVOT Peak Gradient 9 mmHg LVOT Mean Gradient 4 mmHg LVOT VTI 32 cm LVOT VTI/AV VTI Ratio 0.8 LVOT Stroke Volume 104 ml LVOT CO 6.1 l/min LVOT CI 2.6 l/min/m2 Pulmonic Valve Name Value Normal PV Doppler PV Peak Velocity 132 cm/s PV Peak Gradient 7 mmHg PV Regurgitation Doppler NH Peak End Diastolic Velocity 55 cm/s Mitral Valve Name Value Normal MV Regurgitation Doppler MR Peak Gradient 96 mmHg MV Diastolic Function MV E Peak Velocity 96 cm/s MV A Peak Velocity 101 cm/s MV E/A 0.9 MV Decel Time (PW) 245 ms MV Annular TDI MV E/e' (Septal) 9.0 MV E/e' (Lateral) 8.6 MV E/e' (Average) 8.8 Tricuspid Valve Name Value Normal TV Regurgitation Doppler TR Peak Velocity 296 cm/s TR Peak Gradient 35 mmHg Estimated PAP/RSVP RA Pressure 10 mmHg <=5 PA Systolic Pressure 45 mmHg <36 RV Systolic Pressure 45 mmHg <36 TV Annular TDI TV Lateral Alexia s' Velocity 14.9 cm/s >=9.5 Aortic Valve Name Value Normal AV Doppler AV Peak Velocity 195 cm/s AV Peak Gradient 15 mmHg AV Mean Gradient 7 mmHg AV VTI 42 cm AV Area (Cont Eq VTI) 2.5 cm2 >=3.0 AV Area (Cont Eq Carrillo) 2.5 cm2 AV DI (Carrillo) 0.77 AV Regurgitation 2D LVOT Area 3.2 cm2 Ventricles Name Value Normal LV Dimensions 2D/MM LVOT Diameter 2.0 cm LV Fractional Shortening/Ejection Fraction 2D/MM LV Diastolic Volume (4C MOD) 130 ml LV EF (4C MOD) 67 % LV Diastolic Volume (2C MOD) 143 ml LV EF (2C MOD) 58 % LV Diastolic Volume (BP MOD) 142 ml 46-106 LV Diastolic Volume Index (BP MOD) 61 ml/m2 29-61 LV Systolic Volume (BP MOD) 51 ml 14-42 LV Systolic Volume Index (BP MOD) 22 ml/m2 8-24 LV EF (BP MOD) 64 % 54-74 LV Diastolic Length (4C) 7.6 cm LV Systolic Length (4C) 6.5 cm LV Stroke Volume (4C MOD) 87 ml Atria Name Value Normal LA Dimensions LA Volume (4C A-L) 66 ml LA Volume (BP A-L) 72 ml RA Dimensions RA Systolic Major [place] Length (4C) 6.2 cm 2.2-2.8 RA Area (4C) 15.6 cm2 <=18.0 Report Signatures
[2025-02-09] MEDS: traZODone HCL 50 MG TABLET 100 MG PO ×2 (00:02→20:19)
[2025-02-09 00:04] LABS: Iron 69 ug/dL (37-170)
[2025-02-09 00:09] LABS: Percent Iron Saturation 19 % (20-50)
[2025-02-09 00:12] LABS: Free T4 Free Thyroxine Reflex 1.44 ng/dL (0.78-2.19)
[2025-02-09 00:51] LABS: Total Triiodothyronine (T3) 0.96 NG/ML (0.82-1.58)
[2025-02-09 05:28] LABS: Basophils Absolute Auto 0.1 K/mm3 (0.0-0.1); Basophils Percent Auto 0.5 % (0.2-1.2); Eosinophils Absolute Auto 0.2 K/mm3 (0-0.3); Eosinophils Percent Auto 1.2 % (0-4.4); Hematocrit 41.9 % (37.0-47.0); Hemoglobin 13.1 g/dL (12.0-15.0); Immature Granulocyte Absolute 0.04 K/mm3 (0.00-0.031); Immature Granulocyte Percent A 0.3 % (0-0.5); Lymphocytes Absolute Auto 2.76 K/mm3 (0.9-3.2); Lymphocytes Percent Auto 21.4 % (18.3-44.2); Mean Corpuscular HGB Conc 31.3 g/dl (32-36); Mean Corpuscular Volume 99.1 fl (80-100); Mean Platelet Volume 10.7 fl (7.4-10.4); Monocytes Absolute Auto 0.7 K/mm3 (0.1-0.6); Monocytes Percent Auto 5.6 % (2.6-8.5); Neutrophils Absolute Auto 9.1 K/mm3 (1.3-6.7); Platelet Count Result 292 k/mm3 (150-375); Red Blood Count 4.23 M/mm3 (4.2-5.4); Red Cell Distribution Width 13.1 % (11.5-14.5); White Blood Count 12.9 K/mm3 (4.5-10.0)
[2025-02-09 05:41] LABS: INR 1.1; Prothrombin Time 14.2 Seconds (11.1-14.7)
[2025-02-09 05:42] LABS: Partial Thromboplastin Time 26.4 Seconds (22.3-36.8)
[2025-02-09 05:47] LABS: Alanine Aminotransferase 21 U/L (6-35); Albumin Level 4.3 g/dL (3.5-5.1); Alkaline Phosphatase 99 U/L (38-126); Anion Gap 6 mmol/L (4-12); Aspartate Amino Transferase 28 U/L (14-36); Bilirubin,Total 0.7 mg/dL (0.2-1.3); Blood Urea Nitrogen 10 mg/dL (7-17); Calcium 9.3 mg/dL (8.4-10.2); Carbon Dioxide 29 mmol/L (22-30); Chloride 104 mmol/L (98-107); Estimated CRCL calculation 70 ml/min; Estimated Glomerular Filt Rate > 60; Glucose 109 mg/dL (65-110); Magnesium 2.4 mg/dL (1.6-2.3); Potassium 3.5 mmol/L (3.4-5.0); Sodium 139 mmol/L (137-145); Total Protein 7.3 g/dL (6.3-8.2)
[2025-02-09] MEDS: LEVOTHYROXINE SODIUM 112 MCG TABLET PO (06:02)
--- NOTE | 2025-02-09 07:53 | PM.CNCAR ---
Assessment and Plan Assessment and plan (1) PAF (paroxysmal atrial fibrillation): Code(s): I48.0 - Paroxysmal atrial fibrillation Status: Acute Assessment and Plan: Back in sinus rhythm. [id number] 5. Was on heparin drip but on hold in anticipation of liver biopsy. On Metoprolol. After liver biopsy then start Eliquis 5 mg BID. Obtain echo. (2) HTN (hypertension): Code(s): I10 - Essential (primary) hypertension Status: Acute Assessment and Plan: Stable. (3) Dyslipidemia: Code(s): E78.5 - Hyperlipidemia, unspecified Status: Acute Assessment and Plan: On Atorvastatin. History of Present Illness History of Present Illness Consult date/time: 02/09/25 07:53 Reason For Visit: Chest pain Narrative: 74 yr old woman presented to ER with nausea and vomiting. She has a history of DM, hypertension, dyslipidemia, COPD, EILEEN on CPAP. Reports she was having nausea and vomiting, sob, chest discomfort and found to be in atrial fibrillation. She spontaneously cardioverted. She can walk at home with a walker about 1 block. Currently, denies chest pain, sob, orthopnea, PND, edema, dizziness, palpitations. Review of Systems Review of Systems: All systems reviewed & are unremarkable except as noted in HPI and below Constitutional: Constitutional: Reports as per HPI, Denies chills and Denies fever(s) Cardiovascular: Cardiovascular: Reports as per HPI, Reports chest pain and Denies irregular heart rhythm Respiratory: Respiratory: Reports as per HPI and Reports dyspnea Gastrointestinal: Gastrointestinal: Reports as per HPI, Reports nausea and Reports vomiting Genitourinary: Genitourinary: Reports as per HPI and Denies dysuria Musculoskeletal: Musculoskeletal: Reports as per HPI Neurologic: Reports as per HPI, Denies dizziness and Denies syncope ON LICENSE OF [facility] Past Medical History Medical History (Updated 02/09/25 @ 07:56 by Beck Lopez DO) Type 2 diabetes mellitus Metabolic syndrome Abnormal glucose Hypothyroidism Colon polyp HTN (hypertension) EILEEN (obstructive sleep apnea) Morbid obesity Family History Family History Other Cerebrovascular accident Diabetes mellitus Family history of arthritis Family history of blood dyscrasia Family history of cardiovascular disease Family history of elevated blood lipids Family history of genitourinary disease Family history of hearing loss Family history of migraine headaches Family history of obesity Hypertension Malignant neoplasm of prostate Social History Social History Smoking packs per day: 3 Smoking cigarettes per day: 60.0 Smoking status: Former smoker Tobacco type: cigarettes Alcohol intake: never Substance use: never Substance use type: does not use Do You Feel Safe in your Home?: Yes Lack of Transportation: No Lack of Food: Never True Current Housing: I Have Housing Concerned About Future Housing: No Difficulty Paying Gas/Electric Bills: No Difficulty Paying for Meds: No Currently Unemployed: No Education: High School Diploma/GED Difficulty w/ Childcare or Family Care: No Living arrangements: alone Spiritual care concerns: No Meds Home Medications and Allergies Home Medications ?Medication ?Instructions ?Recorded ?Confirmed ?Type amlodipine 10 mg tablet 10 mg PO DAILY 05/25/24 02/08/25 History atorvastatin 20 mg tablet 20 mg PO DAILY 05/25/24 02/08/25 History clobetasol 0.05 % topical cream 1 applic topical DAILY PRN Itching 05/25/24 02/08/25 History dulaglutide 0.75 mg/0.5 mL 0.75 mg subcut WEEKLY 05/25/24 02/08/25 History subcutaneous pen injector (Trulicity) ergocalciferol (vitamin D2) 1,250 1,250 mcg PO WEEKLY 05/25/24 02/08/25 History mcg (50,000 unit) capsule famotidine 20 mg tablet 20 mg PO DAILY 05/25/24 02/08/25 History fluticasone propionate 50 50 mcg intranasal DAILY 05/25/24 02/08/25 History mcg/actuation nasal spray,suspension levothyroxine 112 mcg tablet 112 mcg PO DAILY 05/25/24 02/08/25 History metformin 500 mg tablet,extended 500 mg PO BID 05/25/24 02/08/25 History release 24 hr metoprolol succinate 100 mg 100 mg PO DAILY 05/25/24 02/08/25 History tablet,extended release 24 hr zolpidem 5 mg tablet 5 mg PO QHS 05/25/24 02/08/25 History Calcium Adult 1 tab-cap PO DAILY 06/13/24 02/08/25 History Vitamin B-6 1 tab-cap PO DAILY 06/13/24 02/08/25 History Vitamin C 1 tab-cap PO DAILY 06/13/24 02/08/25 History albuterol 90 mcg/actuation aerosol 90 mcg inhalation DAILY PRN SOB 06/13/24 02/08/25 History inhaler hydrochlorothiazide 25 mg tablet 25 mg PO DAILY 06/13/24 02/08/25 History umeclidinium 62.5 mcg-vilanterol 1 inh inhalation DAILY 06/13/24 02/08/25 History 25 mcg/actuation powdr for inhalation (Anoro Ellipta) zinc 1 tab-cap PO DAILY 06/13/24 02/08/25 History Allergies Allergy/AdvReac Type Severity Reaction Status Date / Time aspirin Allergy Unknown BLEEDING Verified 02/08/25 13:59 lisinopril Allergy Unknown Swelling Verified 02/08/25 13:59 Vital Signs Vital Signs - 24 hr 02/08/25 13:20 02/08/25 13:43 02/08/25 14:51 Temperature 97.6 F 97.6 F Pulse Rate 98 112 H Respiratory Rate 20 20 Blood Pressure 157/70 H 157/70 H Pulse Oximetry 97 100 97 Oxygen Delivery Room Air Nasal Cannula Oxygen Flow Rate 3 02/08/25 15:00 02/08/25 15:01 02/08/25 15:41 Temperature Pulse Rate 62 62 Respiratory Rate 19 15 Blood Pressure 148/85 H 134/68 Pulse Oximetry 97 94 97 Oxygen Delivery Room Air Oxygen Flow Rate 02/08/25 15:45 02/08/25 16:45 02/08/25 17:21 Temperature Pulse Rate 64 60 Respiratory Rate 14 15 Blood Pressure 132/69 149/82 H Pulse Oximetry 96 98 94 Oxygen Delivery Room Air Oxygen Flow Rate 02/08/25 18:01 02/08/25 18:02 02/08/25 18:25 Temperature Pulse Rate 64 61 63 Respiratory Rate 15 14 21 H Blood Pressure 158/73 H Pulse Oximetry 90 90 95 Oxygen Delivery Oxygen Flow Rate 02/08/25 18:30 02/08/25 18:45 02/08/25 18:46 Temperature Pulse Rate 68 63 64 Respiratory Rate 20 15 15 Blood Pressure 141/65 H Pulse Oximetry 97 95 Oxygen Delivery Oxygen Flow Rate 02/08/25 19:00 02/08/25 19:23 02/08/25 19:31 Temperature Pulse Rate 67 73 63 Respiratory Rate 16 17 16 Blood Pressure Pulse Oximetry 95 98 97 Oxygen Delivery Oxygen Flow Rate 02/08/25 19:50 02/08/25 20:05 02/08/25 20:15 Temperature Pulse Rate 61 68 65 Respiratory Rate 20 17 16 Blood Pressure Pulse Oximetry 98 97 97 Oxygen Delivery Oxygen Flow Rate 02/08/25 20:16 02/08/25 20:30 02/08/25 20:52 Temperature Pulse Rate 65 63 60 Respiratory Rate 17 16 14 Blood Pressure 138/67 138/67 Pulse Oximetry 98 96 95 Oxygen Delivery Oxygen Flow Rate 02/08/25 21:16 02/08/25 21:30 02/08/25 21:30 Temperature 97.6 F Pulse Rate 65 62 62 Respiratory Rate 20 22 H Blood Pressure 137/77 Pulse Oximetry 94 98 Oxygen Delivery Nasal Cannula Oxygen Flow Rate 2 02/08/25 22:00 02/08/25 23:40 02/09/25 00:00 Temperature 97.6 F Pulse Rate 62 67 62 Respiratory Rate 20 20 Blood Pressure 116/46 L Pulse Oximetry 97 97 Oxygen Delivery Nasal Cannula Oxygen Flow Rate 2 02/09/25 00:00 02/09/25 02:00 02/09/25 04:00 Temperature Pulse Rate 62 54 L 54 L Respiratory Rate 20 Blood Pressure Pulse Oximetry 97 Oxygen Delivery Nasal Cannula Oxygen Flow Rate 2 02/09/25 04:00 02/09/25 04:00 02/09/25 06:00 Temperature 98 F Pulse Rate 54 L 90 59 L Respiratory Rate 20 Blood Pressure 131/74 Pulse Oximetry 98 Oxygen Delivery Oxygen Flow Rate 02/09/25 07:46 Temperature 98.3 F Pulse Rate 79 Respiratory Rate 20 Blood Pressure 126/55 L Pulse Oximetry 99 Oxygen Delivery Oxygen Flow Rate Exam Const: General: cooperative, healthy appearing and comfortable Resp: Auscultation: clear to auscultation bilaterally, no crackles, no rales, no rhonchi and no wheezes Cardio: Rate: regular rate Rhythm: regular rhythm Heart sounds: no murmurs Peripheral pulses: dorsalis pedis present GI: GI Palp: No abdominal tenderness and Yes Soft to palpation Neuro: General: oriented to person, oriented to place and oriented to time Extrem: Right lower extremity: no edema Left lower extremity: no edema Results Labs and Meds 02/09/25 05:12 02/09/25 05:12 Lab results: Cardiac Enzymes 0602/08/25 02/08/25 Range/Units 14:37 18:34 21:52 AST 30 (14-36) U/L Troponin I < 0.012 < 0.012 < 0.012 (0.000-0.034) ng/mL 02/09/25 Range/Units 05:12 AST 28 (14-36) U/L Troponin I (0.000-0.034) ng/mL Coagulation 02/08/25 02/09/25 Range/Units 14:00 05:12 PT 13.6 14.2 (11.1-14.7) Seconds APTT 27.0 26.4 (22.3-36.8) Seconds CBC 02/08/25 02/09/25 Range/Units 14:00 05:12 WBC 15.5 H 12.9 H (4.5-10.0) K/mm3 RBC 4.52 4.23 (4.2-5.4) M/mm3 Hgb 14.2 13.1 (12.0-15.0) g/dL Hct 42.8 41.9 (37.0-47.0) % Plt Count 318 292 (150-375) k/mm3 Lymph # (Auto) 1.14 2.76 (0.9-3.2) K/mm3 [place] # (Auto) 0.4 0.7 H (0.1-0.6) K/mm3 Eos # (Auto) 0.0 0.2 (0-0.3) K/mm3 Baso # (Auto) 0.1 0.1 (0.0-0.1) K/mm3 Comprehensive Metabolic Panel 02/08/25 02/09/25 Range/Units 14:37 05:12 Sodium 137 139 (137-145) mmol/L Potassium 3.2 L 3.5 (3.4-5.0) mmol/L Chloride 102 104 (98-107) mmol/L Carbon Dioxide 23 29 (22-30) mmol/L BUN 10 10 (7-17) mg/dL Creatinine 0.53 L 0.74 (0.7-1.0) mg/dL Glucose 182 H 109 (65-110) mg/dL Calcium 9.2 9.3 (8.4-10.2) mg/dL AST 30 28 (14-36) U/L ALT 28 21 (6-35) U/L Alkaline Phosphatase 117 99 (38-126) U/L Total Protein 8.2 7.3 (6.3-8.2) g/dL Albumin 4.8 4.3 (3.5-5.1) g/dL Intake and Output 02/08/25 02/08/25 02/09/25 15:59 23:59 07:59 Intake Total 450 Output Total 300 1100 Balance -300 -650 Intake: Oral 450 Output: Urine 300 1100 Patient Weight 02/09/25 23:59 Weight 112.8 kg
[2025-02-09] MEDS: UMECLIDINIUM/VILANTEROL 62.5-25 MCG ELLIPTA 1 PUFF INHALATION (08:20)
[2025-02-09 08:51] LABS: Glucose Point of Care 123 mg/dl (65-105)
[2025-02-09] MEDS: PERFLUTREN LIPID MICROSPHERES 1.5 ML VIAL DILUTED TO 10 ML TOTAL VOLUME IV PUSH (10:20)
[2025-02-09] MEDS: ATORVASTATIN 20 MG TABLET PO (10:38)
[2025-02-09] MEDS: FAMOTIDINE 20 MG TABLET PO (10:38)
[2025-02-09] MEDS: amLODIPine BESYLATE 10 MG TABLET PO (10:38)
[2025-02-09] MEDS: METOPROLOL SUCCINATE EXT REL 100 MG TABCR PO (10:39)
[2025-02-09] MEDS: ACETAMINOPHEN 325 MG TABLET 650 MG PO (10:39)
[2025-02-09] MEDS: FLUTICASONE PROPIONATE 0.05% NA SPR 16 GM BTL (*BKC) 2 SPRAY NASAL (10:40)
[2025-02-09] MEDS: PANTOPRAZOLE SODIUM IV 40 MG VIAL IV PUSH (10:40)
--- NOTE | 2025-02-09 10:59 | IVDEFINITY ---
Prior to administration of IV Definity the patient was educated on the risks and benefits of the imaging enhancing agent including potential adverse side effects. The patient verbalized understanding. Allergies were verified. No exclusion criteria were identified and at least one of the following inclusion criteria were met: 1) physician request, 2) patient technically difficult to image (per the [place] [employer] guidelines of two or more segments not discernable within the apical view), or 3) questionable left ventricular function. ?
[2025-02-09 12:16] LABS: Glucose Point of Care 107 mg/dl (65-105)
[2025-02-09 15:44] LABS: Glucose Point of Care 182 mg/dl (65-105)
--- NOTE | 2025-02-09 15:50 | PC.NURSE ---
Notified Dr Wolf that the patients HR has been dropping to 50's throughout the day, reaching 48 at times. PT is resting but awake in her room. Notified Dr Lopez, received order to decrease 100mg of toprolol to 75mg.
--- NOTE | 2025-02-09 16:15 | PM.IMPN ---
Progress Note: A&P Assessment and Plan (1) New onset a-fib: Code(s): I48.91 - Unspecified atrial fibrillation Status: Acute Assessment and Plan: -Initial EKG a-fib RVR with spontaneous conversion -Potassium 3.2, magnesium 1.8--replaced both, recheck in AM -Heparin drip started due to elevated CHADS-VASC score -CXR with cardiomegaly, BNP mildly high -CT findings of esophagitis, prior GI bleed with aspirin -Rectal exam with occult stool negative (2) Cholelithiases: Qualifiers: Biliary obstruction: without biliary obstruction Cholecystitis presence: without cholecystitis Cholelithiasis location: gallbladder Qualified Code(s): K80.20 - Calculus of gallbladder without cholecystitis without obstruction Code(s): K80.20 - Calculus of gallbladder without cholecystitis without obstruction Status: Acute Assessment and Plan: -Patient describes epigastric pain with unrelenting nausea/vomiting for 24 hours. -Gallstone on CT scan -Will order Ultrasound for tomorrow -PRN pain and nausea medications ordered -NPO after 0300 (3) Hepatic lesion: Code(s): K76.9 - Liver disease, unspecified Status: Acute Assessment and Plan: -Two lesions noted in the liver, possible arteriovenous shunting vs HCC -Will consult IR to see about biopsy -Will stop heparin in order to potentially get biopsy (4) Acute hypokalemia: Code(s): E87.6 - Hypokalemia Status: Acute Assessment and Plan: -Replaced as above, continue to monitor -Likely made worse by HCTZ (5) Type 2 diabetes mellitus: Code(s): E11.9 - Type 2 diabetes mellitus without complications Status: Acute Assessment and Plan: -A1c 5.9, patient takes Trulicity and metformin -Hold home meds, SSI moderate dose -NPO at 0300 for possible biopsy of liver (6) Esophagitis: Code(s): K20.90 - Esophagitis, unspecified without bleeding Status: Acute Assessment and Plan: -Pantoprazole ordered -Prior GI bleed, not current -Imaging finding may be due to profuse vomiting over past 24 hours (7) HTN (hypertension): Code(s): I10 - Essential (primary) hypertension Status: Acute Assessment and Plan: -History of HTN, blood pressure checked -Leg swelling noted, may need to change amlodipine to something else (8) EILEEN (obstructive sleep apnea): Code(s): G47.33 - Obstructive sleep apnea (adult) (pediatric) Status: Acute Assessment and Plan: -Dyspnea noted, oxygen applied by nursing -AutoPap ordered but patient may decline use -She should be encouraged to have someone bring her home CPAP unit if still admitted overnight tomorrow. (9) Hypothyroidism: Code(s): E03.9 - Hypothyroidism, unspecified Status: Acute Assessment and Plan: -Continue home medication -TSH mildly low, Reflex pending (10) Insomnia: Code(s): G47.00 - Insomnia, unspecified Status: Chronic Assessment and Plan: -Hold zolpidem while in hospital -Ordered 0.5 mg alprazolam and 100 mg trazodone QHS for sleep initiation and sleep duration Plan 74 y/o female presented with c/o abdominal pain and persistent n/v, Ct scan of abdomen was concerning for hepatocellular carcinoma abd radiologist recommended MRI, patient stats feels litter better compared when she arrived, will follow up on MRI and further recommendation to follow. -Cardiology consulted -Echo cardiogram ordered -RUQ US ordered for gallstone, epigastric pain, nausea/vomiting--patient may benefit from General Surgery referral or consult Subjective Date/time seen: 02/09/25 16:15 Interval history: Chief Complaint: Nausea/vomiting, epigastric pain, new A-fib RVR, possible new CHF (leg swelling and cardiomegaly) H&P-Narrative: This is a 74 year old female patient who is admitted for new onset atrial fibrillation with RVR s/p spontaneous conversion back to sinus rhythm along with a few other concerns including possible new onset CHF, gallstones with prolonged nausea/vomiting/epigastric pain. She presented to the hospital due to severe abdominal pain and persistent vomiting that began after eating a turkey sandwich with tomato, mayonnaise, and guacamole (avocado) last night. She vomited throughout the night and todday, was unable to sleep, and experienced significant pain, which led her to call an ambulance. In the ER, she received morphine and Reglan, which provided some relief after Zofran was ineffective. She has not taken any other medications since yesterday, except for her morning dose of levothyroxine, which she states she may have vomited. She also reports a history of asthma, for which she uses inhalers only as needed, and uses CPAP for sleep apnea. She did not use her inhaler today. RN placed patient on oxygen on arrival to the IMU for dyspnea which she states is helping greatly. She said she probably would not use CPAP tonight because the oxygen is helping her a lot. She has noticed swelling and pain in her legs for the past three months, which is new and concerning to her. She is diabetic and is worried about the cause of the swelling. She showed a photo of the swelling which was very significant in appearance and has a follow-up appointment next month with new PCP. She has a history of hypertension and is on amlodipine and HCTZ, which may be contributing to the leg swelling and hypokalemia. Chest x-ray shows cardiomegaly and labs with elevated BNP 599. She reports intermittent left rib pain associated with movement and RUQ abdominal/back pain with movement and palpation. She has a history of colon polyps (removed 20 years ago), and recent imaging (CT scan) revealed two masses in her liver, which could be tumors or arteriovenous in nature. She has osteoporosis and is scheduled for a bone scan and mammogram in April. She reports her Primary Care Provider moved to [place] so she just established with a new provider who works for [employer] but sees patients in [place]. She lives alone in [place] and has family (nieces and nephews) nearby, but no children. She also has a history of knee replacement and an abdominal hernia. She has also had colon polyps removed twice: first time about 20 years ago and again more recently with Dr. Le. She is originally from [place] and speaks limited Mexican, but uses translation services as needed. She previously lived in [place], [place], where she spoke mostly Romanian, and finds it challenging to learn Mexican at her age, but tries her best. She experiences chronic insomnia and uses zolpidem at night for sleep. She did not sleep last night due to vomiting. She was started on heparin drip due to afib, new onset, and elevated CHADS-VASC score but this will be stopped for possible liver biopsy. 74 y/o female presented with c/o abdominal pain and persistent n/v, Ct scan of abdomen was concerning for hepatocellular carcinoma abd radiologist recommended MRI, patient stats feels litter better compared when she arrived, will follow up on MRI and further recommendation to follow. Review of Systems Review of Systems: All systems reviewed & are unremarkable except as noted in HPI and below Exam Narrative: Morbidly obese Patient is comfortable, NAD HEENT: eyes are clear and none icteric LUNGS:CTA HEART: RR S1S2 ABD: Distended Lower extremities: no edema SKIN: nonjaundiced Neuro: grossly intact. Objective Data Vital Signs Vital Signs: Vital Signs - 24 hr 02/08/25 16:45 02/08/25 17:21 02/08/25 18:01 Temperature Pulse Rate 60 64 Respiratory Rate 15 15 Blood Pressure 149/82 H 158/73 H Pulse Oximetry 98 94 90 Oxygen Delivery Room Air Oxygen Flow Rate 02/08/25 18:02 02/08/25 18:25 02/08/25 18:30 Temperature Pulse Rate 61 63 68 Respiratory Rate 14 21 H 20 Blood Pressure Pulse Oximetry 90 95 97 Oxygen Delivery Oxygen Flow Rate 02/08/25 18:45 02/08/25 18:46 02/08/25 19:00 Temperature Pulse Rate 63 64 67 Respiratory Rate 15 15 16 Blood Pressure 141/65 H Pulse Oximetry 95 95 Oxygen Delivery Oxygen Flow Rate 02/08/25 19:23 02/08/25 19:31 02/08/25 19:50 Temperature Pulse Rate 73 63 61 Respiratory Rate 17 16 20 Blood Pressure Pulse Oximetry 98 97 98 Oxygen Delivery Oxygen Flow Rate 02/08/25 20:05 02/08/25 20:15 02/08/25 20:16 Temperature Pulse Rate 68 65 65 Respiratory Rate 17 16 17 Blood Pressure 138/67 Pulse Oximetry 97 97 98 Oxygen Delivery Oxygen Flow Rate 02/08/25 20:30 02/08/25 20:52 02/08/25 21:16 Temperature 36.4 C Pulse Rate 63 60 65 Respiratory Rate 16 14 20 Blood Pressure 138/67 137/77 Pulse Oximetry 96 95 94 Oxygen Delivery Oxygen Flow Rate 02/08/25 21:30 02/08/25 21:30 02/08/25 22:00 Temperature Pulse Rate 62 62 62 Respiratory Rate 22 H Blood Pressure Pulse Oximetry 98 Oxygen Delivery Nasal Cannula Oxygen Flow Rate 2 02/08/25 23:40 02/09/25 00:00 02/09/25 00:00 Temperature 36.4 C Pulse Rate 67 62 62 Respiratory Rate 20 20 Blood Pressure 116/46 L Pulse Oximetry 97 97 Oxygen Delivery Nasal Cannula Oxygen Flow Rate 2 02/09/25 02:00 02/09/25 04:00 02/09/25 04:00 Temperature Pulse Rate 54 L 54 L 54 L Respiratory Rate 20 Blood Pressure Pulse Oximetry 97 Oxygen Delivery Nasal Cannula Oxygen Flow Rate 2 02/09/25 04:00 02/09/25 06:00 02/09/25 07:46 Temperature 36.6 C 36.8 C Pulse Rate 90 59 L 79 Respiratory Rate 20 20 Blood Pressure 131/74 126/55 L Pulse Oximetry 98 99 Oxygen Delivery Oxygen Flow Rate 02/09/25 08:00 02/09/25 08:00 02/09/25 10:00 Temperature Pulse Rate 63 60 Respiratory Rate Blood Pressure Pulse Oximetry 96 Oxygen Delivery Nasal Cannula Oxygen Flow Rate 2 02/09/25 10:39 02/09/25 12:00 02/09/25 12:00 Temperature 36.5 C Pulse Rate 61 48 L Respiratory Rate 16 Blood Pressure 98/34 L Pulse Oximetry 97 98 Oxygen Delivery Nasal Cannula Oxygen Flow Rate 2 02/09/25 12:00 02/09/25 14:00 02/09/25 15:46 Temperature 37.2 C Pulse Rate 53 L 59 L 52 L Respiratory Rate 20 Blood Pressure 110/46 L Pulse Oximetry 99 Oxygen Delivery Oxygen Flow Rate Intake/Output Intake/Output: Intake & Output 02/06/25 02/07/25 02/08/25 02/09/25 23:59 23:59 23:59 23:59 Intake Total 690 Output Total 300 1100 Balance -300 -410 Meds/Results Medications: Active Medications Generic Name Dose Route Start Last Admin Trade Name Freq PRN Reason Stop Dose Admin Acetaminophen 650 mg 02/08/25 22:39 02/09/25 10:39 Acetaminophen 325 Mg Tablet PO 650 mg Q4H PRN Administration pain rated 1-6 Albuterol 2 puff 02/08/25 22:43 Albuterol Sulfate (*Sp) Aerosol 1 Puff INHALATION Q4HRT PRN Shortness Of Breath Alprazolam 0.5 mg 02/08/25 22:40 Alprazolam (*Crx) 0.5 Mg Tablet PO HS PRN Sleep initiation Amlodipine Besylate 10 mg 02/09/25 09:00 02/09/25 10:38 Amlodipine Besylate 10 Mg Tablet PO 10 mg DAILY FELIX Administration Atorvastatin Calcium 20 mg 02/09/25 09:00 02/09/25 10:38 Atorvastatin 20 Mg Tablet PO 20 mg DAILY FELIX Administration Clobetasol Propionate 1 applic 02/08/25 22:44 Clobetasol Propionate 0.05% Cream 15 Gm TOPICAL DAILY PRN Itching Dextrose 12.5 gm 02/08/25 22:42 Dextrose 50% 25 Gm/50 Ml Syringe IV PUSH PRN PRN Hypoglycemia Protocol Ergocalciferol 1,250 mcg 02/12/25 09:00 Ergocalciferol (Vitamin D2) 1,250 Mcg (50,000 Units) Capsule PO WEEKLY FELIX Famotidine 20 mg 02/09/25 09:00 02/09/25 10:38 Famotidine 20 Mg Tablet PO 20 mg DAILY FELIX Administration Fluticasone Propionate 2 spray 02/09/25 09:00 02/09/25 10:40 Fluticasone Propionate 0.05% Na Spr 16 Gm Btl (*Bkc) NASAL 2 spray DAILY FELIX Administration Glucagon 1 mg 02/08/25 22:42 Glucagon For Inj 1 Mg Vial IM PRN PRN Hypoglycemia Protocol Glucose 15 gm 02/08/25 22:42 Glucose Oral Gel 15 Gm Of Glucse In 37.5 Gm Tube PO PRN PRN Hypoglycemia Protocol Dextrose 1,000 mls @ 100 mls/hr 02/08/25 22:42 Dextrose 5% 1,000 Ml IVPB PRN PRN Hypoglycemia Protocol Insulin Aspart 3 - 6 units 02/09/25 08:00 02/09/25 11:40 Insulin Aspart (*Bkc) 100 Units/Ml SUB-Q Not Given TIDWM [facility] Protocol Levothyroxine Sodium 112 mcg 02/09/25 06:30 02/09/25 06:02 Levothyroxine Sodium 112 Mcg Tablet PO 112 mcg DAILY@0630 FELIX Administration Metoclopramide HCl 10 mg 02/08/25 22:39 Metoclopramide Hcl Inj 10 Mg/2 Ml Vial IV PUSH Q6HR PRN nausea/vomiting Metoprolol Succinate 75 mg 02/10/25 09:00 Metoprolol Succinate Ext Rel 25 Mg Tabcr PO DAILY [facility] Miscellaneous Information 0 each 02/08/25 00:01 Clobetasol Add Site Of Use XX 03/10/25 00:00 CLARIFY [facility] Morphine Sulfate 4 mg 02/08/25 22:39 Morphine Sulfate (*Crx) 4 Mg/Ml Inj IV PUSH Q4H PRN Pain Rated 7-10 Ondansetron HCl 4 mg 02/08/25 18:27 Ondansetron Inj 4 Mg/2 Ml Vial IV PUSH Q4H PRN Nausea Pantoprazole Sodium 40 mg 02/09/25 09:00 02/09/25 10:40 Pantoprazole Sodium Iv 40 Mg Vial IV PUSH 40 mg QAM FELIX Administration Polyethylene Glycol 17 gm 02/09/25 15:53 Polyethylene Glycol 3350 17 Gm Powd.Pack PO QAM FELIX Trazodone HCl 100 mg 02/08/25 22:40 02/09/25 00:02 Trazodone Hcl 50 Mg Tablet PO 100 mg HS FELIX Administration Umeclidinium/Vilanterol 1 puff 02/09/25 08:00 02/09/25 08:20 Umeclidinium/Vilanterol 62.5-25 Mcg Ellipta INHALATION 1 puff DAILYRT FELIX Administration Radiology Results: ITS Impressions Chest X-Ray 02/08/25 14:29 Impression: 1: Bibasilar airspace disease may represent atelectasis, edema or pneumonia. Chest/Abdomen/Pelvis CTA 02/08/25 15:54 IMPRESSION: CHEST: 1. No pulmonary embolism. 2. No acute cardiopulmonary pathology. ABDOMEN/PELVIS: 1. No enhancing lesions in the liver. Differential include hepatocellular carcinoma versus arteriovenous shunting. Follow-up advised. 2. Filling defect in the portal vein which may be mixing of blood with contrast. Thrombus is less likely although cannot be excluded. Clinical correlation and if warranted ultrasound is advised. 3. Cholelithiasis. 4. Slight thickening of the wall of the sigmoid colon which may indicate colitis. Follow-up advised. 5. Thickened lower esophagus which may indicate reflux esophagitis. Abdomen Ultrasound 02/09/25 09:05 IMPRESSION: 1. Cholelithiasis with normal appearing gallbladder and no sonographic Perdue sign to suggest acute cholecystitis. 2. Diffuse hepatic steatosis with focal sparing along the gallbladder fossa. No correlate identified for the small regions of subcapsular hyperdensity/enhancement on prior CT most likely related to focal fatty sparing or transient hepatic attenuation difference. Consider pre and postcontrast MRI for further evaluation. Abdomen MRI 02/09/25 13:39 IMPRESSION: 1. . Mild diffuse hepatic steatosis with 5 mm macroscopic fat containing likely lipoma in the right hepatic lobe. No other hepatic lesions identified. No correlate identified for the appearance small ill-defined regions of peripheral enhancement at the liver on the prior arterial phase CT which would be most consistent with transient hepatic attenuation difference. 2. Persistent gallstone at the neck of the gallbladder with trace amount of pericholecystic fluid between the gallbladder and liver at the gallbladder fossa and could not exclude early acute cholecystitis although the Perdue sign was normal and the prior ultrasound. Could consider HIDA scan for more definitive determination. 3. Focal adenomyomatosis at the fundus of the gallbladder. Labs Labs: Laboratory Results - last 24 hr 02/08/25 02/08/25 02/08/25 14:37 18:34 21:46 WBC RBC Hgb Hct MCV MCH MCHC RDW Plt Count MPV Immature Gran % (Auto) Neut % (Auto) Lymph % (Auto) [place] % (Auto) Eos % (Auto) Baso % (Auto) Lymph # (Auto) [place] # (Auto) Eos # (Auto) Baso # (Auto) Abs Immat Gran (auto) Absolute Neuts (auto) Absolute Nucleated RBC Nucleated RBC % PT INR APTT Sodium Potassium Chloride Carbon Dioxide Anion Gap BUN Creatinine Estim Creat Clear Calc Estimated GFR Glucose POC Capillary Glucose Hemoglobin A1c Calcium Magnesium Iron 69 TIBC 359 % Saturation 19 L Ferritin 100.00 Total Bilirubin AST ALT Alkaline Phosphatase Troponin I < 0.012 Total Protein Albumin Vitamin B12 313.0 Folate 13.7 TSH (Reflex) Free T4 Total T3 02/08/25 02/09/25 02/09/25 21:52 05:12 08:49 WBC 12.9 H RBC 4.23 Hgb 13.1 Hct 41.9 MCV 99.1 MCH 31.0 MCHC 31.3 L RDW 13.1 Plt Count 292 MPV 10.7 H Immature Gran % (Auto) 0.3 Neut % (Auto) 71.0 Lymph % (Auto) 21.4 [place] % (Auto) 5.6 Eos % (Auto) 1.2 Baso % (Auto) 0.5 Lymph # (Auto) 2.76 [place] # (Auto) 0.7 H Eos # (Auto) 0.2 Baso # (Auto) 0.1 Abs Immat Gran (auto) 0.04 H Absolute Neuts (auto) 9.1 H Absolute Nucleated RBC 0.000 Nucleated RBC % 0.0 PT 14.2 INR 1.1 APTT 26.4 Sodium 139 Potassium 3.5 Chloride 104 Carbon Dioxide 29 Anion Gap 6 BUN 10 Creatinine 0.74 Estim Creat Clear Calc 70 Estimated GFR > 60 Glucose 109 POC Capillary Glucose 123 H Hemoglobin A1c 5.9 H Calcium 9.3 Magnesium 2.4 H Iron TIBC % Saturation Ferritin Total Bilirubin 0.7 AST 28 ALT 21 Alkaline Phosphatase 99 Troponin I < 0.012 Total Protein 7.3 Albumin 4.3 Vitamin B12 Folate TSH (Reflex) 0.453 L Free T4 1.44 Total T3 0.96 02/09/25 02/09/25 12:01 15:19 WBC RBC Hgb Hct MCV MCH MCHC RDW Plt Count MPV Immature Gran % (Auto) Neut % (Auto) Lymph % (Auto) [place] % (Auto) Eos % (Auto) Baso % (Auto) Lymph # (Auto) [place] # (Auto) Eos # (Auto) Baso # (Auto) Abs Immat Gran (auto) Absolute Neuts (auto) Absolute Nucleated RBC Nucleated RBC % PT INR APTT Sodium Potassium Chloride Carbon Dioxide Anion Gap BUN Creatinine Estim Creat Clear Calc Estimated GFR Glucose POC Capillary Glucose 107 H 182 H Hemoglobin A1c Calcium Magnesium Iron TIBC % Saturation Ferritin Total Bilirubin AST ALT Alkaline Phosphatase Troponin I Total Protein Albumin Vitamin B12 Folate TSH (Reflex) Free T4 Total T3 Quality VTE Prophylaxis VTE prophylaxis: mechanical ordered and pharmacologic ordered (heparin (on hold pending possible biopsy and cardiology consult))
[2025-02-09] MEDS: polyethylene glycoL 3350 17 GM POWD.PACK PO (16:31)
[2025-02-09] MEDS: METOCLOPRAMIDE HCL INJ 10 MG/2 ML VIAL IV PUSH (16:31)
--- NOTE | 2025-02-09 17:02 | P.CONGS_ITS ---
Assessment and Plan Assessment and plan (1) Acute calculous cholecystitis: Code(s): K80.00 - Calculus of gallbladder with acute cholecystitis without obstruction Status: Acute Assessment and Plan: * I have reviewed the CT and MRI and discussed the findings with the patient. She has evidence of cholelithiasis with a gallstone stuck at the neck of her gallbladder likely causing acute cholecystitis. This is likely the cause of her symptoms that brought her to the emergency department. I have recommended proceeding with laparoscopic cholecystectomy, possible open. I discussed the procedure, risks, benefits, and alternatives. I have discussed the small risks of conversion to open as well as risks of injuring surrounding structures. I discussed that removing the gallbladder will prevent recurrent episodes like this or worsening complications. Patient is agreeable to proceeding. (2) PAF (paroxysmal atrial fibrillation): Code(s): I48.0 - Paroxysmal atrial fibrillation Status: Acute (3) Type 2 diabetes mellitus: Code(s): E11.9 - Type 2 diabetes mellitus without complications Status: Acute (4) EILEEN (obstructive sleep apnea): Code(s): G47.33 - Obstructive sleep apnea (adult) (pediatric) Status: Acute History of Present Illness Consult details Consult date: 02/09/25 Reason for consult: other (Cholelithiasis, cholecystitis) Requesting physician: Sanjay Wolf MD Narrative: This is a 74-year-old woman who I am asked to see for cholelithiasis. She is primarily Romansh-speaking and interpreting service utilized for our discussion. She presented to the emergency department yesterday with epigastric abdominal pain, nausea, and vomiting. She had eaten a turkey sandwich with avocado before the pain had started. She had had some minor pains like this in the past but nothing this severe. She was noted to have an elevated white blood count and CT showed evidence of cholelithiasis and some other potential small liver lesions. She was also noted to be in AFib with RVR but then spontaneously converted back to sinus rhythm later that afternoon. She was admitted for further treatment. Echocardiogram was obtained today along with MRI of the abdomen and abdominal ultrasound. The patient is still having some mild pain but that is also still having nausea and vomiting at times. She is diabetic and on metformin and Trulicity. Review of Systems 2 Review of Systems: All systems reviewed & are unremarkable except as noted in HPI and below Constitutional: Constitutional: Denies chills and Denies fever(s) Eyes: Eyes: Denies change in vision ENT: Denies hearing loss, Denies neck pain and Denies sore throat Cardiovascular: Cardiovascular: Denies chest pain and Denies dyspnea Respiratory: Respiratory: Denies cough, Denies dyspnea and Denies wheezing Gastrointestinal: Gastrointestinal: Reports as per HPI Genitourinary: Genitourinary: Denies hematuria and Denies dysuria Musculoskeletal: Musculoskeletal: Denies arthralgias, Denies joint swelling and Denies neck pain Allergic/Immunologic: Allergic/Immunologic: Denies wheezing [facility] Past Medical History Medical History (Updated 02/09/25 @ 17:10 by Amador Leonardo DO) Type 2 diabetes mellitus Metabolic syndrome Abnormal glucose Hypothyroidism Colon polyp HTN (hypertension) EILEEN (obstructive sleep apnea) Morbid obesity Family History Family History Other Cerebrovascular accident Diabetes mellitus Family history of arthritis Family history of blood dyscrasia Family history of cardiovascular disease Family history of elevated blood lipids Family history of genitourinary disease Family history of hearing loss Family history of migraine headaches Family history of obesity Hypertension Malignant neoplasm of prostate Social History Social History Smoking packs per day: 3 Smoking cigarettes per day: 60.0 Smoking status: Former smoker Tobacco type: cigarettes Alcohol intake: never Substance use: never Substance use type: does not use Do You Feel Safe in your Home?: Yes Lack of Transportation: No Lack of Food: Never True Current Housing: I Have Housing Concerned About Future Housing: No Difficulty Paying Gas/Electric Bills: No Difficulty Paying for Meds: No Currently Unemployed: No Education: High School Diploma/GED Difficulty w/ Childcare or Family Care: No Living arrangements: alone Spiritual care concerns: No Meds Home Medications and Allergies Home Medications ?Medication ?Instructions ?Recorded ?Confirmed ?Type amlodipine 10 mg tablet 10 mg PO DAILY 05/25/24 02/08/25 History atorvastatin 20 mg tablet 20 mg PO DAILY 05/25/24 02/08/25 History clobetasol 0.05 % topical cream 1 applic topical DAILY PRN Itching 05/25/24 02/08/25 History dulaglutide 0.75 mg/0.5 mL 0.75 mg subcut WEEKLY 05/25/24 02/08/25 History subcutaneous pen injector (Trulicity) ergocalciferol (vitamin D2) 1,250 1,250 mcg PO WEEKLY 05/25/24 02/08/25 History mcg (50,000 unit) capsule famotidine 20 mg tablet 20 mg PO DAILY 05/25/24 02/08/25 History fluticasone propionate 50 50 mcg intranasal DAILY 05/25/24 02/08/25 History mcg/actuation nasal spray,suspension levothyroxine 112 mcg tablet 112 mcg PO DAILY 05/25/24 02/08/25 History metformin 500 mg tablet,extended 500 mg PO BID 05/25/24 02/08/25 History release 24 hr metoprolol succinate 100 mg 100 mg PO DAILY 05/25/24 02/08/25 History tablet,extended release 24 hr zolpidem 5 mg tablet 5 mg PO QHS 05/25/24 02/08/25 History Calcium Adult 1 tab-cap PO DAILY 06/13/24 02/08/25 History Vitamin B-6 1 tab-cap PO DAILY 06/13/24 02/08/25 History Vitamin C 1 tab-cap PO DAILY 06/13/24 02/08/25 History albuterol 90 mcg/actuation aerosol 90 mcg inhalation DAILY PRN SOB 06/13/24 02/08/25 History inhaler hydrochlorothiazide 25 mg tablet 25 mg PO DAILY 06/13/24 02/08/25 History umeclidinium 62.5 mcg-vilanterol 1 inh inhalation DAILY 06/13/24 02/08/25 History 25 mcg/actuation powdr for inhalation (Anoro Ellipta) zinc 1 tab-cap PO DAILY 06/13/24 02/08/25 History Allergies Allergy/AdvReac Type Severity Reaction Status Date / Time aspirin Allergy Unknown BLEEDING Verified 02/08/25 13:59 lisinopril Allergy Unknown Swelling Verified 02/08/25 13:59 Vital Signs Vital Signs - 24 hr 02/08/25 17:21 02/08/25 18:01 02/08/25 18:02 Temperature Pulse Rate 64 61 Respiratory Rate 15 14 Blood Pressure 158/73 H Pulse Oximetry 94 90 90 Oxygen Delivery Room Air Oxygen Flow Rate 02/08/25 18:25 02/08/25 18:30 02/08/25 18:45 Temperature Pulse Rate 63 68 63 Respiratory Rate 21 H 20 15 Blood Pressure Pulse Oximetry 95 97 Oxygen Delivery Oxygen Flow Rate 02/08/25 18:46 02/08/25 19:00 02/08/25 19:23 Temperature Pulse Rate 64 67 73 Respiratory Rate 15 16 17 Blood Pressure 141/65 H Pulse Oximetry 95 95 98 Oxygen Delivery Oxygen Flow Rate 02/08/25 19:31 02/08/25 19:50 02/08/25 20:05 Temperature Pulse Rate 63 61 68 Respiratory Rate 16 20 17 Blood Pressure Pulse Oximetry 97 98 97 Oxygen Delivery Oxygen Flow Rate 02/08/25 20:15 02/08/25 20:16 02/08/25 20:30 Temperature Pulse Rate 65 65 63 Respiratory Rate 16 17 16 Blood Pressure 138/67 Pulse Oximetry 97 98 96 Oxygen Delivery Oxygen Flow Rate 02/08/25 20:52 02/08/25 21:16 02/08/25 21:30 Temperature 97.6 F Pulse Rate 60 65 62 Respiratory Rate 14 20 22 H Blood Pressure 138/67 137/77 Pulse Oximetry 95 94 98 Oxygen Delivery Nasal Cannula Oxygen Flow Rate 2 02/08/25 21:30 02/08/25 22:00 02/08/25 23:40 Temperature 97.6 F Pulse Rate 62 62 67 Respiratory Rate 20 Blood Pressure 116/46 L Pulse Oximetry 97 Oxygen Delivery Oxygen Flow Rate 02/09/25 00:00 02/09/25 00:00 02/09/25 02:00 Temperature Pulse Rate 62 62 54 L Respiratory Rate 20 Blood Pressure Pulse Oximetry 97 Oxygen Delivery Nasal Cannula Oxygen Flow Rate 2 02/09/25 04:00 02/09/25 04:00 02/09/25 04:00 Temperature 98 F Pulse Rate 54 L 54 L 90 Respiratory Rate 20 20 Blood Pressure 131/74 Pulse Oximetry 97 98 Oxygen Delivery Nasal Cannula Oxygen Flow Rate 2 02/09/25 06:00 02/09/25 07:46 02/09/25 08:00 Temperature 98.3 F Pulse Rate 59 L 79 Respiratory Rate 20 Blood Pressure 126/55 L Pulse Oximetry 99 96 Oxygen Delivery Nasal Cannula Oxygen Flow Rate 2 02/09/25 08:00 02/09/25 10:00 02/09/25 10:39 Temperature Pulse Rate 63 60 61 Respiratory Rate Blood Pressure Pulse Oximetry Oxygen Delivery Oxygen Flow Rate 02/09/25 12:00 02/09/25 12:00 02/09/25 12:00 Temperature 97.7 F Pulse Rate 48 L 53 L Respiratory Rate 16 Blood Pressure 98/34 L Pulse Oximetry 97 98 Oxygen Delivery Nasal Cannula Oxygen Flow Rate 2 02/09/25 14:00 02/09/25 15:46 Temperature 98.9 F Pulse Rate 59 L 52 L Respiratory Rate 20 Blood Pressure 110/46 L Pulse Oximetry 99 Oxygen Delivery Oxygen Flow Rate Exam 2 Const: General: alert; No acute distress Orientation/consciousness: patient oriented x3 Limitations: no limitations HENMT: Head: normocephalic and atraumatic Ears: hearing grossly normal bilaterally Face/Nose/Sinus: Normal external nose present and Normal nares present Mouth: Yes Normal oral and palatal mucosa present and Yes moist mucous membranes Eyes: General: appearance normal, both eyes and all related structures C onjunctivae: conjunctivae normal Sclera: sclerae normal Pupils: Equal, round and reactive pupils present EOM: EOMs intact bilaterally Neck: Neck: normal visual inspection, full ROM, no lymphadenopathy, supple and no JVD Lymphatic: no lymphadenopathy noted Chest: Chest palpation & inspection: normal inspection of the chest Resp: Effort & Inspection: normal respiratory effort and able to speak in complete sentences Auscultation: clear to auscultation bilaterally P ercussion: percussion normal Cardio: Jugular venous distension: no JVD Rate: regular rate Rhythm: r egular rhythm Heart sounds: S1 normal heart sound present and S2 normal heart sound present Peripheral pulses: Peripheral pulses 2+ throughout GI: Inspection: normal to inspection GI Palp: Yes Tenderness to palpation present (GI) (Mild epigastric), No Guarding due to palpation present (GI) and No Rebound tenderness present Auscultation: normal bowel sounds : General: Yes no CVA tenderness Back/Spine/Pelvis: Back: no CVA tenderness Skin: General skin exam: normal color and dry skin Neuro: General: patient oriented x3, gait normal, moves all extremities, no focal motor deficits and CN's II-XI intact bilaterally Cranial nerves: Yes Equal, round and reactive pupils present Speech: normal speech Extrem: General: normal to inspection and capillary refill normal Results Labs 02/09/25 05:12 02/09/25 05:12 Labs: Abnormal lab results 02/08/25 02/08/25 02/09/25 Range/Units 21:46 21:52 05:12 WBC 12.9 H (4.5-10.0) K/mm3 MCHC 31.3 L (32-36) g/dl MPV 10.7 H (7.4-10.4) fl [place] # (Auto) 0.7 H (0.1-0.6) K/mm3 Abs Immat Gran (auto) 0.04 H (0.00-0.031) K/mm3 Absolute Neuts (auto) 9.1 H (1.3-6.7) K/mm3 POC Capillary Glucose (65-105) mg/dl Hemoglobin A1c 5.9 H (<5.7) % Magnesium 2.4 H (1.6-2.3) mg/dL % Saturation 19 L (20-50) % TSH (Reflex) 0.453 L (0.465-4.68) uIU/mL 02/09/25 02/09/25 02/09/25 Range/Units 08:49 12:01 15:19 WBC (4.5-10.0) K/mm3 MCHC (32-36) g/dl MPV (7.4-10.4) fl [place] # (Auto) (0.1-0.6) K/mm3 Abs Immat Gran (auto) (0.00-0.031) K/mm3 Absolute Neuts (auto) (1.3-6.7) K/mm3 POC Capillary Glucose 123 H 107 H 182 H (65-105) mg/dl Hemoglobin A1c (<5.7) % Magnesium (1.6-2.3) mg/dL % Saturation (20-50) % TSH (Reflex) (0.465-4.68) uIU/mL Diabetes panel 02/08/25 02/09/25 Range/Units 21:52 05:12 Sodium 139 (137-145) mmol/L Potassium 3.5 (3.4-5.0) mmol/L Chloride 104 (98-107) mmol/L Carbon Dioxide 29 (22-30) mmol/L BUN 10 (7-17) mg/dL Creatinine 0.74 (0.7-1.0) mg/dL Glucose 109 (65-110) mg/dL Hemoglobin A1c 5.9 H (<5.7) % Calcium 9.3 (8.4-10.2) mg/dL AST 28 (14-36) U/L ALT 21 (6-35) U/L Alkaline Phosphatase 99 (38-126) U/L Total Protein 7.3 (6.3-8.2) g/dL Albumin 4.3 (3.5-5.1) g/dL Calcium panel 02/09/25 Range/Units 05:12 Calcium 9.3 (8.4-10.2) mg/dL Albumin 4.3 (3.5-5.1) g/dL Pituitary panel 02/08/25 02/09/25 Range/Units 21:52 05:12 Sodium 139 (137-145) mmol/L Potassium 3.5 (3.4-5.0) mmol/L Chloride 104 (98-107) mmol/L Carbon Dioxide 29 (22-30) mmol/L BUN 10 (7-17) mg/dL Creatinine 0.74 (0.7-1.0) mg/dL Glucose 109 (65-110) mg/dL Calcium 9.3 (8.4-10.2) mg/dL Total T3 0.96 (0.82-1.58) NG/ML Adrenal panel 02/09/25 Range/Units 05:12 Sodium 139 (137-145) mmol/L Potassium 3.5 (3.4-5.0) mmol/L Chloride 104 (98-107) mmol/L Carbon Dioxide 29 (22-30) mmol/L BUN 10 (7-17) mg/dL Creatinine 0.74 (0.7-1.0) mg/dL Glucose 109 (65-110) mg/dL Calcium 9.3 (8.4-10.2) mg/dL Total Bilirubin 0.7 (0.2-1.3) mg/dL AST 28 (14-36) U/L ALT 21 (6-35) U/L Alkaline Phosphatase 99 (38-126) U/L Total Protein 7.3 (6.3-8.2) g/dL Albumin 4.3 (3.5-5.1) g/dL All other labs normal. Imaging Additional studies: ITS Impressions Chest X-Ray 02/08/25 14:29 Impression: 1: Bibasilar airspace disease may represent atelectasis, edema or pneumonia. Chest/Abdomen/Pelvis CTA 02/08/25 15:54 IMPRESSION: CHEST: 1. No pulmonary embolism. 2. No acute cardiopulmonary pathology. ABDOMEN/PELVIS: 1. No enhancing lesions in the liver. Differential include hepatocellular carcinoma versus arteriovenous shunting. Follow-up advised. 2. Filling defect in the portal vein which may be mixing of blood with contrast. Thrombus is less likely although cannot be excluded. Clinical correlation and if warranted ultrasound is advised. 3. Cholelithiasis. 4. Slight thickening of the wall of the sigmoid colon which may indicate colitis. Follow-up advised. 5. Thickened lower esophagus which may indicate reflux esophagitis. Abdomen Ultrasound 02/09/25 09:05 IMPRESSION: 1. Cholelithiasis with normal appearing gallbladder and no sonographic Perdue sign to suggest acute cholecystitis. 2. Diffuse hepatic steatosis with focal sparing along the gallbladder fossa. No correlate identified for the small regions of subcapsular hyperdensity/enhancement on prior CT most likely related to focal fatty sparing or transient hepatic attenuation difference. Consider pre and postcontrast MRI for further evaluation. Abdomen MRI 02/09/25 13:39 IMPRESSION: 1. . Mild diffuse hepatic steatosis with 5 mm macroscopic fat containing likely lipoma in the right hepatic lobe. No other hepatic lesions identified. No correlate identified for the appearance small ill-defined regions of peripheral enhancement at the liver on the prior arterial phase CT which would be most consistent with transient hepatic attenuation difference. 2. Persistent gallstone at the neck of the gallbladder with trace amount of pericholecystic fluid between the gallbladder and liver at the gallbladder fossa and could not exclude early acute cholecystitis although the Perdue sign was normal and the prior ultrasound. Could consider HIDA scan for more definitive determination. 3. Focal adenomyomatosis at the fundus of the gallbladder.
[2025-02-09] MEDS: SODIUM CHLORIDE 0.9% IV 1,000 ML 100 ML IV CONT (18:01)
[2025-02-09 20:47] LABS: Glucose Point of Care 96 mg/dl (65-105)
[2025-02-10] VITALS (24 sets, daily range): BP systolic 109–141; BP diastolic 51–71; PULSE 50–75; RESP 12–21; TEMP 36.6–36.9; O2SAT 92–99
[2025-02-10 04:56] LABS: Basophils Absolute Auto 0.1 K/mm3 (0.0-0.1); Basophils Percent Auto 0.4 % (0.2-1.2); Eosinophils Absolute Auto 0.3 K/mm3 (0-0.3); Eosinophils Percent Auto 2.3 % (0-4.4); Hematocrit 40.1 % (37.0-47.0); Hemoglobin 12.7 g/dL (12.0-15.0); Immature Granulocyte Absolute 0.06 K/mm3 (0.00-0.031); Immature Granulocyte Percent A 0.5 % (0-0.5); Lymphocytes Absolute Auto 2.73 K/mm3 (0.9-3.2); Lymphocytes Percent Auto 24.1 % (18.3-44.2); Mean Corpuscular HGB Conc 31.7 g/dl (32-36); Mean Corpuscular Hemoglobin 31.6 pg (26-34); Mean Corpuscular Volume 99.8 fl (80-100); Mean Platelet Volume 11.2 fl (7.4-10.4); Monocytes Absolute Auto 0.7 K/mm3 (0.1-0.6); Monocytes Percent Auto 6.5 % (2.6-8.5); Neutrophils Absolute Auto 7.5 K/mm3 (1.3-6.7); Neutrophils Percent Auto 66.2 % (45.5-73.1); Platelet Count Result 293 k/mm3 (150-375); Red Blood Count 4.02 M/mm3 (4.2-5.4); Red Cell Distribution Width 12.9 % (11.5-14.5); White Blood Count 11.4 K/mm3 (4.5-10.0)
[2025-02-10 05:13] LABS: INR 1.1; Prothrombin Time 14.7 Seconds (11.1-14.7)
[2025-02-10 05:14] LABS: Partial Thromboplastin Time 26.9 Seconds (22.3-36.8)
[2025-02-10] MEDS: LEVOTHYROXINE SODIUM 112 MCG TABLET PO (06:07)
--- NOTE | 2025-02-10 07:49 | PM.PNCARD ---
Progress Note: A&P Assessment and Plan (1) PAF (paroxysmal atrial fibrillation): Code(s): I48.0 - Paroxysmal atrial fibrillation Status: Acute Assessment and Plan: Back in sinus rhythm. [id number]. Was on heparin drip but on hold in anticipation of liver biopsy. On Metoprolol. After GI procedure then start Eliquis 5 mg BID if OK with GI service. Due to bradycardia, decrease Metoprolol Succinate 100 mg to 25 mg daily. (2) HTN (hypertension): Code(s): I10 - Essential (primary) hypertension Status: Acute Assessment and Plan: Stable. (3) Dyslipidemia: Code(s): E78.5 - Hyperlipidemia, unspecified Status: Acute Assessment and Plan: On Atorvastatin. Subjective Date/time seen: 02/10/25 07:49 Interval history: Denies chest pain or sob. Exam Const: General: cooperative, healthy appearing and comfortable Orientation/consciousness: oriented to person, oriented to place and oriented to time Resp: Auscultation: clear to auscultation bilaterally, no crackles, no rales, no rhonchi and no wheezes Cardio: Rate: bradycardic Rhythm: regular rhythm Heart sounds: no murmurs Peripheral pulses: dorsalis pedis present Neuro: General: oriented to person, oriented to place and oriented to time Extrem: Right lower extremity: no edema Left lower extremity: no edema Objective Data Vital Signs Vital Signs: Vital Signs - 24 hr 02/09/25 08:00 02/09/25 08:00 02/09/25 10:00 Temperature Pulse Rate 63 60 Respiratory Rate Blood Pressure Pulse Oximetry 96 Oxygen Delivery Nasal Cannula Oxygen Flow Rate 2 Fraction of Inspired Oxygen 02/09/25 10:39 02/09/25 12:00 02/09/25 12:00 Temperature 97.7 F Pulse Rate 61 48 L Respiratory Rate 16 Blood Pressure 98/34 L Pulse Oximetry 97 98 Oxygen Delivery Nasal Cannula Oxygen Flow Rate 2 Fraction of Inspired Oxygen 02/09/25 12:00 02/09/25 14:00 02/09/25 15:46 Temperature 98.9 F Pulse Rate 53 L 59 L 52 L Respiratory Rate 20 Blood Pressure 110/46 L Pulse Oximetry 99 Oxygen Delivery Oxygen Flow Rate Fraction of Inspired Oxygen 02/09/25 16:00 02/09/25 16:00 02/09/25 18:00 Temperature Pulse Rate 53 L 58 L Respiratory Rate Blood Pressure Pulse Oximetry 97 Oxygen Delivery Nasal Cannula Oxygen Flow Rate 2 Fraction of Inspired Oxygen 02/09/25 19:52 02/09/25 20:00 02/09/25 20:00 Temperature 98.7 F Pulse Rate 51 L 57 L 57 L Respiratory Rate 20 20 Blood Pressure 138/47 L Pulse Oximetry 100 97 Oxygen Delivery Nasal Cannula Oxygen Flow Rate 2 Fraction of Inspired Oxygen 28 02/09/25 20:05 02/09/25 21:24 02/09/25 23:50 Temperature Pulse Rate 54 L 49 L 54 L Respiratory Rate 20 20 Blood Pressure Pulse Oximetry 97 97 Oxygen Delivery Nasal Cannula Nasal Cannula Oxygen Flow Rate 2 2 Fraction of Inspired Oxygen 28 28 02/09/25 23:50 02/10/25 00:00 02/10/25 01:58 Temperature 97.8 F Pulse Rate 54 L 50 L 52 L Respiratory Rate 20 Blood Pressure 112/51 L Pulse Oximetry 97 Oxygen Delivery Oxygen Flow Rate Fraction of Inspired Oxygen 02/10/25 04:00 02/10/25 04:00 02/10/25 04:00 Temperature 97.8 F Pulse Rate 58 L 56 L 56 L Respiratory Rate 20 20 Blood Pressure 131/58 L Pulse Oximetry 99 99 Oxygen Delivery Nasal Cannula Oxygen Flow Rate 2 Fraction of Inspired Oxygen 28 02/10/25 06:00 Temperature Pulse Rate 54 L Respiratory Rate Blood Pressure Pulse Oximetry Oxygen Delivery Oxygen Flow Rate Fraction of Inspired Oxygen Intake/Output Intake/Output: Intake & Output 02/07/25 02/08/25 02/09/25 02/10/25 23:59 23:59 23:59 23:59 Intake Total 1720 Output Total 300 1100 Balance -300 620 Meds/Results Medications: Active Medications Generic Name Dose Route Start Last Admin Trade Name Freq PRN Reason Stop Dose Admin Acetaminophen 650 mg 02/08/25 22:39 02/09/25 10:39 Acetaminophen 325 Mg Tablet PO 650 mg Q4H PRN Administration pain rated 1-6 Albuterol 2 puff 02/08/25 22:43 Albuterol Sulfate (*Sp) Aerosol 1 Puff INHALATION Q4HRT PRN Shortness Of Breath Alprazolam 0.5 mg 02/08/25 22:40 Alprazolam (*Crx) 0.5 Mg Tablet PO HS PRN Sleep initiation Amlodipine Besylate 10 mg 02/09/25 09:00 02/09/25 10:38 Amlodipine Besylate 10 Mg Tablet PO 10 mg DAILY FELIX Administration Atorvastatin Calcium 20 mg 02/09/25 09:00 02/09/25 10:38 Atorvastatin 20 Mg Tablet PO 20 mg DAILY FELIX Administration Clobetasol Propionate 1 applic 02/08/25 22:44 Clobetasol Propionate 0.05% Cream 15 Gm TOPICAL DAILY PRN Itching Dextrose 12.5 gm 02/08/25 22:42 Dextrose 50% 25 Gm/50 Ml Syringe IV PUSH PRN PRN Hypoglycemia Protocol Ergocalciferol 1,250 mcg 02/12/25 09:00 Ergocalciferol (Vitamin D2) 1,250 Mcg (50,000 Units) Capsule PO WEEKLY FELIX Famotidine 20 mg 02/09/25 09:00 02/09/25 10:38 Famotidine 20 Mg Tablet PO 20 mg DAILY FELIX Administration Fluticasone Propionate 2 spray 02/09/25 09:00 02/09/25 10:40 Fluticasone Propionate 0.05% Na Spr 16 Gm Btl (*Bkc) NASAL 2 spray DAILY FELIX Administration Glucagon 1 mg 02/08/25 22:42 Glucagon For Inj 1 Mg Vial IM PRN PRN Hypoglycemia Protocol Glucose 15 gm 02/08/25 22:42 Glucose Oral Gel 15 Gm Of Glucse In 37.5 Gm Tube PO PRN PRN Hypoglycemia Protocol Dextrose 1,000 mls @ 100 mls/hr 02/08/25 22:42 Dextrose 5% 1,000 Ml IVPB PRN PRN Hypoglycemia Protocol Cefazolin Sodium 2 gm in 50 mls @ 100 mls/hr 02/10/25 10:00 Ancef 2 Gm/D5w 50 Ml IVPB 02/10/25 10:29 ONCE ONE Sodium Chloride 1,000 mls @ 100 mls/hr 02/09/25 17:15 02/09/25 18:01 Normal Saline Iv IV CONT 100 mls/hr .Q10H FELIX Administration Insulin Aspart 3 - 6 units 02/09/25 08:00 02/09/25 16:45 Insulin Aspart (*Bkc) 100 Units/Ml SUB-Q Not Given TIDWM FELIX Protocol Levothyroxine Sodium 112 mcg 02/09/25 06:30 02/10/25 06:07 Levothyroxine Sodium 112 Mcg Tablet PO 112 mcg DAILY@0630 FELIX Administration Metoclopramide HCl 10 mg 02/08/25 22:39 02/09/25 16:31 Metoclopramide Hcl Inj 10 Mg/2 Ml Vial IV PUSH 10 mg Q6HR PRN Administration nausea/vomiting Metoprolol Succinate 25 mg 02/10/25 09:00 Metoprolol Succinate Ext Rel 25 Mg Tabcr PO DAILY [facility] Miscellaneous Information 0 each 02/08/25 00:01 Clobetasol Add Site Of Use XX 03/10/25 00:00 CLARIFY FELIX Morphine Sulfate 4 mg 02/08/25 22:39 Morphine Sulfate (*Crx) 4 Mg/Ml Inj IV PUSH Q4H PRN Pain Rated 7-10 Ondansetron HCl 4 mg 02/08/25 18:27 Ondansetron Inj 4 Mg/2 Ml Vial IV PUSH Q4H PRN Nausea Pantoprazole Sodium 40 mg 02/09/25 09:00 02/09/25 10:40 Pantoprazole Sodium Iv 40 Mg Vial IV PUSH 40 mg QAM FELIX Administration Polyethylene Glycol 17 gm 02/09/25 15:53 02/09/25 16:31 Polyethylene Glycol 3350 17 Gm Powd.Pack PO 17 gm QAM FLEIX Administration Trazodone HCl 100 mg 02/08/25 22:40 02/09/25 20:19 Trazodone Hcl 50 Mg Tablet PO 100 mg HS FELIX Administration Umeclidinium/Vilanterol 1 puff 02/09/25 08:00 02/09/25 08:20 Umeclidinium/Vilanterol 62.5-25 Mcg Ellipta INHALATION 1 puff DAILYRT FELIX Administration Radiology Results: ITS Impressions Chest X-Ray 02/08/25 14:29 Impression: 1: Bibasilar airspace disease may represent atelectasis, edema or pneumonia. Chest/Abdomen/Pelvis CTA 02/08/25 15:54 IMPRESSION: CHEST: 1. No pulmonary embolism. 2. No acute cardiopulmonary pathology. ABDOMEN/PELVIS: 1. No enhancing lesions in the liver. Differential include hepatocellular carcinoma versus arteriovenous shunting. Follow-up advised. 2. Filling defect in the portal vein which may be mixing of blood with contrast. Thrombus is less likely although cannot be excluded. Clinical correlation and if warranted ultrasound is advised. 3. Cholelithiasis. 4. Slight thickening of the wall of the sigmoid colon which may indicate colitis. Follow-up advised. 5. Thickened lower esophagus which may indicate reflux esophagitis. Abdomen Ultrasound 02/09/25 09:05 IMPRESSION: 1. Cholelithiasis with normal appearing gallbladder and no sonographic Perdue sign to suggest acute cholecystitis. 2. Diffuse hepatic steatosis with focal sparing along the gallbladder fossa. No correlate identified for the small regions of subcapsular hyperdensity/enhancement on prior CT most likely related to focal fatty sparing or transient hepatic attenuation difference. Consider pre and postcontrast MRI for further evaluation. Abdomen MRI 02/09/25 13:39 IMPRESSION: 1. . Mild diffuse hepatic steatosis with 5 mm macroscopic fat containing likely lipoma in the right hepatic lobe. No other hepatic lesions identified. No correlate identified for the appearance small ill-defined regions of peripheral enhancement at the liver on the prior arterial phase CT which would be most consistent with transient hepatic attenuation difference. 2. Persistent gallstone at the neck of the gallbladder with trace amount of pericholecystic fluid between the gallbladder and liver at the gallbladder fossa and could not exclude early acute cholecystitis although the Perdue sign was normal and the prior ultrasound. Could consider HIDA scan for more definitive determination. 3. Focal adenomyomatosis at the fundus of the gallbladder. Labs Labs: Laboratory Results - last 24 hr 02/09/25 02/09/25 02/09/25 08:49 12:01 15:19 WBC RBC Hgb Hct MCV MCH MCHC RDW Plt Count MPV Immature Gran % (Auto) Neut % (Auto) Lymph % (Auto) [place] % (Auto) Eos % (Auto) Baso % (Auto) Lymph # (Auto) [place] # (Auto) Eos # (Auto) Baso # (Auto) Abs Immat Gran (auto) Absolute Neuts (auto) Absolute Nucleated RBC Nucleated RBC % PT INR APTT POC Capillary Glucose 123 H 107 H 182 H Blood Type Antibody Screen 02/09/25 02/10/25 02/10/25 20:35 04:05 04:31 WBC 11.4 H RBC 4.02 L Hgb 12.7 Hct 40.1 MCV 99.8 MCH 31.6 MCHC 31.7 L RDW 12.9 Plt Count 293 MPV 11.2 H Immature Gran % (Auto) 0.5 Neut % (Auto) 66.2 Lymph % (Auto) 24.1 [place] % (Auto) 6.5 Eos % (Auto) 2.3 Baso % (Auto) 0.4 Lymph # (Auto) 2.73 [place] # (Auto) 0.7 H Eos # (Auto) 0.3 Baso # (Auto) 0.1 Abs Immat Gran (auto) 0.06 H Absolute Neuts (auto) 7.5 H Absolute Nucleated RBC 0.000 Nucleated RBC % 0.0 PT 14.7 INR 1.1 APTT 26.9 POC Capillary Glucose 96 Blood Type O Positive Antibody Screen Negative
[2025-02-10] MEDS: UMECLIDINIUM/VILANTEROL 62.5-25 MCG ELLIPTA 1 PUFF INHALATION (07:50)
[2025-02-10 07:52] LABS: Glucose Point of Care 114 mg/dl (65-105)
[2025-02-10 08:07] LABS: Potassium 3.9 mmol/L (3.4-5.0)
[2025-02-10 08:08] LABS: Alanine Aminotransferase 19 U/L (6-35); Albumin Level 3.8 g/dL (3.5-5.1); Alkaline Phosphatase 97 U/L (38-126); Anion Gap 7 mmol/L (4-12); Aspartate Amino Transferase 44 U/L (14-36); Bilirubin,Total 0.6 mg/dL (0.2-1.3); Blood Urea Nitrogen 10 mg/dL (7-17); Calcium 8.9 mg/dL (8.4-10.2); Carbon Dioxide 25 mmol/L (22-30); Chloride 107 mmol/L (98-107); Estimated CRCL calculation 74 ml/min; Estimated Glomerular Filt Rate > 60; Glucose 101 mg/dL (65-110); Magnesium 2.2 mg/dL (1.6-2.3); Sodium 139 mmol/L (137-145); Total Protein 6.6 g/dL (6.3-8.2)
--- NOTE | 2025-02-10 09:23 | P.CONGI_ITS ---
<Statement entered by Irwin Ozuna MD - 02/10/25 14:33> I have reviewed our nurse practitioner's note, examined the patient and pertinent laboratory data. We have discussed the plan extensively and agreed with was stated in the note. The patient underwent laparoscopic cholecystectomy. No need for preoperative ERCP. However, patient giving her diabetes, obesity and liver steatosis, warrants a GI clinic evaluation to rule out concomitant liver fibrosis. We can arrange this as an outpatient. Assessment and Plan Assessment and plan (1) Acute calculous cholecystitis: Code(s): K80.00 - Calculus of gallbladder with acute cholecystitis without obstruction Status: Acute (2) Hepatic lesion: Code(s): K76.9 - Liver disease, unspecified Status: Acute (3) Esophagitis: Code(s): K20.90 - Esophagitis, unspecified without bleeding Status: Acute (4) Colitis: Code(s): K52.9 - Noninfective gastroenteritis and colitis, unspecified Status: Acute (5) Hepatic steatosis: Code(s): K76.0 - Fatty (change of) liver, not elsewhere classified Status: Acute Plan 1. Acute cholecystitis secondary to gallstone: Multiple forms of imaging showed persistent gallstone at the neck of the gallbladder and focal adenomyomatosis at the fundus of the gallbladder. Doppler showed gallbladder stone but no evidence of hepatic or portal vein thrombus. Findings likely cause of acute cholecystitis. Surgery is on the patient's case and saw her yesterday with plans of laparoscopic cholecystectomy, possible open. LFTs were normal on presentation and today LFTs normal except very mildly elevated AST at 44. Lipase normal at 39. * Patient pending cholecystectomy, further recommendations per surgery * No indication for intervention per GI 2. Hepatic lesion/hepatic steatosis: Initial CTA revealed 9 mm enhancing lesions seen in the left lobe of the liver which may be HCC versus arteriovenous shunting. Follow-up advised. Another focal infiltrate is also seen in the subcapsular area of the right lobe measuring 1.3 cm. Doppler showed no evidence of hepatic or portal vein thrombosis seen. MRI abdomen showed mild diffuse hepatic steatosis with 5 mm macroscopic fat containing likely lipoma in the right hepatic lobe. No other hepatic lesions identified. No correlate identified for the appearance small ill-defined regions of peripheral enhancement at the liver on the prior arterial phase CT which would be most consistent with transient hepatic attenuation difference. LFTs on admission were normal and today normal except mildly elevated AST of 44. Patient has multiple risk factors for hepatic steatosis including diabetes, HLD and obesity * According to initial H&P the patient's heparin was on hold pending liver biopsy, but based on above findings a liver biopsy is not indicated. Bx order not seen in chart so this was likely cancelled * Cardiology recommended Eliquis 5 mg b.i.d. and starting of anticoagulation will be determined by surgery who has planned for cholecystectomy * Further workup and management of hepatic steatosis can be done as outpatient including Fibroscan 3. Abnormal imaging [id number]: EGD history unknown last colonoscopy June of 2024 showed colon polyp, diverticulosis, and small internal hemorrhoids but no findings consistent with acute or chronic colitis. CTA this admission revealed slight thickening of the wall of the sigmoid colon which may indicate colitis and thickened lower esophagus which may indicate reflux esophagitis. On hospital presentation WBC is 15.5 and today 11.4. Prior to admission patient was on famotidine 20 mg daily. * Continue Protonix 40 mg and famotidine daily * Can further discuss abnormal findings as outpatient to discuss possible endoscopic evaluation following resolution of acute illness Thank you very much for allowing me to share in the care of this very nice patient. This report may have been done utilizing a voice recognition system. Attempts have been made to correct errors. However, there may be uncorrected grammatical, spelling, and recognition errors present. GI Consult Note Consult date/time: 02/10/25 09:23 Reason for consult: Gallstones HPI: Kimberly Delgado is a 74 year old female with PMSH of EILEEN, HTN, hypothyroidism, diabetes, s/p abdominal hernia repair, asthma, COPD, CHF, colon polyps, insomnia, and obesity. Patient presented to the emergency room 02/08/2025 with complaints of nausea,vomiting and abdominal pain after eating a turkey sandwich. Patient admitted for new onset AFib and hypokalemia. GI has been consulted for gallstones. Patient is [place] speaking so subjective information with be obtained by Dr. Ozuna when her rounds today. Patient was admitted for new onset AFib with RVR which spontaneously converted back to sinus rhythm, possible new onset CHF, and gallstones with prolonged nausea, vomiting and epigastric pain. According to documentation patient ate a turkey sandwich yesterday which was then followed by severe abdominal pain and persistent vomiting. No improvement with Zofran and and partial improvement with morphine and Reglan. ENDOSCOPY HISTORY: EGD: No known prior EGD COLONOSCOPY: 06/13/[address] Herrera for Hx of colon polyps Findings: There was a single 3 mm polyp observed in the ascending colon. Cold snare polypectomy performed polyp was completely excised but retrieval was unsuccessful A few diverticula were present the left colon that were not actively bleeding A few small size internal hemorrhoids seen in the rectum that were not actively bleeding LABS AND STOOL STUDIES: Labs February 08-2024: Sodium 139, potassium 3.9, BUN 10, creatinine 0.70, GFR >60, calcium 8.9, magnesium 2.2 WBC 11, Hgb 13, Hct 40, MCV 100, platelets 293, INR 1.1 Total bilirubin 0.6, AST 44, ALT 19, Alkaline Phos 97, albumin 3.8 Iron 69, TIBC 359, iron saturation 19%, ferritin 100 TSH 0.453, T4 1.44, T3 0.96 IMAGING: MRI abdomen with and without contrast 02/09/2025: IMPRESSION: 1. . Mild diffuse hepatic steatosis with 5 mm macroscopic fat containing likely lipoma in the right hepatic lobe. No other hepatic lesions identified. No correlate identified for the appearance small ill-defined regions of peripheral enhancement at the liver on the prior arterial phase CT which would be most consistent with transient hepatic attenuation difference. 2. Persistent gallstone at the neck of the gallbladder with trace amount of pericholecystic fluid between the gallbladder and liver at the gallbladder fossa and could not exclude early acute cholecystitis although the Perdue sign was normal and the prior ultrasound. Could consider HIDA scan for more definitive determination. 3. Focal adenomyomatosis at the fundus of the gallbladder. Arterial/peripheral duplex 02/08/2025: FINDINGS/impression: No evidence of hepatic or portal vein thrombosis seen. Gallbladder stone. CTA chest/abd/pelvis w/contrast 02/08/2025: --UPPER ABDOMINAL ORGANS: Liver: 9 mm enhancing lesions seen in the left lobe of the liver which may be HCC versus arteriovenous shunting. Follow-up advised. Another focal infiltrate is also seen in the subcapsular area of the right lobe measuring 1.3 cm. Follow- up advised. Filling defect in the portal vein versus mixing of blood with contrast is seen. Clinical correlation and if clinically warranted ultrasound evaluation advised. Gallbladder: Cholelithiasis. Spleen: Normal. Small hypodensity suggestive of a cyst is seen in the inferior portion of the spleen. Stomach/duodenum: Thickened lower esophagus suggestive of reflux esophagitis. Pancreas: Normal. Slightly prominent pancreatic duct. Adrenals: Normal. Kidneys: Right kidney lower pole cyst is seen measuring 1.6 cm. --PELVIC ORGANS: The bladder shows slightly thickened wall may indicate cystitis. Clinical correlation advised. No bladder stones. --BOWEL AND MESENTERY: Colon: Mild diverticulosis without diverticulitis sigmoid colon. Slightly thickened wall of the sigmoid colon which may indicate colitis. Follow-up advised. Normal appendix. Small Bowel: Normal. No obstruction. Peritoneum/mesentery: No free air or free fluid. No mesenteric lymphadenopathy. --RETROPERITONEUM: Mild atheromatous disease of the abdominal aorta. No retroperitoneal lymphadenopathy. IMPRESSION: CHEST: 1. No pulmonary embolism. 2. No acute cardiopulmonary pathology. ABDOMEN/PELVIS: 1. No enhancing lesions in the liver. Differential include hepatocellular carcinoma versus arteriovenous shunting. Follow-up advised. 2. Filling defect in the portal vein which may be mixing of blood with contrast. Thrombus is less likely although cannot be excluded. Clinical correlation and if warranted ultrasound is advised. 3. Cholelithiasis. 4. Slight thickening of the wall of the sigmoid colon which may indicate colitis. Follow-up advised. 5. Thickened lower esophagus which may indicate reflux esophagitis. Abdominal Ultrasound 02/09/2025: IMPRESSION: 1. Cholelithiasis with normal appearing gallbladder and no sonographic Perdue sign to suggest acute cholecystitis. 2. Diffuse hepatic steatosis with focal sparing along the gallbladder fossa. No correlate identified for the small regions of subcapsular hyperdensity/enhancement on prior CT most likely related to focal fatty sparing or transient hepatic attenuation difference. Consider pre and postcontrast MRI for further evaluation. Review of Systems 2 Review of Systems: ROS unobtainable: Yes other [facility] Past Medical History Medical History Type 2 diabetes mellitus Metabolic syndrome Abnormal glucose Hypothyroidism Colon polyp HTN (hypertension) EILEEN (obstructive sleep apnea) Morbid obesity Family History Family History Other Cerebrovascular accident Diabetes mellitus Family history of arthritis Family history of blood dyscrasia Family history of cardiovascular disease Family history of elevated blood lipids Family history of genitourinary disease Family history of hearing loss Family history of migraine headaches Family history of obesity Hypertension Malignant neoplasm of prostate Social History Social History Smoking packs per day: 3 Smoking cigarettes per day: 60.0 Smoking status: Former smoker Tobacco type: cigarettes Alcohol intake: never Substance use: never Substance use type: does not use Do You Feel Safe in your Home?: Yes Lack of Transportation: No Lack of Food: Never True Current Housing: I Have Housing Concerned About Future Housing: No Difficulty Paying Gas/Electric Bills: No Difficulty Paying for Meds: No Currently Unemployed: No Education: High School Diploma/GED Difficulty w/ Childcare or Family Care: No Living arrangements: alone Spiritual care concerns: No Meds Home Medications and Allergies Home Medications ?Medication ?Instructions ?Recorded ?Confirmed ?Type amlodipine 10 mg tablet 10 mg PO DAILY 05/25/24 02/08/25 History atorvastatin 20 mg tablet 20 mg PO DAILY 05/25/24 02/08/25 History clobetasol 0.05 % topical cream 1 applic topical DAILY PRN Itching 05/25/24 02/08/25 History dulaglutide 0.75 mg/0.5 mL 0.75 mg subcut WEEKLY 05/25/24 02/08/25 History subcutaneous pen injector (Trulicity) ergocalciferol (vitamin D2) 1,250 1,250 mcg PO WEEKLY 05/25/24 02/08/25 History mcg (50,000 unit) capsule famotidine 20 mg tablet 20 mg PO DAILY 05/25/24 02/08/25 History fluticasone propionate 50 50 mcg intranasal DAILY 05/25/24 02/08/25 History mcg/actuation nasal spray,suspension levothyroxine 112 mcg tablet 112 mcg PO DAILY 05/25/24 02/08/25 History metformin 500 mg tablet,extended 500 mg PO BID 05/25/24 02/08/25 History release 24 hr metoprolol succinate 100 mg 100 mg PO DAILY 05/25/24 02/08/25 History tablet,extended release 24 hr zolpidem 5 mg tablet 5 mg PO QHS 05/25/24 02/08/25 History Calcium Adult 1 tab-cap PO DAILY 06/13/24 02/08/25 History Vitamin B-6 1 tab-cap PO DAILY 06/13/24 02/08/25 History Vitamin C 1 tab-cap PO DAILY 06/13/24 02/08/25 History albuterol 90 mcg/actuation aerosol 90 mcg inhalation DAILY PRN SOB 06/13/24 02/08/25 History inhaler hydrochlorothiazide 25 mg tablet 25 mg PO DAILY 06/13/24 02/08/25 History umeclidinium 62.5 mcg-vilanterol 1 inh inhalation DAILY 06/13/24 02/08/25 History 25 mcg/actuation powdr for inhalation (Anoro Ellipta) zinc 1 tab-cap PO DAILY 06/13/24 02/08/25 History Allergies Allergy/AdvReac Type Severity Reaction Status Date / Time aspirin Allergy Unknown BLEEDING Verified 02/08/25 13:59 lisinopril Allergy Unknown Swelling Verified 02/08/25 13:59 Vital Signs Vital Signs - 24 hr 02/09/25 10:00 02/09/25 10:39 02/09/25 12:00 Temperature Pulse Rate 60 61 Respiratory Rate Blood Pressure Pulse Oximetry 97 Oxygen Delivery Nasal Cannula Oxygen Flow Rate 2 Fraction of Inspired Oxygen 02/09/25 12:00 02/09/25 12:00 02/09/25 14:00 Temperature 97.7 F Pulse Rate 48 L 53 L 59 L Respiratory Rate 16 Blood Pressure 98/34 L Pulse Oximetry 98 Oxygen Delivery Oxygen Flow Rate Fraction of Inspired Oxygen 02/09/25 15:46 02/09/25 16:00 02/09/25 16:00 Temperature 98.9 F Pulse Rate 52 L 53 L Respiratory Rate 20 Blood Pressure 110/46 L Pulse Oximetry 99 97 Oxygen Delivery Nasal Cannula Oxygen Flow Rate 2 Fraction of Inspired Oxygen 02/09/25 18:00 02/09/25 19:52 02/09/25 20:00 Temperature 98.7 F Pulse Rate 58 L 51 L 57 L Respiratory Rate 20 20 Blood Pressure 138/47 L Pulse Oximetry 100 97 Oxygen Delivery Nasal Cannula Oxygen Flow Rate 2 Fraction of Inspired Oxygen 28 02/09/25 20:00 02/09/25 20:05 02/09/25 21:24 Temperature Pulse Rate 57 L 54 L 49 L Respiratory Rate 20 Blood Pressure Pulse Oximetry 97 Oxygen Delivery Nasal Cannula Oxygen Flow Rate 2 Fraction of Inspired Oxygen 28 02/09/25 23:50 02/09/25 23:50 02/10/25 00:00 Temperature 97.8 F Pulse Rate 54 L 54 L 50 L Respiratory Rate 20 20 Blood Pressure 112/51 L Pulse Oximetry 97 97 Oxygen Delivery Nasal Cannula Oxygen Flow Rate 2 Fraction of Inspired Oxygen 28 02/10/25 01:58 02/10/25 04:00 02/10/25 04:00 Temperature 97.8 F Pulse Rate 52 L 58 L 56 L Respiratory Rate 20 20 Blood Pressure 131/58 L Pulse Oximetry 99 99 Oxygen Delivery Nasal Cannula Oxygen Flow Rate 2 Fraction of Inspired Oxygen 28 02/10/25 04:00 02/10/25 06:00 02/10/25 07:50 Temperature Pulse Rate 56 L 54 L Respiratory Rate Blood Pressure Pulse Oximetry 97 Oxygen Delivery Nasal Cannula Oxygen Flow Rate 2 Fraction of Inspired Oxygen 02/10/25 08:00 Temperature 98.1 F Pulse Rate 53 L Respiratory Rate 18 Blood Pressure 127/71 Pulse Oximetry 99 Oxygen Delivery Oxygen Flow Rate Fraction of Inspired Oxygen Exam 2 Narrative: Exam per physican Results Labs 02/10/25 04:05 02/10/25 04:05 Labs: Short CBC 02/10/25 Range/Units 04:05 WBC 11.4 H (4.5-10.0) K/mm3 Hgb 12.7 (12.0-15.0) g/dL Hct 40.1 (37.0-47.0) % Plt Count 293 (150-375) k/mm3 [facility] 02/10/25 04:05 Sodium 139 Potassium 3.9 Chloride 107 Carbon Dioxide 25 BUN 10 Creatinine 0.70 Glucose 101 Calcium 8.9 Liver Function 02/10/25 Range/Units 04:05 Total Bilirubin 0.6 (0.2-1.3) mg/dL AST 44 H (14-36) U/L ALT 19 (6-35) U/L Alkaline Phosphatase 97 (38-126) U/L Albumin 3.8 (3.5-5.1) g/dL
[2025-02-10 09:48] LABS: Glucose Point of Care 113 mg/dl (65-105)
--- NOTE | 2025-02-10 10:33 | WPDHPUPDATE1 ---
History and Physical Update Update Date/Time: 02/10/25 10:33 History and Physical has been reviewed, including an updated exam of the patient. There are NO changes in the patient's condition. Risks, benefits, and alternatives have been discussed and questions answered. Patient agrees to proceed with procedure.
--- NOTE | 2025-02-10 11:12 | P.PNAN_ITS ---
Anes - Initial Pre Proc Eval Procedure: Operation Date: 02/10/25 10:30 Proposed Procedures p Laparoscopic Cholecystectomy, Possible Open - Amador Leonardo DO Date/Time: 02/10/25 11:12 Surgeon: Diogo Elise MD Pre Op Diagnosis: Chest pain Patient Data Age: 74 Gender: F Height: 1.63 m Weight: 113.4 kg Last Vital Signs Temp 36.7 C 02/10/25 08:00 Pulse 53 L 02/10/25 08:00 Resp 18 02/10/25 08:00 BP 127/71 02/10/25 08:00 Pulse Ox 99 02/10/25 08:00 O2 Del Method Nasal Cannula 02/10/25 07:50 O2 Flow Rate 2 02/10/25 07:50 FiO2 28 02/10/25 04:00 Allergies Allergy/AdvReac Type Severity Reaction Status Date / Time aspirin Allergy Unknown BLEEDING Verified 02/08/25 13:59 lisinopril Allergy Unknown Swelling Verified 02/08/25 13:59 Home Medications ?Medication ?Instructions ?Recorded ?Confirmed ?Type amlodipine 10 mg tablet 10 mg PO DAILY 05/25/24 02/08/25 History atorvastatin 20 mg tablet 20 mg PO DAILY 05/25/24 02/08/25 History clobetasol 0.05 % topical cream 1 applic topical DAILY PRN Itching 05/25/24 02/08/25 History dulaglutide 0.75 mg/0.5 mL 0.75 mg subcut WEEKLY 05/25/24 02/08/25 History subcutaneous pen injector (Trulicity) ergocalciferol (vitamin D2) 1,250 1,250 mcg PO WEEKLY 05/25/24 02/08/25 History mcg (50,000 unit) capsule famotidine 20 mg tablet 20 mg PO DAILY 05/25/24 02/08/25 History fluticasone propionate 50 50 mcg intranasal DAILY 05/25/24 02/08/25 History mcg/actuation nasal spray,suspension levothyroxine 112 mcg tablet 112 mcg PO DAILY 05/25/24 02/08/25 History metformin 500 mg tablet,extended 500 mg PO BID 05/25/24 02/08/25 History release 24 hr metoprolol succinate 100 mg 100 mg PO DAILY 05/25/24 02/08/25 History tablet,extended release 24 hr zolpidem 5 mg tablet 5 mg PO QHS 05/25/24 02/08/25 History Calcium Adult 1 tab-cap PO DAILY 06/13/24 02/08/25 History Vitamin B-6 1 tab-cap PO DAILY 06/13/24 02/08/25 History Vitamin C 1 tab-cap PO DAILY 06/13/24 02/08/25 History albuterol 90 mcg/actuation aerosol 90 mcg inhalation DAILY PRN SOB 06/13/24 02/08/25 History inhaler hydrochlorothiazide 25 mg tablet 25 mg PO DAILY 06/13/24 02/08/25 History umeclidinium 62.5 mcg-vilanterol 1 inh inhalation DAILY 06/13/24 02/08/25 History 25 mcg/actuation powdr for inhalation (Anoro Ellipta) zinc 1 tab-cap PO DAILY 06/13/24 02/08/25 History Laboratory Tests 02/09/25 02/09/25 02/09/25 12:01 15:19 20:35 WBC RBC Hgb Hct MCV MCH MCHC RDW Plt Count MPV Immature Gran % (Auto) Neut % (Auto) Lymph % (Auto) [place] % (Auto) Eos % (Auto) Baso % (Auto) Lymph # (Auto) [place] # (Auto) Eos # (Auto) Baso # (Auto) Abs Immat Gran (auto) Absolute Neuts (auto) Absolute Nucleated RBC Nucleated RBC % PT INR APTT Sodium Potassium Chloride Carbon Dioxide Anion Gap BUN Creatinine Estim Creat Clear Calc Estimated GFR Glucose POC Capillary Glucose 107 H mg/dl 182 H mg/dl 96 mg/dl (65-105) (65-105) (65-105) Calcium Magnesium Total Bilirubin AST ALT Alkaline Phosphatase Total Protein Albumin Blood Type Antibody Screen 02/10/25 02/10/25 02/10/25 04:05 04:31 07:32 WBC 11.4 H K/mm3 (4.5-10.0) RBC 4.02 L M/mm3 (4.2-5.4) Hgb 12.7 g/dL (12.0-15.0) Hct 40.1 % (37.0-47.0) MCV 99.8 fl (80-100) MCH 31.6 pg (26-34) MCHC 31.7 L g/dl (32-36) RDW 12.9 % (11.5-14.5) Plt Count 293 k/mm3 (150-375) MPV 11.2 H fl (7.4-10.4) Immature Gran % (Auto) 0.5 % (0-0.5) Neut % (Auto) 66.2 % (45.5-73.1) Lymph % (Auto) 24.1 % (18.3-44.2) [place] % (Auto) 6.5 % (2.6-8.5) Eos % (Auto) 2.3 % (0-4.4) Baso % (Auto) 0.4 % (0.2-1.2) Lymph # (Auto) 2.73 K/mm3 (0.9-3.2) [place] # (Auto) 0.7 H K/mm3 (0.1-0.6) Eos # (Auto) 0.3 K/mm3 (0-0.3) Baso # (Auto) 0.1 K/mm3 (0.0-0.1) Abs Immat Gran (auto) 0.06 H K/mm3 (0.00-0.031) Absolute Neuts (auto) 7.5 H K/mm3 (1.3-6.7) Absolute Nucleated RBC 0.000 K/mm3 (0.0-0.012) Nucleated RBC % 0.0 % (0.0-0.2) PT 14.7 Seconds (11.1-14.7) INR 1.1 APTT 26.9 Seconds (22.3-36.8) Sodium 139 mmol/L (137-145) Potassium 3.9 mmol/L (3.4-5.0) Chloride 107 mmol/L (98-107) Carbon Dioxide 25 mmol/L (22-30) Anion Gap 7 mmol/L (4-12) BUN 10 mg/dL (7-17) Creatinine 0.70 mg/dL (0.7-1.0) Estim Creat Clear Calc 74 ml/min Estimated GFR > 60 (59 - ) Glucose 101 mg/dL (65-110) POC Capillary Glucose 114 H mg/dl (65-105) Calcium 8.9 mg/dL (8.4-10.2) Magnesium 2.2 mg/dL (1.6-2.3) Total Bilirubin 0.6 mg/dL (0.2-1.3) AST 44 H U/L (14-36) ALT 19 U/L (6-35) Alkaline Phosphatase 97 U/L (38-126) Total Protein 6.6 g/dL (6.3-8.2) Albumin 3.8 g/dL (3.5-5.1) Blood Type O Positive Antibody Screen Negative 02/10/25 09:37 WBC RBC Hgb Hct MCV MCH MCHC RDW Plt Count MPV Immature Gran % (Auto) Neut % (Auto) Lymph % (Auto) [place] % (Auto) Eos % (Auto) Baso % (Auto) Lymph # (Auto) [place] # (Auto) Eos # (Auto) Baso # (Auto) Abs Immat Gran (auto) Absolute Neuts (auto) Absolute Nucleated RBC Nucleated RBC % PT INR APTT Sodium Potassium Chloride Carbon Dioxide Anion Gap BUN Creatinine Estim Creat Clear Calc Estimated GFR Glucose POC Capillary Glucose 113 H mg/dl (65-105) Calcium Magnesium Total Bilirubin AST ALT Alkaline Phosphatase Total Protein Albumin Blood Type Antibody Screen Patient hx anesthesia problems: none Family hx anesthesia problems: none Results Review: All pre-operative results and documents have been reviewed as part of the pre- operative evaluation. [facility] Past Medical History Medical History Type 2 diabetes mellitus Metabolic syndrome Abnormal glucose Hypothyroidism Colon polyp HTN (hypertension) EILEEN (obstructive sleep apnea) Morbid obesity Family History Family History Other Cerebrovascular accident Diabetes mellitus Family history of arthritis Family history of blood dyscrasia Family history of cardiovascular disease Family history of elevated blood lipids Family history of genitourinary disease Family history of hearing loss Family history of migraine headaches Family history of obesity Hypertension Malignant neoplasm of prostate Social History Social History Smoking packs per day: 3 Smoking cigarettes per day: 60.0 Smoking status: Former smoker Tobacco type: cigarettes Alcohol intake: never Substance use: never Substance use type: does not use Do You Feel Safe in your Home?: Yes Lack of Transportation: No Lack of Food: Never True Current Housing: I Have Housing Concerned About Future Housing: No Difficulty Paying Gas/Electric Bills: No Difficulty Paying for Meds: No Currently Unemployed: No Education: High School Diploma/GED Difficulty w/ Childcare or Family Care: No Living arrangements: alone Spiritual care concerns: No Anes - Eval Final PreProcedure Day of Procedure 02/10/25 11:12 Patient weight: morbidly obese Heart: regular rate and rhythm Lungs: clear to auscultation Airway: Mallampati scale class III Neurological: alert and oriented Last oral intake: >/= 8 hours ASA classification: III Emergent: no Anesthetic plan: proceed Anesthesia type and monitoring: general ETT and standard monitoring Results Review: All pre-operative results and documents have been reviewed as part of the pre- operative evaluation. Informed Consent: The patient's anesthetic plan and its attendant risks and benefits were discussed with the patient/family/POA. Questions were solicited and answers provided to the satisfaction of the patient/family/POA.
[2025-02-10] MEDS: ceFAZolin 2 GM/D5W 50 ML 2 GM/50 ML BAG IVPB (11:33)
[2025-02-10] MEDS: BUPIVACAINE/EPINEPHRINE 0.5% 50 ML VIAL 30 ML INFILTRATE (11:54)
--- NOTE | 2025-02-10 12:22 | S_PTH ---
PATIENT: Kimberly Delgado LOC: [id number] U#:[id number] AGE/SX: 74/F ROOM: 347 RE02/09/[address]: Sanjay Wolf MD : [id number] BED: 01 DIS: 02/12/2025 SPEC #: [id number] RECD: 02/10/25 13:07 STATUS: ANSHU RECelio #: [id number] ROMEL: 02/10/25 12:[address]: Amador Leonardo DEPT: [facility] Surgical RECD BY: Chandni Tolentino ENTERED: 02/10/25 13:08 SP TYPE: Surgical OTHR DR: Gail Moreland, DO Diogo Elena MD Edmundo A. Rodriguez-Frias, MD Tissues: A - Gallbladder Procedures: Hematoxylin and Eosin Stain Gross and Microscopic Level 3
[2025-02-10] MEDS: LACTATED RINGERS 1,000 ML 30 ML IV CONT (12:36)
--- NOTE | 2025-02-10 12:36 | P.OP_ITS ---
Procedure Note - Detailed Date of Procedure 02/10/25 Pre-op Diagnosis Acute calculous cholecystitis Post-op Diagnosis Same Procedure Performed Laparoscopic cholecystectomy Surgeon Amador Leonardo, DO Anesthesia General and Local (0.5% bupivacaine) Indications This is a 74-year-old woman who presented to the emergency department with epigastric pain with nausea and vomiting. Imaging showed evidence of cholelithiasis with a distended gallbladder. She was admitted and initially placed in the IMU because she presented with AFib with RVR. She spontaneously converted back to sinus rhythm and has been in sinus rhythm since. Discussions were made with the patient about treatment options and decision was made to proceed with laparoscopic cholecystectomy, possible open. Findings Laparoscopic cholecystectomy was performed. There was a large gallstone within the neck of the gallbladder. The cystic duct appeared to taper down to normal size. The gallbladder had a few pericholecystic adhesions and was distended. A laparoscopic aspirating needle was used to aspirate the gallbladder to decompress it. The patient has some bleeding from a branch of the cystic artery going to the lateral side of the gallbladder. I was able to control this with a clip servomechanism assembler but also used FloSeal to industrial maintenance repairer helper with hemostasis. The gallbladder was removed and sent to the lab for pathology. No other significant abnormalities were noted. Description of Procedure Procedure as well as risks, benefits, and alternatives were discussed with patient. Written consent was obtained and placed in chart prior to procedure. The patient was brought back to surgical suite. Patient was placed in supine position on operating table. Time-out was done to confirm patient and procedure. Patient was then intubated by the anesthesia department. Abdomen was prepped and draped in sterile fashion using chlorhexidine prep. 0.5% bupivacaine with epinephrine was infiltrated at each site of incision. A 5 millimeter incision was made near the umbilicus, and a 5 millimeter Optiview trocar was advanced through the abdominal layers under direct visualization. Once inside the abdominal cavity, carbon dioxide was insufflated to create a pneumoperitoneum. The camera was inserted and the abdomen was inspected. No immediate abnormalities were identified. The patient was placed in reverse Trendelenburg position and rotated slightly to the left. An 11 millimeter incision was made in the subxiphoid region, and an 11 millimeter trocar was inserted under direct visualization. Two 5 millimeter incisions were made in the right upper quadrant, and two 5 millimeter trocars were inserted under direct visualization. The gallbladder was identified and grasped at the fundus and retracted superiorly. It was then grasped at the infundibulum retracted laterally. Careful dissection around the neck of the gallbladder was performed using blunt dissection with a [place] grasper and hook electrocautery. The cystic duct was identified, and a window was created behind it. The cystic artery was also identified and a window was created behind it. The critical view of safety was identified, visualizing the cystic duct running directly into the neck of the gallbladder, and the cystic artery running directly into the wall of the gallbladder. A 5 millimeter clip servomechanism assembler was then used to place 2 clips proximally and 1 clip distally on both the cystic duct and cystic artery. They were then both transected using endoscopic scissors. Once safely away from the melody hepatitis, the gallbladder was dissected free from the liver bed using hook electrocautery. Hemostasis was achieved along the way. The gallbladder was removed completely and then removed through the subxiphoid port. The liver bed was then inspected. Hemostasis appeared adequate, and our clips appeared secure. The area was gently irrigated with sterile saline. No other abnormalities were seen. The patient was flattened out in bed, and 1 final inspection was made around the abdominal cavity. The subxiphoid port was removed, and a Joseph Merissa cone was used to approximate the fascia with an 0-Vicryl simple interrupted suture. The remaining ports were then removed under direct visualization, the camera was removed, and the pneumoperitoneum was released. The skin of the incisions was approximated using 4-0 Monocryl subcuticular sutures. Exofin glue was applied on top. The patient was then awakened from anesthesia, extubated, and transferred to recovery. Estimated Blood Loss 50 Urine Output 1,100 Pathology Yes (Gallbladder) Complications No immediate complications Condition Stable Disposition Floor [facility] Billing Surgery - Charge Forward: Surgery Billing
[2025-02-10] MEDS: fentaNYL CITRATE INJ (*CRX) 100 MCG/2 ML VIAL 25 MCG IV PUSH ×8 (13:00→13:45)
[2025-02-10] MEDS: ONDANSETRON INJ 4 MG/2 ML VIAL IV PUSH (13:00)
[2025-02-10 13:49] LABS: Glucose Point of Care 170 mg/dl (65-105)
[2025-02-10] MEDS: HYDROmorphone HCL INJ (*CRX) 2 MG/ML VIAL 0.5 MG IV PUSH ×2 (14:00→14:05)
[2025-02-10 16:51] LABS: Glucose Point of Care 125 mg/dl (65-105)
--- NOTE | 2025-02-10 17:35 | PM.IMPN ---
Progress Note: A&P Assessment and Plan (1) New onset a-fib: Code(s): I48.91 - Unspecified atrial fibrillation Status: Acute Assessment and Plan: -Initial EKG a-fib RVR with spontaneous conversion -Potassium 3.2, magnesium 1.8--replaced both, recheck in AM -Heparin drip started due to elevated CHADS-VASC score -CXR with cardiomegaly, BNP mildly high -CT findings of esophagitis, prior GI bleed with aspirin -Rectal exam with occult stool negative (2) Cholelithiases: Qualifiers: Biliary obstruction: without biliary obstruction Cholecystitis presence: without cholecystitis Cholelithiasis location: gallbladder Qualified Code(s): K80.20 - Calculus of gallbladder without cholecystitis without obstruction Code(s): K80.20 - Calculus of gallbladder without cholecystitis without obstruction Status: Acute Assessment and Plan: -Patient describes epigastric pain with unrelenting nausea/vomiting for 24 hours. -Gallstone on CT scan -Will order Ultrasound for tomorrow -PRN pain and nausea medications ordered -NPO after 0300 (3) Hepatic lesion: Code(s): K76.9 - Liver disease, unspecified Status: Acute Assessment and Plan: -Two lesions noted in the liver, possible arteriovenous shunting vs HCC -Will consult IR to see about biopsy -Will stop heparin in order to potentially get biopsy (4) Acute hypokalemia: Code(s): E87.6 - Hypokalemia Status: Acute Assessment and Plan: -Replaced as above, continue to monitor -Likely made worse by HCTZ (5) Type 2 diabetes mellitus: Code(s): E11.9 - Type 2 diabetes mellitus without complications Status: Acute Assessment and Plan: -A1c 5.9, patient takes Trulicity and metformin -Hold home meds, SSI moderate dose -NPO at 0300 for possible biopsy of liver (6) Esophagitis: Code(s): K20.90 - Esophagitis, unspecified without bleeding Status: Acute Assessment and Plan: -Pantoprazole ordered -Prior GI bleed, not current -Imaging finding may be due to profuse vomiting over past 24 hours (7) HTN (hypertension): Code(s): I10 - Essential (primary) hypertension Status: Acute Assessment and Plan: -History of HTN, blood pressure checked -Leg swelling noted, may need to change amlodipine to something else (8) EILEEN (obstructive sleep apnea): Code(s): G47.33 - Obstructive sleep apnea (adult) (pediatric) Status: Acute Assessment and Plan: -Dyspnea noted, oxygen applied by nursing -AutoPap ordered but patient may decline use -She should be encouraged to have someone bring her home CPAP unit if still admitted overnight tomorrow. (9) Hypothyroidism: Code(s): E03.9 - Hypothyroidism, unspecified Status: Acute Assessment and Plan: -Continue home medication -TSH mildly low, Reflex pending (10) Insomnia: Code(s): G47.00 - Insomnia, unspecified Status: Chronic Assessment and Plan: -Hold zolpidem while in hospital -Ordered 0.5 mg alprazolam and 100 mg trazodone QHS for sleep initiation and sleep duration Plan 74 y/o female presented with c/o abdominal pain and persistent n/v, Ct scan of abdomen was concerning for hepatocellular carcinoma abd radiologist recommended MRI, patient stats feels litter better compared when she arrived, will follow up on MRI and further recommendation to follow. MRI of abdomen showed persistent gallstone at the neck of the gallbladder with trace amount of pericholecystic fluid between the gallbladder and liver at the gallbladder fossa and could not exclude early acute cholecystitis although the Perdue sign was normal and the prior ultrasound. concerning cholecystitis today patient was seen by general surgery serivice and patient had laparoscopic cholecystectomy, patient has returned from the surgery still under sedation, clinically stable, will start on clear liquids and monitor. -Cardiology consulted -Echo cardiogram ordered -RUQ US ordered for gallstone, epigastric pain, nausea/vomiting--patient may benefit from General Surgery referral or consult Subjective Date/time seen: 02/10/25 17:35 Interval history: 74 y/o female presented with c/o abdominal pain and persistent n/v, Ct scan of abdomen was concerning for hepatocellular carcinoma abd radiologist recommended MRI, patient stats feels litter better compared when she arrived, will follow up on MRI and further recommendation to follow. MRI of abdomen showed persistent gallstone at the neck of the gallbladder with trace amount of pericholecystic fluid between the gallbladder and liver at the gallbladder fossa and could not exclude early acute cholecystitis although the Perdue sign was normal and the prior ultrasound. concerning cholecystitis today patient was seen by general surgery serivice and patient had laparoscopic cholecystectomy, patient has returned from the surgery still under sedation, clinically stable, will start on clear liquids and monitor. Review of Systems Review of Systems: All systems reviewed & are unremarkable except as noted in HPI and below Exam Narrative: Morbidly obese Patient is comfortable, NAD HEENT: eyes are clear and none icteric LUNGS:CTA HEART: RR S1S2 ABD: Distended Lower extremities: no edema SKIN: nonjaundiced Neuro: grossly intact. Objective Data Vital Signs Vital Signs: Vital Signs - 24 hr 02/09/25 18:00 02/09/25 19:52 02/09/25 20:00 Temperature 37.1 C Pulse Rate 58 L 51 L 57 L Respiratory Rate 20 20 Blood Pressure 138/47 L Pulse Oximetry 100 97 Oxygen Delivery Nasal Cannula Oxygen Flow Rate 2 Fraction of Inspired Oxygen 02/09/25 20:00 02/09/25 20:05 02/09/25 21:24 Temperature Pulse Rate 57 L 54 L 49 L Respiratory Rate 20 Blood Pressure Pulse Oximetry 97 Oxygen Delivery Nasal Cannula Oxygen Flow Rate 2 Fraction of Inspired Oxygen 02/09/25 23:50 02/09/25 23:50 02/10/25 00:00 Temperature 36.6 C Pulse Rate 54 L 54 L 50 L Respiratory Rate 20 20 Blood Pressure 112/51 L Pulse Oximetry 97 97 Oxygen Delivery Nasal Cannula Oxygen Flow Rate 2 Fraction of Inspired Oxygen 02/10/25 01:58 02/10/25 04:00 02/10/25 04:00 Temperature 36.6 C Pulse Rate 52 L 58 L 56 L Respiratory Rate 20 20 Blood Pressure 131/58 L Pulse Oximetry 99 99 Oxygen Delivery Nasal Cannula Oxygen Flow Rate 2 Fraction of Inspired Oxygen 02/10/25 04:00 02/10/25 06:00 02/10/25 07:50 Temperature Pulse Rate 56 L 54 L Respiratory Rate Blood Pressure Pulse Oximetry 97 Oxygen Delivery Nasal Cannula Oxygen Flow Rate 2 Fraction of Inspired Oxygen 02/10/25 08:00 02/10/25 08:00 02/10/25 12:36 Temperature 36.7 C 36.6 C Pulse Rate 53 L 75 71 Respiratory Rate 18 20 Blood Pressure 127/71 141/61 H Pulse Oximetry 99 93 Oxygen Delivery Simple Face Mask Oxygen Flow Rate 10 Fraction of Inspired Oxygen 02/10/25 12:45 02/10/25 13:00 02/10/25 13:15 Temperature Pulse Rate 57 L 53 L 52 L Respiratory Rate 19 17 20 Blood Pressure 130/56 L 137/53 L 138/55 L Pulse Oximetry 95 94 96 Oxygen Delivery Simple Face Mask Nasal Cannula Nasal Cannula Oxygen Flow Rate 10 2 2 Fraction of Inspired Oxygen 02/10/25 13:30 02/10/25 13:45 02/10/25 14:00 Temperature Pulse Rate 52 L 52 L 55 L Respiratory Rate 14 17 12 Blood Pressure 139/53 L 131/52 L 131/57 L Pulse Oximetry 92 94 94 Oxygen Delivery Nasal Cannula Nasal Cannula Nasal Cannula Oxygen Flow Rate 2 2 2 Fraction of Inspired Oxygen 02/10/25 14:15 02/10/25 14:26 02/10/25 15:13 Temperature 36.9 C Pulse Rate 53 L 59 L 56 L Respiratory Rate 12 17 20 Blood Pressure 109/62 112/56 L 119/57 L Pulse Oximetry 98 98 98 Oxygen Delivery Nasal Cannula Nasal Cannula Oxygen Flow Rate 2 2 Fraction of Inspired Oxygen 02/10/25 16:00 02/10/25 16:52 Temperature 36.6 C Pulse Rate 58 L 58 L Respiratory Rate 21 H 21 H Blood Pressure 112/55 L Pulse Oximetry 94 94 Oxygen Delivery Nasal Cannula Oxygen Flow Rate 2 Fraction of Inspired Oxygen 28 Intake/Output Intake/Output: Intake & Output 02/07/25 02/08/25 02/09/25 02/10/25 23:59 23:59 23:59 23:59 Intake Total 1720 200 Output Total 300 1100 1100 Balance -300 620 -900 Meds/Results Medications: Active Medications Generic Name Dose Route Start Last Admin Trade Name Freq PRN Reason Stop Dose Admin Acetaminophen 650 mg 02/08/25 22:39 02/09/25 10:39 Acetaminophen 325 Mg Tablet PO 650 mg Q4H PRN Administration pain rated 1-6 Hydrocodone Bitart/Acetaminophen 1 tab 02/10/25 14:30 Hydrocodone/Acetaminophen (*Crx) 5-325 Mg Tablet PO Q4H PRN Pain Rated 4-6 Hydrocodone Bitart/Acetaminophen 1 tab 02/10/25 14:30 Hydrocodone/Acetaminophen (*Crx) 10-325 Mg Tablet PO Q4H PRN Pain Rated 7-10 Albuterol 2 puff 02/08/25 22:43 Albuterol Sulfate (*Sp) Aerosol 1 Puff INHALATION Q4HRT PRN Shortness Of Breath Alprazolam 0.5 mg 02/08/25 22:40 Alprazolam (*Crx) 0.5 Mg Tablet PO HS PRN Sleep initiation Amlodipine Besylate 10 mg 02/09/25 09:00 02/09/25 10:38 Amlodipine Besylate 10 Mg Tablet PO 10 mg DAILY [facility]ELIX Administration Atorvastatin Calcium 20 mg 02/09/25 09:00 02/09/25 10:38 Atorvastatin 20 Mg Tablet PO 20 mg DAILY FELIX Administration Clobetasol Propionate 1 applic 02/08/25 22:44 Clobetasol Propionate 0.05% Cream 15 Gm TOPICAL DAILY PRN Itching Dextrose 12.5 gm 02/08/25 22:42 Dextrose 50% 25 Gm/50 Ml Syringe IV PUSH PRN PRN Hypoglycemia Protocol Enoxaparin Sodium 40 mg 02/11/25 09:00 Enoxaparin 40 Mg/0.4 Ml Syringe SUB-Q DAILY FELIX Ergocalciferol 1,250 mcg 02/12/25 09:00 Ergocalciferol (Vitamin D2) 1,250 Mcg (50,000 Units) Capsule PO WEEKLY FELIX Famotidine 20 mg 02/09/25 09:00 02/09/25 10:38 Famotidine 20 Mg Tablet PO 20 mg DAILY FELIX Administration Fluticasone Propionate 2 spray 02/09/25 09:00 02/09/25 10:40 Fluticasone Propionate 0.05% Na Spr 16 Gm Btl (*Bkc) NASAL 2 spray DAILY FELIX Administration Glucagon 1 mg 02/08/25 22:42 Glucagon For Inj 1 Mg Vial IM PRN PRN Hypoglycemia Protocol Glucose 15 gm 02/08/25 22:42 Glucose Oral Gel 15 Gm Of Glucse In 37.5 Gm Tube PO PRN PRN Hypoglycemia Protocol Dextrose 1,000 mls @ 100 mls/hr 02/08/25 22:42 Dextrose 5% 1,000 Ml IVPB PRN PRN Hypoglycemia Protocol Lactated Ringer's 1,000 mls @ 100 mls/hr 02/10/25 14:30 Lr - Lactated Ringers Iv IV CONT 02/11/25 00:29 .Q10H ONE Insulin Aspart 3 - 6 units 02/09/25 08:00 02/10/25 17:13 Insulin Aspart (*Bkc) 100 Units/Ml SUB-Q Not Given TIDWM FELIX Protocol Levothyroxine Sodium 112 mcg 02/09/25 06:30 02/10/25 06:07 Levothyroxine Sodium 112 Mcg Tablet PO 112 mcg DAILY@0630 [facility] Administration Metoclopramide HCl 10 mg 02/08/25 22:39 02/09/25 16:31 Metoclopramide Hcl Inj 10 Mg/2 Ml Vial IV PUSH 10 mg Q6HR PRN Administration nausea/vomiting Metoprolol Succinate 25 mg 02/10/25 09:00 Metoprolol Succinate Ext Rel 25 Mg Tabcr PO DAILY [facility] Miscellaneous Information 0 each 02/08/25 00:01 Clobetasol Add Site Of Use XX 03/10/25 00:00 CLARIFY [facility] Morphine Sulfate 2 mg 02/10/25 14:30 Morphine Sulfate (*Crx) 2 Mg/Ml Inj IV PUSH Q2H PRN Breakthrough Pain Rated 4-6 or NPO Morphine Sulfate 4 mg 02/10/25 14:30 Morphine Sulfate (*Crx) 4 Mg/Ml Inj IV PUSH Q2H PRN Breakthrough Pain Rated 7-10 or NPO Naloxone HCl 0.1 mg 02/10/25 14:30 Naloxone Hcl 0.4 Mg/Ml Vial IV PUSH Q2M PRN Opiate Reversal Ondansetron HCl 4 mg 02/08/25 18:27 Ondansetron Inj 4 Mg/2 Ml Vial IV PUSH Q4H PRN Nausea Pantoprazole Sodium 40 mg 02/09/25 09:00 02/09/25 10:40 Pantoprazole Sodium Iv 40 Mg Vial IV PUSH 40 mg QAM [facility] Administration Polyethylene Glycol 17 gm 02/09/25 15:53 02/09/25 16:31 Polyethylene Glycol 3350 17 Gm Powd.Pack PO 17 gm QAM [facility] Administration Trazodone HCl 100 mg 02/08/25 22:40 02/09/25 20:19 Trazodone Hcl 50 Mg Tablet PO 100 mg HS [facility] Administration Umeclidinium/Vilanterol 1 puff 02/09/25 08:00 02/10/25 07:50 Umeclidinium/Vilanterol 62.5-25 Mcg Ellipta INHALATION 1 puff DAILYRT [facility]ELIX Administration Radiology Results: ITS Impressions Chest X-Ray 02/08/25 14:29 Impression: 1: Bibasilar airspace disease may represent atelectasis, edema or pneumonia. Chest/Abdomen/Pelvis CTA 02/08/25 15:54 IMPRESSION: CHEST: 1. No pulmonary embolism. 2. No acute cardiopulmonary pathology. ABDOMEN/PELVIS: 1. No enhancing lesions in the liver. Differential include hepatocellular carcinoma versus arteriovenous shunting. Follow-up advised. 2. Filling defect in the portal vein which may be mixing of blood with contrast. Thrombus is less likely although cannot be excluded. Clinical correlation and if warranted ultrasound is advised. 3. Cholelithiasis. 4. Slight thickening of the wall of the sigmoid colon which may indicate colitis. Follow-up advised. 5. Thickened lower esophagus which may indicate reflux esophagitis. Abdomen Ultrasound 02/09/25 09:05 IMPRESSION: 1. Cholelithiasis with normal appearing gallbladder and no sonographic Perdue sign to suggest acute cholecystitis. 2. Diffuse hepatic steatosis with focal sparing along the gallbladder fossa. No correlate identified for the small regions of subcapsular hyperdensity/enhancement on prior CT most likely related to focal fatty sparing or transient hepatic attenuation difference. Consider pre and postcontrast MRI for further evaluation. Abdomen MRI 02/09/25 13:39 IMPRESSION: 1. . Mild diffuse hepatic steatosis with 5 mm macroscopic fat containing likely lipoma in the right hepatic lobe. No other hepatic lesions identified. No correlate identified for the appearance small ill-defined regions of peripheral enhancement at the liver on the prior arterial phase CT which would be most consistent with transient hepatic attenuation difference. 2. Persistent gallstone at the neck of the gallbladder with trace amount of pericholecystic fluid between the gallbladder and liver at the gallbladder fossa and could not exclude early acute cholecystitis although the Perdue sign was normal and the prior ultrasound. Could consider HIDA scan for more definitive determination. 3. Focal adenomyomatosis at the fundus of the gallbladder. Labs Labs: Laboratory Results - last 24 hr 02/09/25 02/10/25 02/10/25 20:35 04:05 04:31 WBC 11.4 H RBC 4.02 L Hgb 12.7 Hct 40.1 MCV 99.8 MCH 31.6 MCHC 31.7 L RDW 12.9 Plt Count 293 MPV 11.2 H Immature Gran % (Auto) 0.5 Neut % (Auto) 66.2 Lymph % (Auto) 24.1 Schleicher % (Auto) 6.5 Eos % (Auto) 2.3 Baso % (Auto) 0.4 Lymph # (Auto) 2.73 Schleicher # (Auto) 0.7 H Eos # (Auto) 0.3 Baso # (Auto) 0.1 Abs Immat Gran (auto) 0.06 H Absolute Neuts (auto) 7.5 H Absolute Nucleated RBC 0.000 Nucleated RBC % 0.0 PT 14.7 INR 1.1 APTT 26.9 Sodium 139 Potassium 3.9 Chloride 107 Carbon Dioxide 25 Anion Gap 7 BUN 10 Creatinine 0.70 Estim Creat Clear Calc 74 Estimated GFR > 60 Glucose 101 POC Capillary Glucose 96 Calcium 8.9 Magnesium 2.2 Total Bilirubin 0.6 AST 44 H ALT 19 Alkaline Phosphatase 97 Total Protein 6.6 Albumin 3.8 Blood Type O Positive Antibody Screen Negative 02/10/25 02/10/25 02/10/25 07:32 09:37 13:47 WBC RBC Hgb Hct MCV MCH MCHC RDW Plt Count MPV Immature Gran % (Auto) Neut % (Auto) Lymph % (Auto) Schleicher % (Auto) Eos % (Auto) Baso % (Auto) Lymph # (Auto) Schleicher # (Auto) Eos # (Auto) Baso # (Auto) Abs Immat Gran (auto) Absolute Neuts (auto) Absolute Nucleated RBC Nucleated RBC % PT INR APTT Sodium Potassium Chloride Carbon Dioxide Anion Gap BUN Creatinine Estim Creat Clear Calc Estimated GFR Glucose POC Capillary Glucose 114 H 113 H 170 H Calcium Magnesium Total Bilirubin AST ALT Alkaline Phosphatase Total Protein Albumin Blood Type Antibody Screen 02/10/25 16:17 WBC RBC Hgb Hct MCV MCH MCHC RDW Plt Count MPV Immature Gran % (Auto) Neut % (Auto) Lymph % (Auto) Schleicher % (Auto) Eos % (Auto) Baso % (Auto) Lymph # (Auto) Schleicher # (Auto) Eos # (Auto) Baso # (Auto) Abs Immat Gran (auto) Absolute Neuts (auto) Absolute Nucleated RBC Nucleated RBC % PT INR APTT Sodium Potassium Chloride Carbon Dioxide Anion Gap BUN Creatinine Estim Creat Clear Calc Estimated GFR Glucose POC Capillary Glucose 125 H Calcium Magnesium Total Bilirubin AST ALT Alkaline Phosphatase Total Protein Albumin Blood Type Antibody Screen Quality VTE Prophylaxis VTE prophylaxis: mechanical ordered and pharmacologic ordered (heparin (on hold pending possible biopsy and cardiology consult))
[2025-02-10] MEDS: ATORVASTATIN 20 MG TABLET PO (17:46)
[2025-02-10] MEDS: FAMOTIDINE 20 MG TABLET PO (17:46)
[2025-02-10] MEDS: FLUTICASONE PROPIONATE 0.05% NA SPR 16 GM BTL (*BKC) 2 SPRAY NASAL (17:47)
[2025-02-10] MEDS: PANTOPRAZOLE SODIUM IV 40 MG VIAL IV PUSH (17:48)
[2025-02-10] MEDS: LACTATED RINGERS 1,000 ML 100 ML IV CONT (17:48)
[2025-02-10 21:14] LABS: Glucose Point of Care 257 mg/dl (65-105)
[2025-02-10] MEDS: HYDROcodone/acetaminophen (*CRX) 5-325 MG TABLET 1 TAB PO (21:20)
[2025-02-10] MEDS: ALPRAZolam (*CRX) 0.5 MG TABLET PO (21:20)
[2025-02-10] MEDS: traZODone HCL 50 MG TABLET 100 MG PO (23:37)
[2025-02-11] VITALS (14 sets, daily range): BP systolic 94–150; BP diastolic 26–67; PULSE 55–85; RESP 18–22; TEMP 36.5–36.7; O2SAT 92–100
[2025-02-11] MEDS: HYDROcodone/acetaminophen (*CRX) 10-325 MG TABLET 1 TAB PO ×3 (04:30→17:53)
[2025-02-11 04:38] LABS: Basophils Percent Auto 0.3 % (0.2-1.2); Hematocrit 39.1 % (37.0-47.0); Hemoglobin 12.5 g/dL (12.0-15.0); Immature Granulocyte Absolute 0.09 K/mm3 (0.00-0.031); Immature Granulocyte Percent A 0.7 % (0-0.5); Lymphocytes Absolute Auto 1.29 K/mm3 (0.9-3.2); Lymphocytes Percent Auto 9.4 % (18.3-44.2); Mean Corpuscular Hemoglobin 31.5 pg (26-34); Mean Corpuscular Volume 98.5 fl (80-100); Monocytes Absolute Auto 0.6 K/mm3 (0.1-0.6); Monocytes Percent Auto 4.2 % (2.6-8.5); Neutrophils Absolute Auto 11.7 K/mm3 (1.3-6.7); Neutrophils Percent Auto 85.4 % (45.5-73.1); Platelet Count Result 310 k/mm3 (150-375); Red Blood Count 3.97 M/mm3 (4.2-5.4); Red Cell Distribution Width 12.6 % (11.5-14.5); White Blood Count 13.7 K/mm3 (4.5-10.0)
[2025-02-11 05:18] LABS: Alanine Aminotransferase 28 U/L (6-35); Alkaline Phosphatase 93 U/L (38-126); Anion Gap 9 mmol/L (4-12); Aspartate Amino Transferase 35 U/L (14-36); Bilirubin,Total 0.4 mg/dL (0.2-1.3); Blood Urea Nitrogen 6 mg/dL (7-17); Carbon Dioxide 25 mmol/L (22-30); Chloride 105 mmol/L (98-107); Estimated CRCL calculation 79 ml/min; Estimated Glomerular Filt Rate > 60; Glucose 110 mg/dL (65-110); Magnesium 2.2 mg/dL (1.6-2.3); Sodium 139 mmol/L (137-145); Total Protein 6.9 g/dL (6.3-8.2)
[2025-02-11] MEDS: LEVOTHYROXINE SODIUM 112 MCG TABLET PO (05:52)
--- NOTE | 2025-02-11 06:50 | PM.PNCARD ---
Progress Note: A&P Assessment and Plan (1) PAF (paroxysmal atrial fibrillation): Code(s): I48.0 - Paroxysmal atrial fibrillation Status: Acute Assessment and Plan: Back in sinus rhythm. [id number]. Was on heparin drip but on hold in anticipation of liver biopsy. On Metoprolol. Due to bradycardia, on low dose Metoprolol Succinate 25 mg daily. S/P lab cholecystectomy 02/10/25. If OK with surgery, start Eliquis 5 mg BID. Will sign off, please call with any questions. Have her f/u with me in 1-2 weeks upon discharge. (2) HTN (hypertension): Code(s): I10 - Essential (primary) hypertension Status: Acute Assessment and Plan: Stable. (3) Dyslipidemia: Code(s): E78.5 - Hyperlipidemia, unspecified Status: Acute Assessment and Plan: On Atorvastatin. Subjective Date/time seen: 02/11/25 06:50 Interval history: Denies chest pain or sob. She is very drowsy as she did not sleep well last night. Exam Const: General: cooperative, healthy appearing and comfortable Orientation/consciousness: oriented to person, oriented to place and oriented to time Resp: Auscultation: clear to auscultation bilaterally, no crackles, no rales, no rhonchi and no wheezes Cardio: Rate: regular rate Rhythm: regular rhythm Heart sounds: no murmurs Peripheral pulses: dorsalis pedis present Neuro: General: oriented to person, oriented to place and oriented to time Extrem: Right lower extremity: no edema Left lower extremity: no edema Objective Data Vital Signs Vital Signs: Vital Signs - 24 hr 02/10/25 07:50 02/10/25 08:00 02/10/25 08:00 Temperature 98.1 F Pulse Rate 53 L 75 Respiratory Rate 18 Blood Pressure 127/71 Pulse Oximetry 97 99 Oxygen Delivery Nasal Cannula Oxygen Flow Rate 2 Fraction of Inspired Oxygen 02/10/25 12:36 02/10/25 12:45 02/10/25 13:00 Temperature 98 F Pulse Rate 71 57 L 53 L Respiratory Rate 20 19 17 Blood Pressure 141/61 H 130/56 L 137/53 L Pulse Oximetry 93 95 94 Oxygen Delivery Simple Face Mask Simple Face Mask Nasal Cannula Oxygen Flow Rate 10 10 2 Fraction of Inspired Oxygen 02/10/25 13:15 02/10/25 13:30 02/10/25 13:45 Temperature Pulse Rate 52 L 52 L 52 L Respiratory Rate 20 14 17 Blood Pressure 138/55 L 139/53 L 131/52 L Pulse Oximetry 96 92 94 Oxygen Delivery Nasal Cannula Nasal Cannula Nasal Cannula Oxygen Flow Rate 2 2 2 Fraction of Inspired Oxygen 02/10/25 14:00 02/10/25 14:15 02/10/25 14:26 Temperature Pulse Rate 55 L 53 L 59 L Respiratory Rate 12 12 17 Blood Pressure 131/57 L 109/62 112/56 L Pulse Oximetry 94 98 98 Oxygen Delivery Nasal Cannula Nasal Cannula Nasal Cannula Oxygen Flow Rate 2 2 2 Fraction of Inspired Oxygen 02/10/25 15:13 02/10/25 16:00 02/10/25 16:52 Temperature 98.4 F 97.9 F Pulse Rate 56 L 58 L 58 L Respiratory Rate 20 21 H 21 H Blood Pressure 119/57 L 112/55 L Pulse Oximetry 98 94 94 Oxygen Delivery Nasal Cannula Oxygen Flow Rate 2 Fraction of Inspired Oxygen 28 02/10/25 19:54 02/10/25 20:00 02/10/25 21:04 Temperature 97.9 F Pulse Rate 64 61 64 Respiratory Rate 21 H 21 H Blood Pressure 140/58 L Pulse Oximetry 95 95 Oxygen Delivery Nasal Cannula Oxygen Flow Rate 2 Fraction of Inspired Oxygen 02/10/25 21:50 02/10/25 21:50 02/10/25 22:00 Temperature Pulse Rate 59 L 59 L 59 L Respiratory Rate Blood Pressure Pulse Oximetry 95 95 Oxygen Delivery Nasal Cannula Nasal Cannula Oxygen Flow Rate 2 Fraction of Inspired Oxygen 02/10/25 23:08 02/11/25 00:00 02/11/25 00:00 Temperature 97.8 F Pulse Rate 64 64 56 L Respiratory Rate 21 H 21 H Blood Pressure 150/57 H Pulse Oximetry 95 95 Oxygen Delivery Nasal Cannula Oxygen Flow Rate 2 Fraction of Inspired Oxygen 02/11/25 02:00 02/11/25 04:00 02/11/25 04:00 Temperature 97.8 F Pulse Rate 55 L 58 L 58 L Respiratory Rate 21 H 21 H Blood Pressure 122/52 L Pulse Oximetry 98 98 Oxygen Delivery Nasal Cannula Oxygen Flow Rate 2 Fraction of Inspired Oxygen 02/11/25 04:00 02/11/25 04:48 02/11/25 06:00 Temperature Pulse Rate 59 L 59 L Respiratory Rate Blood Pressure Pulse Oximetry 96 Oxygen Delivery Nasal Cannula Oxygen Flow Rate Fraction of Inspired Oxygen Intake/Output Intake/Output: Intake & Output 02/08/25 02/09/25 02/10/25 02/11/25 23:59 23:59 23:59 23:59 Intake Total 1720 1610 480 Output Total 300 1100 1100 1000 Balance -300 620 510 -520 Meds/Results Medications: Active Medications Generic Name Dose Route Start Last Admin Trade Name Freq PRN Reason Stop Dose Admin Acetaminophen 650 mg 02/08/25 22:39 02/09/25 10:39 Acetaminophen 325 Mg Tablet PO 650 mg Q4H PRN Administration pain rated 1-6 Hydrocodone Bitart/Acetaminophen 1 tab 02/10/25 14:30 02/10/25 21:20 Hydrocodone/Acetaminophen (*Crx) 5-325 Mg Tablet PO 1 tab Q4H PRN Administration Pain Rated 4-6 Hydrocodone Bitart/Acetaminophen 1 tab 02/10/25 14:30 02/11/25 04:30 Hydrocodone/Acetaminophen (*Crx) 10-325 Mg Tablet PO 1 tab Q4H PRN Administration Pain Rated 7-10 Albuterol 2 puff 02/08/25 22:43 Albuterol Sulfate (*Sp) Aerosol 1 Puff INHALATION Q4HRT PRN Shortness Of Breath Alprazolam 0.5 mg 02/08/25 22:40 02/10/25 21:20 Alprazolam (*Crx) 0.5 Mg Tablet PO 0.5 mg HS PRN Administration Sleep initiation Amlodipine Besylate 10 mg 02/09/25 09:00 02/10/25 17:47 Amlodipine Besylate 10 Mg Tablet PO Not Given DAILY [facility] Atorvastatin Calcium 20 mg 02/09/25 09:00 02/10/25 17:46 Atorvastatin 20 Mg Tablet PO 20 mg DAILY [facility] Administration Clobetasol Propionate 1 applic 02/08/25 22:44 Clobetasol Propionate 0.05% Cream 15 Gm TOPICAL DAILY PRN Itching Dextrose 12.5 gm 02/08/25 22:42 Dextrose 50% 25 Gm/50 Ml Syringe IV PUSH PRN PRN Hypoglycemia Protocol Enoxaparin Sodium 40 mg 02/11/25 09:00 Enoxaparin 40 Mg/0.4 Ml Syringe SUB-Q DAILY [facility] Ergocalciferol 1,250 mcg 02/12/25 09:00 Ergocalciferol (Vitamin D2) 1,250 Mcg (50,000 Units) Capsule PO WEEKLY [facility] Famotidine 20 mg 02/09/25 09:00 02/10/25 17:46 Famotidine 20 Mg Tablet PO 20 mg DAILY [facility] Administration Fluticasone Propionate 2 spray 02/09/25 09:00 02/10/25 17:47 Fluticasone Propionate 0.05% Na Spr 16 Gm Btl (*Bkc) NASAL 2 spray DAILY [facility] Administration Glucagon 1 mg 02/08/25 22:42 Glucagon For Inj 1 Mg Vial IM PRN PRN Hypoglycemia Protocol Glucose 15 gm 02/08/25 22:42 Glucose Oral Gel 15 Gm Of Glucse In 37.5 Gm Tube PO PRN PRN Hypoglycemia Protocol Dextrose 1,000 mls @ 100 mls/hr 02/08/25 22:42 Dextrose 5% 1,000 Ml IVPB PRN PRN Hypoglycemia Protocol Insulin Aspart 3 - 6 units 02/09/25 08:00 02/10/25 17:49 Insulin Aspart (*Bkc) 100 Units/Ml SUB-Q Not Given TIDWM [facility] Protocol Levothyroxine Sodium 112 mcg 02/09/25 06:30 02/11/25 05:52 Levothyroxine Sodium 112 Mcg Tablet PO 112 mcg DAILY@0630 [facility] Administration Metoclopramide HCl 10 mg 02/08/25 22:39 02/09/25 16:31 Metoclopramide Hcl Inj 10 Mg/2 Ml Vial IV PUSH 10 mg Q6HR PRN Administration nausea/vomiting Metoprolol Succinate 25 mg 02/10/25 09:00 02/10/25 17:48 Metoprolol Succinate Ext Rel 25 Mg Tabcr PO Not Given DAILY [facility] Miscellaneous Information 0 each 02/08/25 00:01 Clobetasol Add Site Of Use XX 03/10/25 00:00 CLARIFY [facility] Morphine Sulfate 2 mg 02/10/25 14:30 Morphine Sulfate (*Crx) 2 Mg/Ml Inj IV PUSH Q2H PRN Breakthrough Pain Rated 4-6 or NPO Morphine Sulfate 4 mg 02/10/25 14:30 Morphine Sulfate (*Crx) 4 Mg/Ml Inj IV PUSH Q2H PRN Breakthrough Pain Rated 7-10 or NPO Naloxone HCl 0.1 mg 02/10/25 14:30 Naloxone Hcl 0.4 Mg/Ml Vial IV PUSH Q2M PRN Opiate Reversal Ondansetron HCl 4 mg 02/08/25 18:27 Ondansetron Inj 4 Mg/2 Ml Vial IV PUSH Q4H PRN Nausea Pantoprazole Sodium 40 mg 02/09/25 09:00 02/10/25 17:48 Pantoprazole Sodium Iv 40 Mg Vial IV PUSH 40 mg QAM [facility] Administration Polyethylene Glycol 17 gm 02/09/25 15:53 02/10/25 17:48 Polyethylene Glycol 3350 17 Gm Powd.Pack PO Not Given QAM [facility] Trazodone HCl 100 mg 02/08/25 22:40 02/10/25 23:37 Trazodone Hcl 50 Mg Tablet PO 100 mg HS [facility] Administration Umeclidinium/Vilanterol 1 puff 02/09/25 08:00 02/10/25 07:50 Umeclidinium/Vilanterol 62.5-25 Mcg Ellipta INHALATION 1 puff DAILYRT [facility] Administration Radiology Results: ITS Impressions Chest X-Ray 02/08/25 14:29 Impression: 1: Bibasilar airspace disease may represent atelectasis, edema or pneumonia. Chest/Abdomen/Pelvis CTA 02/08/25 15:54 IMPRESSION: CHEST: 1. No pulmonary embolism. 2. No acute cardiopulmonary pathology. ABDOMEN/PELVIS: 1. No enhancing lesions in the liver. Differential include hepatocellular carcinoma versus arteriovenous shunting. Follow-up advised. 2. Filling defect in the portal vein which may be mixing of blood with contrast. Thrombus is less likely although cannot be excluded. Clinical correlation and if warranted ultrasound is advised. 3. Cholelithiasis. 4. Slight thickening of the wall of the sigmoid colon which may indicate colitis. Follow-up advised. 5. Thickened lower esophagus which may indicate reflux esophagitis. Abdomen Ultrasound 02/09/25 09:05 IMPRESSION: 1. Cholelithiasis with normal appearing gallbladder and no sonographic Perdue sign to suggest acute cholecystitis. 2. Diffuse hepatic steatosis with focal sparing along the gallbladder fossa. No correlate identified for the small regions of subcapsular hyperdensity/enhancement on prior CT most likely related to focal fatty sparing or transient hepatic attenuation difference. Consider pre and postcontrast MRI for further evaluation. Abdomen MRI 02/09/25 13:39 IMPRESSION: 1. . Mild diffuse hepatic steatosis with 5 mm macroscopic fat containing likely lipoma in the right hepatic lobe. No other hepatic lesions identified. No correlate identified for the appearance small ill-defined regions of peripheral enhancement at the liver on the prior arterial phase CT which would be most consistent with transient hepatic attenuation difference. 2. Persistent gallstone at the neck of the gallbladder with trace amount of pericholecystic fluid between the gallbladder and liver at the gallbladder fossa and could not exclude early acute cholecystitis although the Perdue sign was normal and the prior ultrasound. Could consider HIDA scan for more definitive determination. 3. Focal adenomyomatosis at the fundus of the gallbladder. Labs Labs: Laboratory Results - last 24 hr 02/10/25 02/10/25 02/10/25 04:05 07:32 09:37 WBC RBC Hgb Hct MCV MCH MCHC RDW Plt Count MPV Immature Gran % (Auto) Neut % (Auto) Lymph % (Auto) [place] % (Auto) Eos % (Auto) Baso % (Auto) Lymph # (Auto) [place] # (Auto) Eos # (Auto) Baso # (Auto) Abs Immat Gran (auto) Absolute Neuts (auto) Absolute Nucleated RBC Nucleated RBC % Sodium 139 Potassium 3.9 Chloride 107 Carbon Dioxide 25 Anion Gap 7 BUN 10 Creatinine 0.70 Estim Creat Clear Calc 74 Estimated GFR > 60 Glucose 101 POC Capillary Glucose 114 H 113 H Calcium 8.9 Magnesium 2.2 Total Bilirubin 0.6 AST 44 H ALT 19 Alkaline Phosphatase 97 Total Protein 6.6 Albumin 3.8 02/10/25 02/10/25 02/10/25 13:47 16:17 21:05 WBC RBC Hgb Hct MCV MCH MCHC RDW Plt Count MPV Immature Gran % (Auto) Neut % (Auto) Lymph % (Auto) [place] % (Auto) Eos % (Auto) Baso % (Auto) Lymph # (Auto) [place] # (Auto) Eos # (Auto) Baso # (Auto) Abs Immat Gran (auto) Absolute Neuts (auto) Absolute Nucleated RBC Nucleated RBC % Sodium Potassium Chloride Carbon Dioxide Anion Gap BUN Creatinine Estim Creat Clear Calc Estimated GFR Glucose POC Capillary Glucose 170 H 125 H 257 H Calcium Magnesium Total Bilirubin AST ALT Alkaline Phosphatase Total Protein Albumin 02/11/25 04:07 WBC 13.7 H RBC 3.97 L Hgb 12.5 Hct 39.1 MCV 98.5 MCH 31.5 MCHC 32.0 RDW 12.6 Plt Count 310 MPV 11.0 H Immature Gran % (Auto) 0.7 H Neut % (Auto) 85.4 H Lymph % (Auto) 9.4 L [place] % (Auto) 4.2 Eos % (Auto) 0.0 Baso % (Auto) 0.3 Lymph # (Auto) 1.29 [place] # (Auto) 0.6 Eos # (Auto) 0.0 Baso # (Auto) 0.0 Abs Immat Gran (auto) 0.09 H Absolute Neuts (auto) 11.7 H Absolute Nucleated RBC 0.000 Nucleated RBC % 0.0 Sodium 139 Potassium 4.0 Chloride 105 Carbon Dioxide 25 Anion Gap 9 BUN 6 L Creatinine 0.66 L Estim Creat Clear Calc 79 Estimated GFR > 60 Glucose 110 POC Capillary Glucose Calcium 9.0 Magnesium 2.2 Total Bilirubin 0.4 AST 35 ALT 28 Alkaline Phosphatase 93 Total Protein 6.9 Albumin 4.0
[2025-02-11] MEDS: UMECLIDINIUM/VILANTEROL 62.5-25 MCG ELLIPTA 1 PUFF INHALATION (07:57)
[2025-02-11 08:21] LABS: Glucose Point of Care 125 mg/dl (65-105)
[2025-02-11] MEDS: METOPROLOL SUCCINATE EXT REL 25 MG TABCR PO (08:34)
[2025-02-11] MEDS: ATORVASTATIN 20 MG TABLET PO (08:34)
[2025-02-11] MEDS: amLODIPine BESYLATE 10 MG TABLET PO (08:34)
[2025-02-11] MEDS: FLUTICASONE PROPIONATE 0.05% NA SPR 16 GM BTL (*BKC) 2 SPRAY NASAL (08:34)
[2025-02-11] MEDS: PANTOPRAZOLE SODIUM IV 40 MG VIAL IV PUSH (08:34)
[2025-02-11] MEDS: FAMOTIDINE 20 MG TABLET PO (08:34)
[2025-02-11] MEDS: polyethylene glycoL 3350 17 GM POWD.PACK PO (08:34)
[2025-02-11] MEDS: ENOXAPARIN 40 MG/0.4 ML SYRINGE SUB-Q (08:35)
--- NOTE | 2025-02-11 11:47 | P.PNGS_ITS ---
Progress Note: A&P Assessment and Plan (1) Acute calculous cholecystitis: Code(s): K80.00 - Calculus of gallbladder with acute cholecystitis without obstruction Status: Acute Assessment and Plan: continue routine postoperative care, continue low-fat diet as tolerated, encourage out of bed and use of incentive spirometer, likely home tomorrow morning Subjective Subjective Date/Time Seen: 02/11/25 11:48 Interval history: feels okay, moderate incisional soreness especially when moving Review of Systems Review of Systems: All systems reviewed & are unremarkable except as noted in HPI and below Exam Const: General: cooperative, comfortable and no acute distress Resp: Auscultation: clear to auscultation bilaterally Cardio: Rate: regular rate Rhythm: regular rhythm GI: Inspection: normal to inspection, distended and incision GI Palp: Yes abdominal tenderness and Yes Soft to palpation Objective Data Vital Signs Vital Signs: Vital Signs - 24 hr 02/10/25 12:36 02/10/25 12:45 02/10/25 13:00 Temperature 36.6 C Pulse Rate 71 57 L 53 L Respiratory Rate 20 19 17 Blood Pressure 141/61 H 130/56 L 137/53 L Pulse Oximetry 93 95 94 Oxygen Delivery Simple Face Mask Simple Face Mask Nasal Cannula Oxygen Flow Rate 10 10 2 Fraction of Inspired Oxygen 02/10/25 13:15 02/10/25 13:30 02/10/25 13:45 Temperature Pulse Rate 52 L 52 L 52 L Respiratory Rate 20 14 17 Blood Pressure 138/55 L 139/53 L 131/52 L Pulse Oximetry 96 92 94 Oxygen Delivery Nasal Cannula Nasal Cannula Nasal Cannula Oxygen Flow Rate 2 2 2 Fraction of Inspired Oxygen 02/10/25 14:00 02/10/25 14:15 02/10/25 14:26 Temperature Pulse Rate 55 L 53 L 59 L Respiratory Rate 12 12 17 Blood Pressure 131/57 L 109/62 112/56 L Pulse Oximetry 94 98 98 Oxygen Delivery Nasal Cannula Nasal Cannula Nasal Cannula Oxygen Flow Rate 2 2 2 Fraction of Inspired Oxygen 02/10/25 15:13 02/10/25 16:00 02/10/25 16:52 Temperature 36.9 C 36.6 C Pulse Rate 56 L 58 L 58 L Respiratory Rate 20 21 H 21 H Blood Pressure 119/57 L 112/55 L Pulse Oximetry 98 94 94 Oxygen Delivery Nasal Cannula Oxygen Flow Rate 2 Fraction of Inspired Oxygen 28 02/10/25 19:54 02/10/25 20:00 02/10/25 21:04 Temperature 36.6 C Pulse Rate 64 61 64 Respiratory Rate 21 H 21 H Blood Pressure 140/58 L Pulse Oximetry 95 95 Oxygen Delivery Nasal Cannula Oxygen Flow Rate 2 Fraction of Inspired Oxygen 02/10/25 21:50 02/10/25 21:50 02/10/25 22:00 Temperature Pulse Rate 59 L 59 L 59 L Respiratory Rate Blood Pressure Pulse Oximetry 95 95 Oxygen Delivery Nasal Cannula Nasal Cannula Oxygen Flow Rate 2 Fraction of Inspired Oxygen 02/10/25 23:08 02/11/25 00:00 02/11/25 00:00 Temperature 36.6 C Pulse Rate 64 64 56 L Respiratory Rate 21 H 21 H Blood Pressure 150/57 H Pulse Oximetry 95 95 Oxygen Delivery Nasal Cannula Oxygen Flow Rate 2 Fraction of Inspired Oxygen 02/11/25 02:00 02/11/25 04:00 02/11/25 04:00 Temperature 36.6 C Pulse Rate 55 L 58 L 58 L Respiratory Rate 21 H 21 H Blood Pressure 122/52 L Pulse Oximetry 98 98 Oxygen Delivery Nasal Cannula Oxygen Flow Rate 2 Fraction of Inspired Oxygen 02/11/25 04:00 02/11/25 04:48 02/11/25 06:00 Temperature Pulse Rate 59 L 59 L Respiratory Rate Blood Pressure Pulse Oximetry 96 Oxygen Delivery Nasal Cannula Oxygen Flow Rate Fraction of Inspired Oxygen 02/11/25 07:58 02/11/25 07:58 02/11/25 08:00 Temperature 36.7 C Pulse Rate 58 L 65 Respiratory Rate 22 H Blood Pressure 94/26 L Pulse Oximetry 95 92 94 Oxygen Delivery Room Air Room Air Oxygen Flow Rate Fraction of Inspired Oxygen 21 02/11/25 08:00 02/11/25 08:34 02/11/25 10:00 Temperature Pulse Rate 66 57 L 85 Respiratory Rate Blood Pressure Pulse Oximetry Oxygen Delivery Oxygen Flow Rate Fraction of Inspired Oxygen Intake/Output Intake/Output: Intake & Output 02/08/25 02/09/25 02/10/25 02/11/25 23:59 23:59 23:59 23:59 Intake Total 1720 1610 2280 Output Total 300 1100 1100 1000 Balance -300 469 688 2460 Meds/Results Medications: Active Medications Generic Name Dose Route Start Last Admin Trade Name Freq PRN Reason Stop Dose Admin Acetaminophen 650 mg 02/08/25 22:39 02/09/25 10:39 Acetaminophen 325 Mg Tablet PO 650 mg Q4H PRN Administration pain rated 1-6 Hydrocodone Bitart/Acetaminophen 1 tab 02/10/25 14:30 02/10/25 21:20 Hydrocodone/Acetaminophen (*Crx) 5-325 Mg Tablet PO 1 tab Q4H PRN Administration Pain Rated 4-6 Hydrocodone Bitart/Acetaminophen 1 tab 02/10/25 14:30 02/11/25 08:39 Hydrocodone/Acetaminophen (*Crx) 10-325 Mg Tablet PO 1 tab Q4H PRN Administration Pain Rated 7-10 Albuterol 2 puff 02/08/25 22:43 Albuterol Sulfate (*Sp) Aerosol 1 Puff INHALATION Q4HRT PRN Shortness Of Breath Alprazolam 0.5 mg 02/08/25 22:40 02/10/25 21:20 Alprazolam (*Crx) 0.5 Mg Tablet PO 0.5 mg HS PRN Administration Sleep initiation Amlodipine Besylate 10 mg 02/09/25 09:00 02/11/25 08:34 Amlodipine Besylate 10 Mg Tablet PO 10 mg DAILY [facility] Administration Atorvastatin Calcium 20 mg 02/09/25 09:00 02/11/25 08:34 Atorvastatin 20 Mg Tablet PO 20 mg DAILY [facility] Administration Clobetasol Propionate 1 applic 02/08/25 22:44 Clobetasol Propionate 0.05% Cream 15 Gm TOPICAL DAILY PRN Itching Dextrose 12.5 gm 02/08/25 22:42 Dextrose 50% 25 Gm/50 Ml Syringe IV PUSH PRN PRN Hypoglycemia Protocol Enoxaparin Sodium 40 mg 02/11/25 09:00 02/11/25 08:35 Enoxaparin 40 Mg/0.4 Ml Syringe SUB-Q 40 mg DAILY [facility] Administration Ergocalciferol 1,250 mcg 02/12/25 09:00 Ergocalciferol (Vitamin D2) 1,250 Mcg (50,000 Units) Capsule PO WEEKLY [facility] Famotidine 20 mg 02/09/25 09:00 02/11/25 08:34 Famotidine 20 Mg Tablet PO 20 mg DAILY [facility] Administration Fluticasone Propionate 2 spray 02/09/25 09:00 02/11/25 08:34 Fluticasone Propionate 0.05% Na Spr 16 Gm Btl (*Bkc) NASAL 2 spray DAILY [facility] Administration Glucagon 1 mg 02/08/25 22:42 Glucagon For Inj 1 Mg Vial IM PRN PRN Hypoglycemia Protocol Glucose 15 gm 02/08/25 22:42 Glucose Oral Gel 15 Gm Of Glucse In 37.5 Gm Tube PO PRN PRN Hypoglycemia Protocol Dextrose 1,000 mls @ 100 mls/hr 02/08/25 22:42 Dextrose 5% 1,000 Ml IVPB PRN PRN Hypoglycemia Protocol Insulin Aspart 3 - 6 units 02/09/25 08:00 02/11/25 11:41 Insulin Aspart (*Bkc) 100 Units/Ml SUB-Q Not Given TIDWM ON LICENSE OF [facility] Protocol Levothyroxine Sodium 112 mcg 02/09/25 06:30 02/11/25 05:52 Levothyroxine Sodium 112 Mcg Tablet PO 112 mcg DAILY@0630 [facility] Administration Metoclopramide HCl 10 mg 02/08/25 22:39 02/09/25 16:31 Metoclopramide Hcl Inj 10 Mg/2 Ml Vial IV PUSH 10 mg Q6HR PRN Administration nausea/vomiting Metoprolol Succinate 25 mg 02/10/25 09:00 02/11/25 08:34 Metoprolol Succinate Ext Rel 25 Mg Tabcr PO 25 mg DAILY [facility] Administration Miscellaneous Information 0 each 02/08/25 00:01 Clobetasol Add Site Of Use XX 03/10/25 00:00 CLARIFY [facility] Morphine Sulfate 2 mg 02/10/25 14:30 Morphine Sulfate (*Crx) 2 Mg/Ml Inj IV PUSH Q2H PRN Breakthrough Pain Rated 4-6 or NPO Morphine Sulfate 4 mg 02/10/25 14:30 Morphine Sulfate (*Crx) 4 Mg/Ml Inj IV PUSH Q2H PRN Breakthrough Pain Rated 7-10 or NPO Naloxone HCl 0.1 mg 02/10/25 14:30 Naloxone Hcl 0.4 Mg/Ml Vial IV PUSH Q2M PRN Opiate Reversal Ondansetron HCl 4 mg 02/08/25 18:27 Ondansetron Inj 4 Mg/2 Ml Vial IV PUSH Q4H PRN Nausea Pantoprazole Sodium 40 mg 02/09/25 09:00 02/11/25 08:34 Pantoprazole Sodium Iv 40 Mg Vial IV PUSH 40 mg QAM [facility] Administration Polyethylene Glycol 17 gm 02/09/25 15:53 02/11/25 08:34 Polyethylene Glycol 3350 17 Gm Powd.Pack PO 17 gm QAM [facility] Administration Trazodone HCl 100 mg 02/08/25 22:40 02/10/25 23:37 Trazodone Hcl 50 Mg Tablet PO 100 mg HS [facility] Administration Umeclidinium/Vilanterol 1 puff 02/09/25 08:00 02/11/25 07:57 Umeclidinium/Vilanterol 62.5-25 Mcg Ellipta INHALATION 1 puff DAILYRT [facility] Administration Radiology Results: ITS Impressions Chest X-Ray 02/08/25 14:29 Impression: 1: Bibasilar airspace disease may represent atelectasis, edema or pneumonia. Chest/Abdomen/Pelvis CTA 02/08/25 15:54 IMPRESSION: CHEST: 1. No pulmonary embolism. 2. No acute cardiopulmonary pathology. ABDOMEN/PELVIS: 1. No enhancing lesions in the liver. Differential include hepatocellular carcinoma versus arteriovenous shunting. Follow-up advised. 2. Filling defect in the portal vein which may be mixing of blood with contrast. Thrombus is less likely although cannot be excluded. Clinical correlation and if warranted ultrasound is advised. 3. Cholelithiasis. 4. Slight thickening of the wall of the sigmoid colon which may indicate colitis. Follow-up advised. 5. Thickened lower esophagus which may indicate reflux esophagitis. Abdomen Ultrasound 02/09/25 09:05 IMPRESSION: 1. Cholelithiasis with normal appearing gallbladder and no sonographic Perdue sign to suggest acute cholecystitis. 2. Diffuse hepatic steatosis with focal sparing along the gallbladder fossa. No correlate identified for the small regions of subcapsular hyperdensity/enhancement on prior CT most likely related to focal fatty sparing or transient hepatic attenuation difference. Consider pre and postcontrast MRI for further evaluation. Abdomen MRI 02/09/25 13:39 IMPRESSION: 1. . Mild diffuse hepatic steatosis with 5 mm macroscopic fat containing likely lipoma in the right hepatic lobe. No other hepatic lesions identified. No correlate identified for the appearance small ill-defined regions of peripheral enhancement at the liver on the prior arterial phase CT which would be most consistent with transient hepatic attenuation difference. 2. Persistent gallstone at the neck of the gallbladder with trace amount of pericholecystic fluid between the gallbladder and liver at the gallbladder fossa and could not exclude early acute cholecystitis although the Perdue sign was normal and the prior ultrasound. Could consider HIDA scan for more definitive determination. 3. Focal adenomyomatosis at the fundus of the gallbladder. Labs Labs: Laboratory Results - last 24 hr 02/10/25 02/10/25 02/10/25 13:47 16:17 21:05 WBC RBC Hgb Hct MCV MCH MCHC RDW Plt Count MPV Immature Gran % (Auto) Neut % (Auto) Lymph % (Auto) [place] % (Auto) Eos % (Auto) Baso % (Auto) Lymph # (Auto) [place] # (Auto) Eos # (Auto) Baso # (Auto) Abs Immat Gran (auto) Absolute Neuts (auto) Absolute Nucleated RBC Nucleated RBC % Sodium Potassium Chloride Carbon Dioxide Anion Gap BUN Creatinine Estim Creat Clear Calc Estimated GFR Glucose POC Capillary Glucose 170 H 125 H 257 H Calcium Magnesium Total Bilirubin AST ALT Alkaline Phosphatase Total Protein Albumin 02/11/25 02/11/25 04:07 07:22 WBC 13.7 H RBC 3.97 L Hgb 12.5 Hct 39.1 MCV 98.5 MCH 31.5 MCHC 32.0 RDW 12.6 Plt Count 310 MPV 11.0 H Immature Gran % (Auto) 0.7 H Neut % (Auto) 85.4 H Lymph % (Auto) 9.4 L [place] % (Auto) 4.2 Eos % (Auto) 0.0 Baso % (Auto) 0.3 Lymph # (Auto) 1.29 [place] # (Auto) 0.6 Eos # (Auto) 0.0 Baso # (Auto) 0.0 Abs Immat Gran (auto) 0.09 H Absolute Neuts (auto) 11.7 H Absolute Nucleated RBC 0.000 Nucleated RBC % 0.0 Sodium 139 Potassium 4.0 Chloride 105 Carbon Dioxide 25 Anion Gap 9 BUN 6 L Creatinine 0.66 L Estim Creat Clear Calc 79 Estimated GFR > 60 Glucose 110 POC Capillary Glucose 125 H Calcium 9.0 Magnesium 2.2 Total Bilirubin 0.4 AST 35 ALT 28 Alkaline Phosphatase 93 Total Protein 6.9 Albumin 4.0
[2025-02-11 12:02] LABS: Glucose Point of Care 161 mg/dl (65-105)
--- NOTE | 2025-02-11 15:07 | P.PNIM_ITS ---
Progress Note: A&P Assessment and Plan (1) New onset a-fib: Code(s): I48.91 - Unspecified atrial fibrillation Status: Acute Assessment and Plan: -Initial EKG a-fib RVR with spontaneous conversion -Potassium 3.2, magnesium 1.8--replaced both, recheck in AM -Heparin drip started due to elevated CHADS-VASC score -CXR with cardiomegaly, BNP mildly high -CT findings of esophagitis, prior GI bleed with aspirin -Rectal exam with occult stool negative (2) Cholelithiases: Qualifiers: Biliary obstruction: without biliary obstruction Cholecystitis presence: without cholecystitis Cholelithiasis location: gallbladder Qualified Code(s): K80.20 - Calculus of gallbladder without cholecystitis without obstruction Code(s): K80.20 - Calculus of gallbladder without cholecystitis without obstruction Status: Acute Assessment and Plan: -Patient describes epigastric pain with unrelenting nausea/vomiting for 24 hours. -Gallstone on CT scan -Will order Ultrasound for tomorrow -PRN pain and nausea medications ordered -NPO after 0300 (3) Hepatic lesion: Code(s): K76.9 - Liver disease, unspecified Status: Acute Assessment and Plan: -Two lesions noted in the liver, possible arteriovenous shunting vs HCC -Will consult IR to see about biopsy -Will stop heparin in order to potentially get biopsy (4) Acute hypokalemia: Code(s): E87.6 - Hypokalemia Status: Acute Assessment and Plan: -Replaced as above, continue to monitor -Likely made worse by HCTZ (5) Type 2 diabetes mellitus: Code(s): E11.9 - Type 2 diabetes mellitus without complications Status: Acute Assessment and Plan: -A1c 5.9, patient takes Trulicity and metformin -Hold home meds, SSI moderate dose -NPO at 0300 for possible biopsy of liver (6) Esophagitis: Code(s): K20.90 - Esophagitis, unspecified without bleeding Status: Acute Assessment and Plan: -Pantoprazole ordered -Prior GI bleed, not current -Imaging finding may be due to profuse vomiting over past 24 hours (7) HTN (hypertension): Code(s): I10 - Essential (primary) hypertension Status: Acute Assessment and Plan: -History of HTN, blood pressure checked -Leg swelling noted, may need to change amlodipine to something else (8) EILEEN (obstructive sleep apnea): Code(s): G47.33 - Obstructive sleep apnea (adult) (pediatric) Status: Acute Assessment and Plan: -Dyspnea noted, oxygen applied by nursing -AutoPap ordered but patient may decline use -She should be encouraged to have someone bring her home CPAP unit if still admitted overnight tomorrow. (9) Hypothyroidism: Code(s): E03.9 - Hypothyroidism, unspecified Status: Acute Assessment and Plan: -Continue home medication -TSH mildly low, Reflex pending (10) Insomnia: Code(s): G47.00 - Insomnia, unspecified Status: Chronic Assessment and Plan: -Hold zolpidem while in hospital -Ordered 0.5 mg alprazolam and 100 mg trazodone QHS for sleep initiation and sleep duration Plan 74 y/o female presented with c/o abdominal pain and persistent n/v, Ct scan of abdomen was concerning for hepatocellular carcinoma abd radiologist recommended MRI, patient stats feels litter better compared when she arrived, will follow up on MRI and further recommendation to follow. MRI of abdomen showed persistent gallstone at the neck of the gallbladder with trace amount of pericholecystic fluid between the gallbladder and liver at the gallbladder fossa and could not exclude early acute cholecystitis although the Perdue sign was normal and the prior ultrasound. concerning cholecystitis today patient was seen by general surgery serivice and patient had laparoscopic cholecystectomy, POD #1, today patient stats pain is better, was able to tolerated clear liquids and had BM, will advance to low fat diet. will monitor, will discharge patient home tomorrow. -Cardiology consulted -Echo cardiogram ordered -RUQ US ordered for gallstone, epigastric pain, nausea/vomiting--patient may benefit from General Surgery referral or consult Subjective Date/time seen: 02/11/25 15:07 Interval history: 74 y/o female presented with c/o abdominal pain and persistent n/v, Ct scan of abdomen was concerning for hepatocellular carcinoma abd radiologist recommended MRI, patient stats feels litter better compared when she arrived, will follow up on MRI and further recommendation to follow. MRI of abdomen showed persistent gallstone at the neck of the gallbladder with trace amount of pericholecystic fluid between the gallbladder and liver at the gallbladder fossa and could not exclude early acute cholecystitis although the Perdue sign was normal and the prior ultrasound. concerning cholecystitis today patient was seen by general surgery serivice and patient had laparoscopic cholecystectomy, POD #1, today patient stats pain is better, was able to tolerated clear liquids and had BM, will advance to low fat diet. will monitor, will discharge patient home tomorrow. Review of Systems Review of Systems: All systems reviewed & are unremarkable except as noted in HPI and below Exam Narrative: Morbidly obese Patient is comfortable, NAD HEENT: eyes are clear and none icteric LUNGS:CTA HEART: RR S1S2 ABD: Distended Lower extremities: no edema SKIN: nonjaundiced Neuro: grossly intact. Objective Data Vital Signs Vital Signs: Vital Signs - 24 hr 02/10/25 15:13 02/10/25 16:00 02/10/25 16:52 Temperature 36.9 C 36.6 C Pulse Rate 56 L 58 L 58 L Respiratory Rate 20 21 H 21 H Blood Pressure 119/57 L 112/55 L Pulse Oximetry 98 94 94 Oxygen Delivery Nasal Cannula Oxygen Flow Rate 2 Fraction of Inspired Oxygen 28 02/10/25 19:54 02/10/25 20:00 02/10/25 21:04 Temperature 36.6 C Pulse Rate 64 61 64 Respiratory Rate 21 H 21 H Blood Pressure 140/58 L Pulse Oximetry 95 95 Oxygen Delivery Nasal Cannula Oxygen Flow Rate 2 Fraction of Inspired Oxygen 02/10/25 21:50 02/10/25 21:50 02/10/25 22:00 Temperature Pulse Rate 59 L 59 L 59 L Respiratory Rate Blood Pressure Pulse Oximetry 95 95 Oxygen Delivery Nasal Cannula Nasal Cannula Oxygen Flow Rate 2 Fraction of Inspired Oxygen 02/10/25 23:08 02/11/25 00:00 02/11/25 00:00 Temperature 36.6 C Pulse Rate 64 64 56 L Respiratory Rate 21 H 21 H Blood Pressure 150/57 H Pulse Oximetry 95 95 Oxygen Delivery Nasal Cannula Oxygen Flow Rate 2 Fraction of Inspired Oxygen 02/11/25 02:00 02/11/25 04:00 02/11/25 04:00 Temperature 36.6 C Pulse Rate 55 L 58 L 58 L Respiratory Rate 21 H 21 H Blood Pressure 122/52 L Pulse Oximetry 98 98 Oxygen Delivery Nasal Cannula Oxygen Flow Rate 2 Fraction of Inspired Oxygen 02/11/25 04:00 02/11/25 04:48 02/11/25 06:00 Temperature Pulse Rate 59 L 59 L Respiratory Rate Blood Pressure Pulse Oximetry 96 Oxygen Delivery Nasal Cannula Oxygen Flow Rate Fraction of Inspired Oxygen 02/11/25 07:58 02/11/25 07:58 02/11/25 08:00 Temperature 36.7 C Pulse Rate 58 L 65 Respiratory Rate 22 H Blood Pressure 94/26 L Pulse Oximetry 95 92 94 Oxygen Delivery Room Air Room Air Oxygen Flow Rate Fraction of Inspired Oxygen 21 02/11/25 08:00 02/11/25 08:34 02/11/25 10:00 Temperature Pulse Rate 66 57 L 85 Respiratory Rate Blood Pressure Pulse Oximetry Oxygen Delivery Oxygen Flow Rate Fraction of Inspired Oxygen Intake/Output Intake/Output: Intake & Output 02/08/25 02/09/25 02/10/25 02/11/25 23:59 23:59 23:59 23:59 Intake Total 1720 1610 2640 Output Total 300 1100 1100 1000 Balance -300 797 343 7835 Meds/Results Medications: Active Medications Generic Name Dose Route Start Last Admin Trade Name Freq PRN Reason Stop Dose Admin Acetaminophen 650 mg 02/08/25 22:39 02/09/25 10:39 Acetaminophen 325 Mg Tablet PO 650 mg Q4H PRN Administration pain rated 1-6 Hydrocodone Bitart/Acetaminophen 1 tab 02/10/25 14:30 02/10/25 21:20 Hydrocodone/Acetaminophen (*Crx) 5-325 Mg Tablet PO 1 tab Q4H PRN Administration Pain Rated 4-6 Hydrocodone Bitart/Acetaminophen 1 tab 02/10/25 14:30 02/11/25 08:39 Hydrocodone/Acetaminophen (*Crx) 10-325 Mg Tablet PO 1 tab Q4H PRN Administration Pain Rated 7-10 Albuterol 2 puff 02/08/25 22:43 Albuterol Sulfate (*Sp) Aerosol 1 Puff INHALATION Q4HRT PRN Shortness Of Breath Alprazolam 0.5 mg 02/08/25 22:40 02/10/25 21:20 Alprazolam (*Crx) 0.5 Mg Tablet PO 0.5 mg HS PRN Administration Sleep initiation Amlodipine Besylate 10 mg 02/09/25 09:00 02/11/25 08:34 Amlodipine Besylate 10 Mg Tablet PO 10 mg DAILY FELIX Administration Atorvastatin Calcium 20 mg 02/09/25 09:00 02/11/25 08:34 Atorvastatin 20 Mg Tablet PO 20 mg DAILY FELIX Administration Clobetasol Propionate 1 applic 02/08/25 22:44 Clobetasol Propionate 0.05% Cream 15 Gm TOPICAL DAILY PRN Itching Dextrose 12.5 gm 02/08/25 22:42 Dextrose 50% 25 Gm/50 Ml Syringe IV PUSH PRN PRN Hypoglycemia Protocol Enoxaparin Sodium 40 mg 02/11/25 09:00 02/11/25 08:35 Enoxaparin 40 Mg/0.4 Ml Syringe SUB-Q 40 mg DAILY FELIX Administration Ergocalciferol 1,250 mcg 02/12/25 09:00 Ergocalciferol (Vitamin D2) 1,250 Mcg (50,000 Units) Capsule PO WEEKLY FELIX Famotidine 20 mg 02/09/25 09:00 02/11/25 08:34 Famotidine 20 Mg Tablet PO 20 mg DAILY FELIX Administration Fluticasone Propionate 2 spray 02/09/25 09:00 02/11/25 08:34 Fluticasone Propionate 0.05% Na Spr 16 Gm Btl (*Bkc) NASAL 2 spray DAILY FELIX Administration Glucagon 1 mg 02/08/25 22:42 Glucagon For Inj 1 Mg Vial IM PRN PRN Hypoglycemia Protocol Glucose 15 gm 02/08/25 22:42 Glucose Oral Gel 15 Gm Of Glucse In 37.5 Gm Tube PO PRN PRN Hypoglycemia Protocol Dextrose 1,000 mls @ 100 mls/hr 02/08/25 22:42 Dextrose 5% 1,000 Ml IVPB PRN PRN Hypoglycemia Protocol Insulin Aspart 3 - 6 units 02/09/25 08:00 02/11/25 11:41 Insulin Aspart (*Bkc) 100 Units/Ml SUB-Q Not Given TIDWM [facility] Protocol Levothyroxine Sodium 112 mcg 02/09/25 06:30 02/11/25 05:52 Levothyroxine Sodium 112 Mcg Tablet PO 112 mcg DAILY@0630 FELIX Administration Metoclopramide HCl 10 mg 02/08/25 22:39 02/09/25 16:31 Metoclopramide Hcl Inj 10 Mg/2 Ml Vial IV PUSH 10 mg Q6HR PRN Administration nausea/vomiting Metoprolol Succinate 25 mg 02/10/25 09:00 02/11/25 08:34 Metoprolol Succinate Ext Rel 25 Mg Tabcr PO 25 mg DAILY FELIX Administration Miscellaneous Information 0 each 02/08/25 00:01 Clobetasol Add Site Of Use XX 03/10/25 00:00 CLARIFY FELIX Morphine Sulfate 2 mg 02/10/25 14:30 Morphine Sulfate (*Crx) 2 Mg/Ml Inj IV PUSH Q2H PRN Breakthrough Pain Rated 4-6 or NPO Morphine Sulfate 4 mg 02/10/25 14:30 Morphine Sulfate (*Crx) 4 Mg/Ml Inj IV PUSH Q2H PRN Breakthrough Pain Rated 7-10 or NPO Naloxone HCl 0.1 mg 02/10/25 14:30 Naloxone Hcl 0.4 Mg/Ml Vial IV PUSH Q2M PRN Opiate Reversal Ondansetron HCl 4 mg 02/08/25 18:27 Ondansetron Inj 4 Mg/2 Ml Vial IV PUSH Q4H PRN Nausea Pantoprazole Sodium 40 mg 02/09/25 09:00 02/11/25 08:34 Pantoprazole Sodium Iv 40 Mg Vial IV PUSH 40 mg QAM FELIX Administration Polyethylene Glycol 17 gm 02/09/25 15:53 02/11/25 08:34 Polyethylene Glycol 3350 17 Gm Powd.Pack PO 17 gm QAM FELIX Administration Trazodone HCl 100 mg 02/08/25 22:40 02/10/25 23:37 Trazodone Hcl 50 Mg Tablet PO 100 mg HS FELIX Administration Umeclidinium/Vilanterol 1 puff 02/09/25 08:00 02/11/25 07:57 Umeclidinium/Vilanterol 62.5-25 Mcg Ellipta INHALATION 1 puff DAILYRT FELIX Administration Radiology Results: ITS Impressions Chest X-Ray 02/08/25 14:29 Impression: 1: Bibasilar airspace disease may represent atelectasis, edema or pneumonia. Chest/Abdomen/Pelvis CTA 02/08/25 15:54 IMPRESSION: CHEST: 1. No pulmonary embolism. 2. No acute cardiopulmonary pathology. ABDOMEN/PELVIS: 1. No enhancing lesions in the liver. Differential include hepatocellular carcinoma versus arteriovenous shunting. Follow-up advised. 2. Filling defect in the portal vein which may be mixing of blood with contrast. Thrombus is less likely although cannot be excluded. Clinical correlation and if warranted ultrasound is advised. 3. Cholelithiasis. 4. Slight thickening of the wall of the sigmoid colon which may indicate colitis. Follow-up advised. 5. Thickened lower esophagus which may indicate reflux esophagitis. Abdomen Ultrasound 02/09/25 09:05 IMPRESSION: 1. Cholelithiasis with normal appearing gallbladder and no sonographic Perdue sign to suggest acute cholecystitis. 2. Diffuse hepatic steatosis with focal sparing along the gallbladder fossa. No correlate identified for the small regions of subcapsular hyperdensity/enhancement on prior CT most likely related to focal fatty sparing or transient hepatic attenuation difference. Consider pre and postcontrast MRI for further evaluation. Abdomen MRI 02/09/25 13:39 IMPRESSION: 1. . Mild diffuse hepatic steatosis with 5 mm macroscopic fat containing likely lipoma in the right hepatic lobe. No other hepatic lesions identified. No correlate identified for the appearance small ill-defined regions of peripheral enhancement at the liver on the prior arterial phase CT which would be most consistent with transient hepatic attenuation difference. 2. Persistent gallstone at the neck of the gallbladder with trace amount of pericholecystic fluid between the gallbladder and liver at the gallbladder fossa and could not exclude early acute cholecystitis although the Perdue sign was normal and the prior ultrasound. Could consider HIDA scan for more definitive determination. 3. Focal adenomyomatosis at the fundus of the gallbladder. Labs Labs: Laboratory Results - last 24 hr 02/10/25 02/10/25 02/11/25 16:17 21:05 04:07 WBC 13.7 H RBC 3.97 L Hgb 12.5 Hct 39.1 MCV 98.5 MCH 31.5 MCHC 32.0 RDW 12.6 Plt Count 310 MPV 11.0 H Immature Gran % (Auto) 0.7 H Neut % (Auto) 85.4 H Lymph % (Auto) 9.4 L [place] % (Auto) 4.2 Eos % (Auto) 0.0 Baso % (Auto) 0.3 Lymph # (Auto) 1.29 [place] # (Auto) 0.6 Eos # (Auto) 0.0 Baso # (Auto) 0.0 Abs Immat Gran (auto) 0.09 H Absolute Neuts (auto) 11.7 H Absolute Nucleated RBC 0.000 Nucleated RBC % 0.0 Sodium 139 Potassium 4.0 Chloride 105 Carbon Dioxide 25 Anion Gap 9 BUN 6 L Creatinine 0.66 L Estim Creat Clear Calc 79 Estimated GFR > 60 Glucose 110 POC Capillary Glucose 125 H 257 H Calcium 9.0 Magnesium 2.2 Total Bilirubin 0.4 AST 35 ALT 28 Alkaline Phosphatase 93 Total Protein 6.9 Albumin 4.0 02/11/25 02/11/25 07:22 11:34 WBC RBC Hgb Hct MCV MCH MCHC RDW Plt Count MPV Immature Gran % (Auto) Neut % (Auto) Lymph % (Auto) [place] % (Auto) Eos % (Auto) Baso % (Auto) Lymph # (Auto) [place] # (Auto) Eos # (Auto) Baso # (Auto) Abs Immat Gran (auto) Absolute Neuts (auto) Absolute Nucleated RBC Nucleated RBC % Sodium Potassium Chloride Carbon Dioxide Anion Gap BUN Creatinine Estim Creat Clear Calc Estimated GFR Glucose POC Capillary Glucose 125 H 161 H Calcium Magnesium Total Bilirubin AST ALT Alkaline Phosphatase Total Protein Albumin Quality VTE Prophylaxis VTE prophylaxis: mechanical ordered and pharmacologic ordered (heparin (on hold pending possible biopsy and cardiology consult))
[2025-02-11 16:40] LABS: Glucose Point of Care 114 mg/dl (65-105)
[2025-02-11 21:51] LABS: Glucose Point of Care 132 mg/dl (65-105)
[2025-02-11] MEDS: traZODone HCL 50 MG TABLET 100 MG PO (22:15)
[2025-02-12] VITALS (7 sets, daily range): BP systolic 115; BP diastolic 59; PULSE 50–78; RESP 16; TEMP 36.6; O2SAT 94–96
[2025-02-12] MEDS: HYDROcodone/acetaminophen (*CRX) 10-325 MG TABLET 1 TAB PO ×3 (02:27→14:33)
[2025-02-12] MEDS: ALPRAZolam (*CRX) 0.5 MG TABLET PO (02:32)
[2025-02-12] MEDS: LEVOTHYROXINE SODIUM 112 MCG TABLET PO (05:31)
[2025-02-12 05:55] LABS: Basophils Absolute Auto 0.1 K/mm3 (0.0-0.1); Basophils Percent Auto 0.6 % (0.2-1.2); Eosinophils Absolute Auto 0.3 K/mm3 (0-0.3); Eosinophils Percent Auto 2.4 % (0-4.4); Hematocrit 37.8 % (37.0-47.0); Hemoglobin 11.8 g/dL (12.0-15.0); Immature Granulocyte Absolute 0.05 K/mm3 (0.00-0.031); Immature Granulocyte Percent A 0.4 % (0-0.5); Lymphocytes Absolute Auto 3.17 K/mm3 (0.9-3.2); Lymphocytes Percent Auto 27.7 % (18.3-44.2); Mean Corpuscular HGB Conc 31.2 g/dl (32-36); Mean Corpuscular Hemoglobin 31.1 pg (26-34); Mean Corpuscular Volume 99.5 fl (80-100); Mean Platelet Volume 10.9 fl (7.4-10.4); Monocytes Absolute Auto 0.6 K/mm3 (0.1-0.6); Monocytes Percent Auto 5.3 % (2.6-8.5); Neutrophils Absolute Auto 7.3 K/mm3 (1.3-6.7); Neutrophils Percent Auto 63.6 % (45.5-73.1); Platelet Count Result 281 k/mm3 (150-375); Red Cell Distribution Width 12.8 % (11.5-14.5); White Blood Count 11.4 K/mm3 (4.5-10.0)
[2025-02-12 06:11] LABS: Alanine Aminotransferase 27 U/L (6-35); Albumin Level 3.5 g/dL (3.5-5.1); Alkaline Phosphatase 89 U/L (38-126); Anion Gap 3 mmol/L (4-12); Aspartate Amino Transferase 25 U/L (14-36); Bilirubin,Total 0.4 mg/dL (0.2-1.3); Blood Urea Nitrogen 9 mg/dL (7-17); Calcium 8.5 mg/dL (8.4-10.2); Carbon Dioxide 33 mmol/L (22-30); Chloride 104 mmol/L (98-107); Estimated CRCL calculation 82 ml/min; Estimated Glomerular Filt Rate > 60; Glucose 103 mg/dL (65-110); Magnesium 2.1 mg/dL (1.6-2.3); Potassium 3.9 mmol/L (3.4-5.0); Sodium 140 mmol/L (137-145); Total Protein 6.2 g/dL (6.3-8.2)
[2025-02-12] MEDS: FAMOTIDINE 20 MG TABLET PO (09:55)
[2025-02-12] MEDS: ATORVASTATIN 20 MG TABLET PO (09:55)
[2025-02-12] MEDS: METOPROLOL SUCCINATE EXT REL 25 MG TABCR PO (09:56)
[2025-02-12] MEDS: FLUTICASONE PROPIONATE 0.05% NA SPR 16 GM BTL (*BKC) 2 SPRAY NASAL (09:56)
[2025-02-12] MEDS: ERGOCALCIFEROL (VITAMIN D2) 1,250 MCG (50,000 UNITS) CAPSULE 1250 MCG PO (09:56)
[2025-02-12] MEDS: ENOXAPARIN 40 MG/0.4 ML SYRINGE SUB-Q (09:56)
[2025-02-12] MEDS: PANTOPRAZOLE SODIUM IV 40 MG VIAL IV PUSH (09:58)
[2025-02-12] MEDS: polyethylene glycoL 3350 17 GM POWD.PACK PO (09:58)
[2025-02-12] MEDS: UMECLIDINIUM/VILANTEROL 62.5-25 MCG ELLIPTA 1 PUFF INHALATION (10:54)
--- NOTE | 2025-02-12 11:09 | P.DS_ITS ---
DS: Admitting Diagnosis Discharge Date 02/12/2025 Admitting Diagnosis Nausea/vomiting, epigastric pain, new A-fib RVR, possible new CHF (leg swelling and cardiomegaly) DS: Discharge Diagnosis Discharge Diagnosis (1) Cholelithiases: Qualifiers: Biliary obstruction: without biliary obstruction Cholecystitis presence: without cholecystitis Cholelithiasis location: gallbladder Qualified Code(s): K80.20 - Calculus of gallbladder without cholecystitis without o bstruction Code(s): K80.20 - Calculus of gallbladder without cholecystitis without obstruction Status: Acute Assessment and Plan: -Patient describes epigastric pain with unrelenting nausea/vomiting for 24 hours. -Gallstone on CT scan -Will order Ultrasound for tomorrow -PRN pain and nausea medications ordered -NPO after 0300 (2) New onset a-fib: Code(s): I48.91 - Unspecified atrial fibrillation Status: Acute Assessment and Plan: -Initial EKG a-fib RVR with spontaneous conversion -Potassium 3.2, magnesium 1.8--replaced both, recheck in AM -Heparin drip started due to elevated CHADS-VASC score -CXR with cardiomegaly, BNP mildly high -CT findings of esophagitis, prior GI bleed with aspirin -Rectal exam with occult stool negative (3) Hepatic lesion: Code(s): K76.9 - Liver disease, unspecified Status: Acute Assessment and Plan: -Two lesions noted in the liver, possible arteriovenous shunting vs HCC -Will consult IR to see about biopsy -Will stop heparin in order to potentially get biopsy (4) Acute hypokalemia: Code(s): E87.6 - Hypokalemia Status: Acute Assessment and Plan: -Replaced as above, continue to monitor -Likely made worse by HCTZ (5) Type 2 diabetes mellitus: Code(s): E11.9 - Type 2 diabetes mellitus without complications Status: Acute Assessment and Plan: -A1c 5.9, patient takes Trulicity and metformin -Hold home meds, SSI moderate dose -NPO at 0300 for possible biopsy of liver (6) Esophagitis: Code(s): K20.90 - Esophagitis, unspecified without bleeding Status: Acute Assessment and Plan: -Pantoprazole ordered -Prior GI bleed, not current -Imaging finding may be due to profuse vomiting over past 24 hours (7) HTN (hypertension): Code(s): I10 - Essential (primary) hypertension Status: Acute Assessment and Plan: -History of HTN, blood pressure checked -Leg swelling noted, may need to change amlodipine to something else (8) EILEEN (obstructive sleep apnea): Code(s): G47.33 - Obstructive sleep apnea (adult) (pediatric) Status: Acute Assessment and Plan: -Dyspnea noted, oxygen applied by nursing -AutoPap ordered but patient may decline use -She should be encouraged to have someone bring her home CPAP unit if still admitted overnight tomorrow. (9) Hypothyroidism: Code(s): E03.9 - Hypothyroidism, unspecified Status: Acute Assessment and Plan: -Continue home medication -TSH mildly low, Reflex pending (10) Insomnia: Code(s): G47.00 - Insomnia, unspecified Status: Chronic Assessment and Plan: -Hold zolpidem while in hospital -Ordered 0.5 mg alprazolam and 100 mg trazodone QHS for sleep initiation and sleep duration Plan 74 y/o female presented with c/o abdominal pain and persistent n/v, Ct scan of abdomen was concerning for hepatocellular carcinoma abd radiologist recommended MRI, patient stats feels litter better compared when she arrived, will follow up on MRI and further recommendation to follow. MRI of abdomen showed persistent gallstone at the neck of the gallbladder with trace amount of pericholecystic fluid between the gallbladder and liver at the gallbladder fossa and could not exclude early acute cholecystitis although the Perdue sign was normal and the prior ultrasound. concerning cholecystitis today patient was seen by general surgery serivice and patient had laparoscopic cholecystectomy, POD #1, today patient stats pain is better, was able to tolerated clear liquids and had BM, will advance to low fat diet. will monitor, will discharge patient home tomorrow. -Cardiology consulted -Echo cardiogram ordered -RUQ US ordered for gallstone, epigastric pain, nausea/vomiting--patient may benefit from General Surgery referral or consult DS: Summary Hospital Course Hospital Course: 74 y/o female presented with c/o abdominal pain and persistent n/v, Ct scan of abdomen was concerning for hepatocellular carcinoma abd radiologist recommended MRI, patient stats feels litter better compared when she arrived, will follow up on MRI and further recommendation to follow. MRI of abdomen showed persistent gallstone at the neck of the gallbladder with trace amount of pericholecystic fluid between the gallbladder and liver at the gallbladder fossa and could not exclude early acute cholecystitis although the Perdue sign was normal and the prior ultrasound. concerning cholecystitis today patient was seen by general surgery serivice and patient had laparoscopic cholecystectomy, POD #1, today patient stats pain is better, was able to tolerated clear liquids and had BM, will advance to low fat diet. will monitor, will discharge patient home tomorrow. Today patient was able tolerate her regular diet and had BM, patient stats feels better and clinically stable, will discharge home today. Time Spent with Patient Time attestation: Total time spent providing and/or coordinating discharge services: Exam Narrative: Morbidly obese Patient is comfortable, NAD HEENT: eyes are clear and none icteric LUNGS:CTA HEART: RR S1S2 ABD: Distended Lower extremities: no edema SKIN: nonjaundiced Neuro: grossly intact. DS: Data Data Completed and Pending Pending studies at discharge: Pending at discharge 02/10/25 12:22 Surgical [PTH] Routine Labs on day of discharge: Labs from last 24 hours 02/12/25 02/11/25 02/11/25 05:26 20:29 16:01 WBC 11.4 H RBC 3.80 L Hgb 11.8 L Hct 37.8 MCV 99.5 MCH 31.1 MCHC 31.2 L RDW 12.8 Plt Count 281 MPV 10.9 H Immature Gran % (Auto) 0.4 Neut % (Auto) 63.6 Lymph % (Auto) 27.7 [place] % (Auto) 5.3 Eos % (Auto) 2.4 Baso % (Auto) 0.6 Lymph # (Auto) 3.17 [place] # (Auto) 0.6 Eos # (Auto) 0.3 Baso # (Auto) 0.1 Abs Immat Gran (auto) 0.05 H Absolute Neuts (auto) 7.3 H Absolute Nucleated RBC 0.000 Nucleated RBC % 0.0 Sodium 140 Potassium 3.9 Chloride 104 Carbon Dioxide 33 H Anion Gap 3 L BUN 9 Creatinine 0.64 L Estim Creat Clear Calc 82 Estimated GFR > 60 Glucose 103 POC Capillary Glucose 132 H 114 H Calcium 8.5 Magnesium 2.1 Total Bilirubin 0.4 AST 25 ALT 27 Alkaline Phosphatase 89 Total Protein 6.2 L Albumin 3.5 02/11/25 11:34 WBC RBC Hgb Hct MCV MCH MCHC RDW Plt Count MPV Immature Gran % (Auto) Neut % (Auto) Lymph % (Auto) [place] % (Auto) Eos % (Auto) Baso % (Auto) Lymph # (Auto) [place] # (Auto) Eos # (Auto) Baso # (Auto) Abs Immat Gran (auto) Absolute Neuts (auto) Absolute Nucleated RBC Nucleated RBC % Sodium Potassium Chloride Carbon Dioxide Anion Gap BUN Creatinine Estim Creat Clear Calc Estimated GFR Glucose POC Capillary Glucose 161 H Calcium Magnesium Total Bilirubin AST ALT Alkaline Phosphatase Total Protein Albumin Discharge Plan Discharge Attending physician on discharge: Diogo Elise Consulting providers: Beck Lopez; Amador Billings; Rylee Aguilar; Meredith Tavarez; Irwin Ozuna; Max Ford; Juan Alberto Castorena; Yousif Vergara; Rhea Bennett; Anupam Manning; Keven Piedra; Jarred Akers Discharging Clinician: Sanjay Wolf Patient Disposition: Home Activity: other - see discharge instructions Diet: low fat Wound Care Instructions: other - see discharge instructions Discharge Instructions: DISCHARGE INSTRUCTION SHEET FOR HERNIA, GALLBLADDER AND APPENDIX SURGERIES DR. BILLINGS PATIENT TO TAKE HOME 1. May shower in 24 hours, no soaking in bath x 2weeks. 2. Call office for: * Wound increasingly painful or bleeding * Vomiting * Fever of greater than 101 degrees 3. If no bowel movement for three days, take 1 oz. (30 ml) Milk of Magnesia or MiraLax 17g 1 to 2 times daily. 4. No heavy lifting > 10-15 pounds x weeks for hernia repairs and 2 weeks for laparoscopic cholecystectomy or appendectomy. 5. No driving for 3 days or while taking narcotic pain medications. 6. Ice to surgical site for 48 hours (30 min on, then 30 min off). 7. Up walking 10-30 minutes three times per day. 8. Resume previous home medications. 9. Follow-up 10-14 days in office for wound check or as previously scheduled. [phone]) 10. Oral pain medications prescription to be sent to pharmacy. Take Tylenol 500mg every 6 hours and Ibuprofen 600mg every 6 hours for the first 2 days, then as needed. 11. NUTRITION: Start out by drinking fluids and increase your diet as tolerated. If you experience nausea, try dry toast, crackers, and 7-UP. If nausea or vomiting persists, contact your surgeon?s office. 12. Gallbladders-Low Fat Diet for 2 weeks (send care note of low fat diet) 13. Inguinal Hernias-wear scrotal support for 48 hours 14. Abdominal Hernias-if sent home with abdominal binder, wear for the first 2 weeks (may remove to shower or at night to sleep). Patient to follow discharge care instruction from her surgeon and follow up as scheduled, patient to follow up with her primary care provider as soon as possible. patient is instructed if any symptoms worsen to go to nearest ER HOJA DE INSTRUCCIONES PARA EL CHRISTIANA PARA CIRUG? DE HERNIA, VES?CULA BILIAR Y AP?BRENDEN BILLINGS EL PACIENTE DEBE LLEVARSE A CASA 1. Puede ducharse en 24 horas, sin sumergirse en la ba?era armida 2 semanas. 2. Llame a la consulta si: ? Dolor o sangrado crecientes en la herida ? V?mitos ? Fiebre superior a 38 ?C 3. Si no cerna evacuado armida tomas d?as, tome 30 ml (1 oz) de Leche de Magnesia o MiraLax 17 g, 1 o 2 veces al d?a. 4. No levante objetos pesados ??de m?s de 4.5 a 7 kg armida semanas en gustavo de reparaci?n de hernia y 2 semanas en gustavo de colecistectom?a o apendicectom?a laparosc?pica. 5. No conduzca armida 3 d?as ni mientras est? tomando analg?sicos narc?ticos. 6. Hielo en la smita quir?rgica armida 48 horas (30 minutos con hielo y 30 minutos sin hielo). 7. Caminar de 10 a 30 minutos tomas veces al d?a. 8. Reanudar la medicaci?n que tomaba en casa. 9. Visita de seguimiento en la consulta de 10 a 14 d?as para revisi?n de la herida o seg?n lo programado previamente. [phone]) 10. Enviar la receta de analg?sicos orales a la farmacia. [place] Tylenol 500 mg cada 6 horas e ibuprofeno 600 mg cada 6 horas armida los primeros 2 d?as y, posteriormente, seg?n sea necesario. 11. NUTRICI?N: Comience bebiendo l?quidos y aumente la ingesta seg?n lo tolere. Si experimenta n?useas, pruebe con tostadas secas, galletas saladas y 7-UP. Si las n?useas o los v?mitos persisten, comun?quese con la consulta de kaur cirujano. 12. Ves?cula biliar: Dieta baja en grasas armida 2 semanas (enviar nota de cuidados de la dieta baja en grasas). 13. Hernias inguinales: Usar soporte escrotal armida 48 horas. 14. Hernias abdominales: Si se le da de christiana con faja abdominal, usarla armida las primeras 2 semanas (puede quit?rsela para ducharse o por la noche para dormir). La paciente debe seguir las instrucciones de kaur cirujano al christiana y realizar el seguimiento programado. Debe realizar el seguimiento con kaur m?dico de cabecera lo antes posible. Si los s?ntomas empeoran, se le indica que acuda a la asa de urgencias m?s cercana. Revisado en doyle 2018 Revised January 2019 Patient Instructions: Antibiotic Form, Heart Failure (GEN), Low Fat Diet (DC), Low Fat Diet (GEN), Skin Adhesive Care (DC), Laparoscopic Cholecystectomy (DC) Patient Language: Serbian Stand Alone Forms: General Discharge Information Follow-up/Referrals: Merly,MD Gail [Primary Care Provider] - Amador Billings DO [Physician] - 2 Weeks Discharge Medications: New polyethylene glycol 3350 [Miralax] 17 gram Powder In Packet 17 g PO QAM Qty: 14 0RF metoprolol succinate [Toprol XL] 25 mg Tablet Extended Release 24 Hr 25 mg PO DAILY Qty: 30 0RF hydrocodone-acetaminophen 5-325 mg Tablet 1 tablet PO Q4H PRN (Reason: Pain Rated 4-6) Qty: 15 0RF Continued atorvastatin 20 mg tablet 20 mg PO DAILY clobetasol 0.05 % cream 1 applic TOPICAL DAILY PRN (Reason: Itching) famotidine 20 mg tablet 20 mg PO DAILY amlodipine 10 mg tablet 10 mg PO DAILY zolpidem 5 mg tablet 5 mg PO QHS ergocalciferol (vitamin D2) 1,250 mcg (50,000 unit) capsule 1,250 mcg PO WEEKLY Patient Comments: pt. takes on Sundays fluticasone propionate 50 mcg/actuation spray,suspension 50 mcg INTRANASAL DAILY metformin 500 mg tablet extended release 24 hr 500 mg PO BID levothyroxine 112 mcg tablet 112 mcg PO DAILY Trulicity 0.75 mg/0.5 mL pen injector 0.75 mg SUBCUT WEEKLY Patient Comments: pt. takes on Sundays hydrochlorothiazide 25 mg Tablet 25 mg PO DAILY albuterol 90 mcg/actuation Aerosol 90 mcg INHALATION DAILY PRN (Reason: SOB) umeclidinium-vilanterol [Anoro Ellipta] 62.5-25 mcg/actuation Blister With Device 1 inh INHALATION DAILY Calcium Adult 1 tab-cap PO DAILY Vitamin B-6 1 tab-cap PO DAILY Vitamin C 1 tab-cap PO DAILY zinc 1 tab-cap PO DAILY Discontinued metoprolol succinate 100 mg tablet extended release 24 hr 100 mg PO DAILY Date of admission: 02/09/25 07:34 Primary Care Provider: Merly,Gail Admitting Provider: Diogo Elise Attending physician on admission: Sanjay Wolf Condition: Stable
[2025-02-12] MEDS: amLODIPine BESYLATE 10 MG TABLET PO (12:35)
[2025-02-12 17:28] LABS: Glucose Point of Care 154 mg/dl (65-105)
== END 2025-02-12 15:50 | disposition home or self-care (01) | DRG 419 ==
LOC: ANHED 18:26 → ANH3MEDSUR 20:27 → ANHIMU 20:36 → ANH3MED 02-12 11:04 → ANHIMU 02-14 09:19
PROVIDERS: Nurse Practitioner; Surgery; Admitting Provider General Practice; Emergency Provider Physician Assistant; PCP Internal Medicine; Visit Provider Family Medicine
PROC: 0FT44ZZ Resection of Gallbladder, Percutaneous Endoscopic Approach (ICD-10-PCS; CPT 47562; principal; 2025-02-10 10:30)
DX: K80.10 Calculus of gallbladder with chronic cholecystitis without obstruction (principal); I48.0 Paroxysmal atrial fibrillation; K20.90 Esophagitis, unspecified without bleeding; K76.0 Fatty (change of) liver, not elsewhere classified; K52.9 Noninfective gastroenteritis and colitis, unspecified; K21.9 Gastro-esophageal reflux disease without esophagitis; K76.9 Liver disease, unspecified; E87.6 Hypokalemia; E11.9 Type 2 diabetes mellitus without complications; F51.04 Psychophysiologic insomnia; G47.33 Obstructive sleep apnea (adult) (pediatric); I10 Essential (primary) hypertension; J45.909 Unspecified asthma, uncomplicated; R16.0 Hepatomegaly, not elsewhere classified; E03.9 Hypothyroidism, unspecified; Z79.84 Long term (current) use of oral hypoglycemic drugs; Z79.85 Long-term (current) use of injectable non-insulin antidiabetic drugs; E66.01 Morbid (severe) obesity due to excess calories; Z87.891 Personal history of nicotine dependence
CPT/HCPCS: 36415; 71045; 71275; 74174; 74183; 76705; 80053; 81001; 82607; 82728; 82746; 82948; 83036; 83540; 83550; 83690; 83735; 83880; 84439; 84443; 84480; 84484; 85025; 85610; 85730; 86850; 86900; 86901; 88304; 93005; 93306; 93976; 94640; 96365; 96366; 96375; 96376; 99285; A9270; A9577; G0378; J0330; J0690; J1100; J1171; J1644; J1650; J2270; J2405; J2470; J2704; J2765; J3010; J3475; J7030; J7120; Q9957; Q9967

== ENCOUNTER 2025-04-13 08:53 | Outpatient (CLI) | payer MEDICARE, MEDICAID, SELFPAY ==
--- NOTE | ~2025-04-13 | MM_ITS ---
EXAMINATION: MM screening josue BI w [facility] HISTORY: Screening TECHNIQUE: Craniocaudal and mediolateral oblique 3-D tomosynthesis images were obtained and synthetic 2-D images were generated. CAD analysis was submitted and interpreted. COMPARISON: Comparison to multiple prior studies sequentially, with oldest reviewed study dated 04/30. BREAST PARENCHYMAL COMPOSITION: There are scattered areas of fibroglandular density. FINDINGS: There is no evidence of suspicious mass, calcification, or architectural distortion to sug gest malignancy in either breast. IMPRESSION: 1. No mammographic evidence of malignancy. 2. Recommend routine screening mammography in one year. BI-RADS Category 1: Negative Reviewed, dictated and finalized at location B.
--- NOTE | ~2025-04-13 | DEXA_ITS ---
Bone Density Report Name: ANGELY JETER Age: 74 Sex: Female Ethnicity: White Date of : 1950 Indication: postmenopausal; screening for osteoporosis; height loss; asthma or emphysema; rheumatoid arthritis; Referring Provider: ALESHA, OLENA Study: Bone densitometry was performed. Exam Date: April 13, 2025 Accession number: [id number] Bone Density: Region BMD T-score Z-score Classification AP Spine(L1-L4) 0.936 -1.0 1.4 Normal Femoral Neck (Left) 0.721 -1.2 1.0 Osteopenia Total Hip (Left) 0.886 -0.5 1.4 Normal Femoral Neck (Right) 0.633 -1.9 0.2 Osteopenia Total Hip (Right) 0.751 -1.6 0.3 Osteopenia Total Hip Mean 0.819 -1.1 0.9 Osteopenia World Health Organization criteria for BMD impression classify patients as: Normal (T-score at or above -1.0), Osteopenia (T-score between -1.0 and -2.5), or Osteoporosis (T-score at or below -2.5). 10-year Fracture Risk: FRAX not reported because: Treated for osteoporosis Clinical Information Provided by Patient: Has rheumatoid arthritis Is being treated for osteoporosis Has used the following medications: Vitamin D, Calcium Has the following medical conditions: Asthma or Emphysema Patient maximum height was 65 Menopause Age: 46 No regular weight bearing exercise Does not regularly consume dairy products Drinks caffeinated beverages Onset of menses at age 13 Number of children 0 Impression: The patient has low bone mass, based on the Right Femoral Neck T-score. Discussion: It is important to ask patients whether they are taking their medications and to encourage continued and appropriate compliance with their osteoporosis therapies to reduce fracture risk. It is also important to review their risk factors and encourage appropriate calcium and vitamin D intakes, exercise, fall prevention and other lifestyle measures. Follow-Up: Consider a repeat BMD and Vertebral Fracture Assessment (VFA) exam in 2 years or sooner if medically necessary, to reassess this patient's status. Reported by: PAT on 04/13/2025 9:35:00 AM. Reviewed, dictated and finalized at location A.
== END 2025-04-13 08:54 | disposition home or self-care (01) ==
PROVIDERS: PCP Internal Medicine; Visit Provider Internal Medicine
DX: Z12.31 Encounter for screening mammogram for malignant neoplasm of breast (principal); Z78.0 Asymptomatic menopausal state; M85.852 Other specified disorders of bone density and structure, left thigh; M85.851 Other specified disorders of bone density and structure, right thigh
CPT/HCPCS: 77063; 77067; 77080